=== PATIENT | male | born 1950 | race Caucasian/White ===

== ENCOUNTER 2021-12-07 00:23 | Inpatient (IN) | payer MEDICARE ==
[2021-12-07] MEDS ORDERED: LORazepam 2 MG/ML INJ IV STA ×4 (00:27→00:43)
[2021-12-07] MEDS ORDERED: ETOMIDATE 2 MG/ML 10 ML VIAL IVP STA (00:34)
[2021-12-07] MEDS ORDERED: SUCCINYLCHOLINE CHLORIDE 200 MG/10 ML VIAL IV ONE (00:34)
[2021-12-07 00:41] LABS: Glucose,Whole Blood 178 mg/dL (70-110)
[2021-12-07] MEDS ORDERED: SODIUM CHLORIDE 0.9% 1,000 ML IV ONE ×4 (00:41→09:16)
[2021-12-07] MEDS ORDERED: MORPHINE SULFATE 4 MG/ML SYRINGE IV STA (00:43)
[2021-12-07 01:19] LABS: ALT 19 U/L (4-49); AST 31 U/L (17-59); African American GFR (CKD) 88 (>60 ml/min/1.73 sqM); Albumin 4.6 g/dL (3.5-5.0); Alcohol <10 mg/dL; Alkaline Phosphatase 80 U/L (38-126); Anion Gap 22 mmol/L; Blood Urea Nitrogen 18 mg/dL (9-20); Calcium 9.8 mg/dL (8.4-10.2); Carbon Dioxide 16 mmol/L (22-30); Chloride 102 mmol/L (98-107); Glucose 186 mg/dL (74-99); Non-African American GFR(CKD) 77 (>60 ml/min/1.73 sqM); Partial Thromboplastin Time 21.2 sec (22.0-30.0); Potassium 5.4 mmol/L (3.5-5.1); Prothrombin Time 10.5 sec (9.0-12.0); Sodium 140 mmol/L (137-145); Total Protein 7.4 g/dL (6.3-8.2)
--- NOTE | 2021-12-07 01:21 | XR ---
EXAMINATION TYPE: XR chest 1V portable DATE OF EXAM: 12/07/2021 COMPARISON: NONE HISTORY: Altered mental status TECHNIQUE: Single view FINDINGS: There is nasogastric tube looped in the stomach. The lungs are clear of consolidation. No h eart failure. No hilar mass. There is endotracheal tube is high and 12 cm from the leo. Bony thora x is intact. IMPRESSION: NG tube is in the stomach. The endotracheal tube is high in the trachea.
[2021-12-07 01:26] LABS: Appearance,Urine Clear (Clear); Bacteria,Urine Rare /hpf; Bilirubin,Urine Negative (Negative); Blood,Urine Trace (Negative); Color,Urine Yellow; Glucose,Urine (UA) Negative (Negative); Hyaline Casts,Urine 36 /lpf (0-2); Ketones,Urine 1+ (Negative); Leukocyte Esterase,Urine Negative (Negative); Mucus,Urine Rare /hpf; Nitrite,Urine Negative (Negative); PH, Urine 5.5 (5.0-8.0); Protein,Urine 1+ (Negative); RBC,Urine 2 /hpf (0-5); Specific Gravity,Urine 1.024 (1.001-1.035); Transitional Epi Cells,Urine <1 /hpf (0-1); Urobilinogen,Urine <2.0 mg/dL (<2.0); WBC,Urine 5 /hpf (0-5)
[2021-12-07 01:27] LABS: Basophils # (A) 0.1 k/uL (0-0.2); Basophils % (A) 1 %; Eosinophils # (A) 0.2 k/uL (0-0.7); Eosinophils % (A) 2 %; HCT 51.7 % (39.0-53.0); HGB 16.9 gm/dL (13.0-17.5); Hypochromasia Slight; Lymphocytes % (A) 24 %; MCH 34.2 pg (25.0-35.0); MCHC 32.6 g/dL (31.0-37.0); MCV 104.7 fL (80.0-100.0); Macrocytosis Slight; Mean Platelet Volume 7.8; Monocytes # (A) 0.5 k/uL (0-1.0); Monocytes % (A) 4 %; Neutrophils # (A) 8.3 k/uL (1.3-7.7); Neutrophils % (A) 67 %; Platelet Count 642 k/uL (150-450); RBC 4.94 m/uL (4.30-5.90); RDW 14.2 % (11.5-15.5); WBC 12.4 k/uL (3.8-10.6)
[2021-12-07 01:31] LABS: Amphetamine Screen,Urine Not Detected (NotDetected); Barbiturate Screen,Urine Not Detected (NotDetected); Benzodiazepines Screen,Urine Not Detected (NotDetected); Cocaine Screen,Urine Not Detected (NotDetected); Methadone Screen, Urine Not Detected (NotDetected); Opiate Screen,Urine Not Detected (NotDetected); Oxycodone Screen, Urine Not Detected (NotDetected); Phencyclidine Screen,Urine Not Detected (NotDetected); Tricyclic Antidepressant,Urine Not Detected (NotDetected); Urn Cannabinoid Scrn Detected (NotDetected)
[2021-12-07 01:37] LABS: ABG Base Excess -2.9 mmol/L; ABG HCO3 25 mmol/L (21-25); ABG Hematocrit 47 % (34.0-46.0); ABG PCO2 61 mmHg (35-45); ABG PH 7.22 (7.35-7.45); ABG PO2 >400 mmHg (83-108); ABG TCO2 27 mmol/L (19-24); Allen Test Performed? Yes
--- NOTE | 2021-12-07 01:40 | CT ---
EXAMINATION TYPE: CT brain wo con DATE OF EXAM: 12/07/2021 COMPARISON: None HISTORY: Fall, AMS CT DLP: 1276 mGycm Automated exposure control for dose reduction was used. Images obtained of the brain with no contrast. There is some mild hypodensity in the periventricular white matter. There is mild cerebral cortical a trophy. There is no mass effect or midline shift. No sign of intracranial hemorrhage. There is mild e thmoid sinus mucosal thickening. Calvarium is intact. Skull base is intact. IMPRESSION: Mild atrophy. No acute intracranial abnormality. Mild chronic small vessel ischemia.
--- NOTE | 2021-12-07 02:00 | CT ---
EXAMINATION TYPE: CT angio thor/abd pel aorta DATE OF EXAM: 12/07/2021 COMPARISON: 01/02/2016 HISTORY: Fall, AMS CT DLP: [id number] mGycm Automated exposure control for dose reduction was used. CONTRAST: Performed with IV Contrast, patient injected with 100ml mL of Isovue 370. Images obtained from the thoracic inlet to the floor the pelvis with IV contrast. There are images fr om the thoracic inlet to the mid pelvis without contrast. There are Three-D postprocessed images. The lungs are clear of consolidation. There is mild interstitial infiltrate and atelectasis at the thor ng bases. Heart size is normal. No mediastinal adenopathy. There are no hilar masses. Thoracic aorta is intact. No aneurysm. Liver spleen appear intact. There is dilated stomach. There is nasogastric tube in the stomach. No di lated ducts. Liver shows no focal defect. There is a 1.7 cm cyst in the body of the pancreas. Gallbla dder appears normal. There is no adrenal mass. Kidneys show satisfactory contrast opacification. There is no hydronephrosi s. Ureters are not dilated. No retroperitoneal adenopathy. 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 No retroperitoneal adenopathy. There is Hudson catheter in the urinary kasey dder. No inguinal hernia. Urinary bladder is empty. There are numerous sigmoid diverticula. No divert iculitis. No pelvic mass. There is no mesenteric edema. No ascites or free air. No sign of a bowel obstruction. The thoracic aorta shows no aneurysm. The ascending aorta measures 3.3 cm. There is arterial flow in the celiac artery and superior mesenteric artery. There is arterial flow in the renal and iliac and f emoral arteries. No evidence of dissection. No evidence of hemodynamic stenosis. 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 Aneurysm is increased compared to old exam of 2016. Previous exam shows diameter of 3.5 cm. No evidence of a leak. No dissection. There is sigmoid diver ticulosis without diverticulitis. No evidence of hemodynamic arterial there are some interstitial inf iltrates at the lung bases which are new compared to old exam. Stenosis.
--- NOTE | 2021-12-07 02:28 | XR ---
EXAMINATION TYPE: XR chest 1V confirm line [facility] [place] DATE OF EXAM: 12/07/2021 COMPARISON: Today HISTORY: Tube placement TECHNIQUE: Single view FINDINGS: The endotracheal tube is 5.5 cm from the leo. Heart is normal. Lungs are clear of consol idation. Nasogastric tube is in the stomach. No pleural effusion. IMPRESSION: Endotracheal tube in fairly good position. No heart failure. No pulmonary consolidation
[2021-12-07] MEDS ORDERED: NALOXONE 0.4 MG/ML 1 ML VIAL IV PRN (03:07)
[2021-12-07] MEDS ORDERED: ARTIFICIAL TEARS OINTMENT 3.5 GM TUBE BOTH EYES PRN (03:07)
[2021-12-07] MEDS ORDERED: ACETAMINOPHEN SUPPOSITORY 650 MG SUPP RECTAL PRN (03:07)
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
[2021-12-07] MEDS ORDERED: LACTULOSE 20 GM/30 ML CUP NG-TUBE STA (03:33)
[2021-12-07 04:19] LABS: Glucose,Whole Blood 117 mg/dL (70-110)
[2021-12-07] MEDS: MORPHINE SULFATE 4 MG/ML SYRINGE IV PRN ×4 (04:25→22:35)
[2021-12-07] MEDS: SODIUM CHLORIDE 0.9% 1,000 ML IV SCH (05:08)
[2021-12-07 05:58] LABS: ABG Base Excess 1.9 mmol/L; ABG HCO3 28 mmol/L (21-25); ABG Hematocrit 44 % (34.0-46.0); ABG Oxygen Saturation 97.6 % (94-97); ABG PCO2 51 mmHg (35-45); ABG PH 7.34 (7.35-7.45); ABG PO2 94 mmHg (83-108); ABG TCO2 29 mmol/L (19-24); Allen Test Performed? Yes
[2021-12-07 06:40] LABS: African American GFR (CKD) >90 (>60 ml/min/1.73 sqM); Anion Gap 7 mmol/L; Blood Urea Nitrogen 16 mg/dL (9-20); Calcium 7.2 mg/dL (8.4-10.2); Carbon Dioxide 24 mmol/L (22-30); Chloride 107 mmol/L (98-107); Glucose 92 mg/dL (74-99); Non-African American GFR(CKD) >90 (>60 ml/min/1.73 sqM); Potassium 3.6 mmol/L (3.5-5.1); Sodium 138 mmol/L (137-145)
[2021-12-07] MEDS ORDERED: Potassium Replacement Protocol 1 EACH MISC MISCELLANE PRN (06:47)
[2021-12-07 07:00] LABS: Basophils # (A) 0.1 k/uL (0-0.2); Basophils % (A) 0 %; Eosinophils % (A) 0 %; HCT 40.3 % (39.0-53.0); Lymphocytes % (A) 8 %; MCH 34.5 pg (25.0-35.0); MCHC 34.1 g/dL (31.0-37.0); MCV 101.4 fL (80.0-100.0); Macrocytosis Slight; Mean Platelet Volume 7.6; Monocytes # (A) 0.8 k/uL (0-1.0); Monocytes % (A) 6 %; Neutrophils # (A) 11.7 k/uL (1.3-7.7); Neutrophils % (A) 85 %; Platelet Count 441 k/uL (150-450); RBC 3.97 m/uL (4.30-5.90); RDW 14.3 % (11.5-15.5); WBC 13.8 k/uL (3.8-10.6)
[2021-12-07] MEDS ORDERED: POTASSIUM BICARBONATE/CIT AC 20 MEQ TABLET.EFF NG-TUBE SCH (07:00)
[2021-12-07 07:02] LABS: HGB 13.7 gm/dL (13.0-17.5)
[2021-12-07] MEDS: IPRATROPIUM-ALBUTEROL 3 ML NEB INHALATION SCH ×4 (07:50→19:24)
[2021-12-07] MEDS: FAMOTIDINE 20 MG/2 ML VIAL IV SCH ×2 (09:23→22:36)
[2021-12-07] MEDS: CHLORHEXIDINE GLUCONATE 15 ML CUP MUCOUS MEM SCH ×2 (09:23→22:35)
--- NOTE | 2021-12-07 10:40 | P.CNPUL ---
History of Present Illness Consult date: 12/07/21 Requesting physician: Dani Paul Reason for consult: other Chief complaint: Syncope. History of present illness: Pulmonary/critical care consult dated 12/07/2021. 71-year-old male brought to the emergency room, on December 07. The patient apparently was at home, in the bathroom having a bowel movement. He apparently collapsed, and was unconscious for a period of time. EMS brought the patient in to be evaluated. It does not appear that he had any bystander CPR. Anyway, after being in the emergency room, the patient apparently became very agitated, and was refusing all treatments. He apparently was not able to give much of a history or any history. He received Ativan 10 mg, to settle him down, and eventually, so that he can be properly evaluated, was intubated by the ER physician. I did speak to the ER physician at about 3:00 in the morning. Currently, the patient's in the intensive care unit, on the ventilator, volume assist control, rate 22, tidal volume 400, FiO2 50%, and a PEEP of 5. Arterial blood gases show pO2 of 94, pCO2 51, and the pH is 7.34. His drug screen was positive for THC. His initial ammonia level was 167, but a repeat was in the normal range, suggesting that the initial one was maybe erroneous. His past medical history was positive for asthma, COPD, lymphoma, and ongoing tobacco and alcohol intake. He's currently on saline at 75 mL an hour, propofol at 45 mcg/kg/m, and is receiving a saline fluid bolus. Currently labs include a white count of 13.8, hemoglobin 13.7, hematocrit 40.3, and a platelet count of 441,000. Initial blood gases showed a pO2 of greater than 400, pCO2 of 61, and a pH is 7.22. Sodium, potassium, chloride, CO2, anion gap, BUN, and creatinine were all normal. The repeat ammonia level was less than 9. Calcium is 7.2. Chest was essentially normal. Brain CT showed nothing acute. CAT scan of the abdomen and pelvis and chest, revealed an aneurysm. There is also some bibasilar atelectasis/infiltrate. Review of Systems REVIEW OF SYSTEMS: CONSTITUTIONAL: Syncope. NEUROLOGIC: Acute agitation and mental status changes. HEENT: [ Negative.] CARDIAC: [Negative.] PULMONARY: [Negative.] GI: [Negative.] : [Negative.] RHEUMATOLOGIC: [ Negative.] IMMUNOLOGIC: [ Negative.] ENDOCRINE: [Negative. ] DERMATOLOGIC: [Negative.] Past Medical History Past Medical History: Asthma, Cancer, COPD Additional Past Medical History / Comment(s): Lymphoma , arthritis History of Any Multi-Drug Resistant Organisms: None Reported Past Surgical History: Tonsillectomy Additional Past Surgical History / Comment(s): mediport(not functioning), Past Anesthesia/Blood Transfusion Reactions: No Reported Reaction Additional Past Anesthesia/Blood Transfusion Reaction / Comment(s): only surg as child Past Psychological History: Anxiety Smoking Status: Current every day smoker Past Alcohol Use History: Occasional Additional Past Alcohol Use History / Comment(s): Current smoker Past Drug Use History: None Reported Additional Drug Use History / Comment(s): Per "pt sneaks cigarettes" and drinks maybe 1-2 beers a day. - Past Family History Father Family Medical History: Cancer Mother Family Medical History: Cancer Sister(s) Family Medical History: Cancer Medications and Allergies Home Medications Medication Instructions Recorded Confirmed Type Albuterol Inhaler [Ventolin 1 - 2 puff INHALATION Q6HR PRN 04/03/15 05/10/15 History Inhaler] Beclomethasone Dipropionate [Qvar 1 puff INHALATION BID 04/03/15 05/10/15 History 40 mcg/puff] Montelukast [Singulair] 10 mg PO HS 04/03/15 05/10/15 History Budesonide(Dose Unknown) 1 applicate INHALATION BID 05/07/15 05/10/15 History Allergies Allergy/AdvReac Type Severity Reaction Status Date / Time ibuprofen [From Motrin] Allergy Rash/Hives Verified 05/07/15 12:27 Physical Exam Osteopathic Statement: *. No significant issues noted on an osteopathic structural exam other than those noted in the History and Physical/Consult. Vitals: Vital Signs Temp Pulse Pulse Resp BP BP Pulse Ox 12/07/21 08:45 70 19 100/64 99 12/07/21 08:30 73 18 104/66 100 12/07/21 08:15 69 18 87/62 100 12/07/21 08:00 68 22 87/56 99 12/07/21 07:57 68 12/07/21 07:50 66 12/07/21 07:46 12/07/21 07:45 67 20 87/56 97 12/07/21 07:41 97 12/07/21 07:30 97.8 F 69 19 90/56 96 12/07/21 07:15 70 20 90/56 97 12/07/21 07:00 68 20 88/55 96 12/07/21 06:45 70 20 90/56 96 12/07/21 06:30 70 20 88/57 97 12/07/21 06:20 69 22 88/57 96 12/07/21 06:10 71 20 96/58 97 12/07/21 06:00 71 22 88/56 97 12/07/21 05:50 73 22 88/56 96 12/07/21 05:40 74 20 87/58 95 12/07/21 05:30 77 24 87/60 95 12/07/21 05:20 80 22 87/60 95 12/07/21 05:10 83 23 90/61 95 12/07/21 05:00 86 24 98/66 95 12/07/21 04:50 91 24 98/66 95 12/07/21 04:40 95 25 H 125/79 96 12/07/21 04:30 105 H 28 H 136/70 97 12/07/21 04:20 97.7 F 109 H 30 H 136/70 99 12/07/21 04:16 12/07/21 04:10 22 12/07/21 04:00 25 H 12/07/21 03:44 97.7 F 83 22 112/69 97 12/07/21 03:41 97.7 F 103 H 30 H 142/89 12/07/21 02:38 94 16 115/70 95 12/07/21 02:06 12/07/21 01:30 95 125/92 99 12/07/21 01:25 12/07/21 01:23 12/07/21 00:35 128 H 24 135/94 92 L FiO2 12/07/21 08:45 50 12/07/21 08:30 12/07/21 08:15 12/07/21 08:00 50 12/07/21 07:57 12/07/21 07:50 12/07/21 07:46 50 12/07/21 07:45 12/07/21 07:41 12/07/21 07:30 50 12/07/21 07:15 12/07/21 07:00 50 12/07/21 06:45 12/07/21 06:30 12/07/21 06:20 12/07/21 06:10 12/07/21 06:00 50 12/07/21 05:50 12/07/21 05:40 12/07/21 05:30 12/07/21 05:20 12/07/21 05:10 12/07/21 05:00 50 12/07/21 04:50 12/07/21 04:40 12/07/21 04:30 12/07/21 04:20 50 12/07/21 04:16 50 12/07/21 04:10 12/07/21 04:00 50 12/07/21 03:44 12/07/21 03:41 50 12/07/21 02:38 12/07/21 02:06 50 12/07/21 01:30 12/07/21 01:25 100 12/07/21 01:23 100 12/07/21 00:35 Intake and Output 12/06/21 12/07/21 12/07/21 22:59 06:59 14:59 Intake Total 762.461 7818 Output Total 285 130 Balance 20.321 2095 Intake: IV 2150 0.9 NACL 150 0.9 NACL bolus 2000 Intake, IV Titration 305.321 75 Amount Sodium Chloride 0.9% 1, 225 75 000 ml @ 75 mls/hr IV . [id number] ONE Rx#:[id number] propofoL 1,000 mg In 80.321 Empty Bag 1 bag @ 5 MCG/ KG/MIN 2.041 mls/hr IV . Q24H [facility] Rx#:[id number] Output: Urine 285 130 Other: Voiding Method Indwelling Catheter Indwelling Catheter Weight 68.039 kg No acute distress, sedated, with an orally placed endotracheal tube and NG tube. HEENT examination is grossly unremarkable. Neck supple. Full range of motion. No adenopathy thyromegaly or neck vein distention. Cardiovascular examination reveals regular rhythm rate. S1-S2 normal. No S3 or S4. No discernible murmur noted. Heart rate 70 bpm. Lungs reveal mostly clear breath sounds. Minimal scattered rhonchi. No wheezes or crackles. Breath sounds equal bilaterally. Saturations are 99%. Abdomen soft bowel sounds are heard. No masses or tenderness. Extremities are intact. No cyanosis clubbing or edema. Skin is without rash or lesion. Neurologic examination cannot be properly assessed at this time. Results - Laboratory Findings CBC and BMP: 12/07/21 06:06 12/07/21 06:06 ABG ABG pH 7.34 (7.35-7.45) L 12/07/21 05:57 ABG pCO2 51 mmHg (35-45) H 12/07/21 05:57 ABG pO2 94 mmHg (83-108) 12/07/21 05:57 ABG O2 Saturation 97.6 % (94-97) H 12/07/21 05:57 PT/INR, D-dimer PT 10.5 sec (9.0-12.0) 12/07/21 00:46 INR 1.0 (<1.2) 12/07/21 00:46 Abnormal lab findings: Abnormal Labs 12/07/21 12/07/21 12/07/21 00:36 00:39 00:46 WBC 12.4 H RBC MCV 104.7 H Plt Count 642 H Neutrophils # 8.3 H APTT 21.2 L ABG pH ABG pCO2 ABG pO2 ABG HCO3 ABG Total CO2 ABG O2 Saturation ABG Hematocrit Potassium Carbon Dioxide Glucose POC Glucose (mg/dL) 178 H Calcium Ammonia Urine Protein Urine Ketones Urine Blood Urine Bacteria Hyaline Casts Urine Mucus U Marijuana (THC) Screen 12/07/21 12/07/21 12/07/21 00:46 00:46 00:46 WBC RBC MCV Plt Count Neutrophils # APTT ABG pH ABG pCO2 ABG pO2 ABG HCO3 ABG Total CO2 ABG O2 Saturation ABG Hematocrit Potassium 5.4 H Carbon Dioxide 16 L Glucose 186 H POC Glucose (mg/dL) Calcium Ammonia 167 H Urine Protein 1+ H Urine Ketones 1+ H Urine Blood Trace H Urine Bacteria Rare H Hyaline Casts 36 H Urine Mucus Rare H U Marijuana (THC) Screen Detected H 12/07/21 12/07/21 12/07/21 01:30 04:17 05:57 WBC RBC MCV Plt Count Neutrophils # APTT ABG pH 7.22 L 7.34 L ABG pCO2 61 H 51 H ABG pO2 >400 H ABG HCO3 28 H ABG Total CO2 27 H 29 H ABG O2 Saturation 100.0 H 97.6 H ABG Hematocrit 47 H Potassium Carbon Dioxide Glucose POC Glucose (mg/dL) 117 H Calcium Ammonia Urine Protein Urine Ketones Urine Blood Urine Bacteria Hyaline Casts Urine Mucus U Marijuana (THC) Screen 12/07/21 12/07/21 06:06 06:06 WBC 13.8 H RBC 3.97 L MCV 101.4 H Plt Count Neutrophils # 11.7 H APTT ABG pH ABG pCO2 ABG pO2 ABG HCO3 ABG Total CO2 ABG O2 Saturation ABG Hematocrit Potassium Carbon Dioxide Glucose POC Glucose (mg/dL) Calcium 7.2 L Ammonia Urine Protein Urine Ketones Urine Blood Urine Bacteria Hyaline Casts Urine Mucus U Marijuana (THC) Screen - Diagnostic Findings Chest x-ray: image reviewed CT scan - chest: image reviewed Assessment and Plan Assessment: Acute syncope, of unclear etiology, followed by severe agitation and confusion, requiring intubation and mechanical ventilation on December 07. Mild respiratory acidosis. History of COPD/asthma. History of ongoing tobacco use with nicotine addiction. History of alcohol use, quantity unknown. History of lymphoma. Questionable hyperammonemia. Plan: Plan dated 11/29/2021. The patient was placed on updrafts, every 4 [id number]. The patient will be getting additional fluid bolus, because of hypotension. The patient's blood gases are fine. The patient has a very mild respiratory acidosis. Repeat ammonia level is less than 9. The patient remains on propofol for sedation. Labs, x-rays, and medications are all reviewed. Prognosis is guarded. Time with Patient: Greater than 30
--- NOTE | 2021-12-07 11:13 | P.HPIM ---
History of Present Illness Patient is a 71-year-old male [facility] emergency department with altered mental status patient was found on the floor at home and the family brought him here patient is quite a bit agitated and was given at 10 mg dose of Ativan and the morphine after which her his mental status has worsened because of which patient was intubated. Patient although found to have hypercapnic respiratory failure with pCO2 of around 60 and pH of 7.22 patient appears to be a heavy smoker smoker was wheezing on exam, patient is being treated for COPD exacerbation. Patient had elevated ammonia level up to 125 patient does drink alcohol on a regular basis although liver enzymes are within normal. Within a few hours this ammonia level has come down to less than 9. Patient was given a dose of lactulose. Patient the ABGs improved now with pCO2 of around 51 and pH of around 7.34. Patient has elevated white cell count. Patient is on assist- control ventilation with tidal volume of 400 FiO2 of 50% PEEP of 5 set up respiratory rate of 22. Patient is breathing over the ventilator. Patient does have history of lymphoma unsure whether this is in remission will have to get the hip that history from the family. Patient is on propofol drip at this time occasionally still getting agitated. CT of the brain and did not show any signi ficant abnormality of the thoracic CT did show 5 cm abdominal aortic aneurysm the size of which increased her from last test which was about 2 years ago from 3.5 cm. There was no evidence of leak or dissection. REVIEW OF SYSTEMS: Patient is intubated and sedated PHYSICAL EXAMINATION: GENERAL: Intubated sedated on ventilatory support as mentioned above HEENT: Pupils are round and equally reacting to light. EOMI. No scleral icterus. No conjunctival pallor. Normocephalic, atraumatic. No pharyngeal erythema. No thyromegaly. CARDIOVASCULAR: S1 and S2 present. No murmurs, rubs, or gallops. PULMONARY: Expiratory wheezing on exam ABDOMEN: Soft, nontender, nondistended, normoactive bowel sounds. No palpable organomegaly. MUSCULOSKELETAL: No joint swelling or deformity. EXTREMITIES: No cyanosis, clubbing, or pedal edema. NEUROLOGICAL: Sedated SKIN: No rashes. Assessment and plan -Altered mental status etiology is not clear may be related to marijuana use and may be secondary to hypercapnic respiratory failure as well. It appears to have metabolic encephalopathy. Patient had elevated ammonia level but my suspicion for hepatic encephalopathy is low as the repeat test was less than 9 within few hours and only received 1 dose of lactulose -Respiratory acidosis and acute respiratory failure, hypercapnic respiratory failure acute secondary to COPD exacerbation patient will be started on systemic steroids -History of lymphoma unknown whether patient is actually receiving treatment or and relapse -Leukocytosis which is reactive -Acute COPD exacerbation -Nicotine use -Possibly of syncope patient is undergoing workup for syncope as well as seizures carotid Doppler is being obtained and a neurology was consulted from ER, EGDs being obtained by neurology. DVT prophylaxis: Lovenox Past Medical History Past Medical History: Asthma, Cancer, COPD Additional Past Medical History / Comment(s): Lymphoma , arthritis History of Any Multi-Drug Resistant Organisms: None Reported Past Surgical History: Tonsillectomy Additional Past Surgical History / Comment(s): mediport(not functioning), Past Anesthesia/Blood Transfusion Reactions: No Reported Reaction Additional Past Anesthesia/Blood Transfusion Reaction / Comment(s): only surg as child Past Psychological History: Anxiety Smoking Status: Current every day smoker Past Alcohol Use History: Occasional Additional Past Alcohol Use History / Comment(s): Current smoker Past Drug Use History: None Reported Additional Drug Use History / Comment(s): Per "pt sneaks cigarettes" and d rinks maybe 1-2 beers a day. - Past Family History Father Family Medical History: Cancer Mother Family Medical History: Cancer Sister(s) Family Medical History: Cancer Medications and Allergies Home Medications Medication Instructions Recorded Confirmed Type Albuterol Inhaler [Ventolin 1 - 2 puff INHALATION Q6HR PRN 04/03/15 05/10/15 History Inhaler] Beclomethasone Dipropionate [Qvar 1 puff INHALATION BID 04/03/15 05/10/15 History 40 mcg/puff] Montelukast [Singulair] 10 mg PO HS 04/03/15 05/10/15 History Budesonide(Dose Unknown) 1 applicate INHALATION BID 05/07/15 05/10/15 History Allergies Allergy/AdvReac Type Severity Reaction Status Date / Time ibuprofen [From Motrin] Allergy Rash/Hives Verified 05/07/15 12:27 Physical Exam Vitals: Vital Signs Temp Pulse Pulse Resp BP BP Pulse Ox 12/07/21 09:15 67 22 84/57 98 12/07/21 09:00 68 20 100/64 98 12/07/21 08:45 70 19 100/64 99 12/07/21 08:30 73 18 104/66 100 12/07/21 08:15 69 18 87/62 100 12/07/21 08:00 68 22 87/56 99 12/07/21 07:57 68 12/07/21 07:50 66 12/07/21 07:46 12/07/21 07:45 67 20 87/56 97 12/07/21 07:41 97 12/07/21 07:30 97.8 F 69 19 90/56 96 12/07/21 07:15 70 20 90/56 97 12/07/21 07:00 68 20 88/55 96 12/07/21 06:45 70 20 90/56 96 12/07/21 06:30 70 20 88/57 97 12/07/21 06:20 69 22 88/57 96 12/07/21 06:10 71 20 96/58 97 12/07/21 06:00 71 22 88/56 97 12/07/21 05:50 73 22 88/56 96 12/07/21 05:40 74 20 87/58 95 12/07/21 05:30 77 24 87/60 95 12/07/21 05:20 80 22 87/60 95 12/07/21 05:10 83 23 90/61 95 12/07/21 05:00 86 24 98/66 95 12/07/21 04:50 91 24 98/66 95 12/07/21 04:40 95 25 H 125/79 96 12/07/21 04:30 105 H 28 H 136/70 97 12/07/21 04:20 97.7 F 109 H 30 H 136/70 99 12/07/21 04:16 12/07/21 04:10 22 12/07/21 04:00 25 H 12/07/21 03:44 97.7 F 83 22 112/69 97 12/07/21 03:41 97.7 F 103 H 30 H 142/89 12/07/21 02:38 94 16 115/70 95 12/07/21 02:06 12/07/21 01:30 95 125/92 99 12/07/21 01:25 12/07/21 01:23 12/07/21 00:35 128 H 24 135/94 92 L FiO2 12/07/21 09:15 12/07/21 09:00 50 12/07/21 08:45 50 12/07/21 08:30 12/07/21 08:15 12/07/21 08:00 50 12/07/21 07:57 12/07/21 07:50 12/07/21 07:46 50 12/07/21 07:45 12/07/21 07:41 12/07/21 07:30 50 12/07/21 07:15 12/07/21 07:00 50 12/07/21 06:45 12/07/21 06:30 12/07/21 06:20 12/07/21 06:10 12/07/21 06:00 50 12/07/21 05:50 12/07/21 05:40 12/07/21 05:30 12/07/21 05:20 12/07/21 05:10 12/07/21 05:00 50 12/07/21 04:50 12/07/21 04:40 12/07/21 04:30 12/07/21 04:20 50 12/07/21 04:16 50 12/07/21 04:10 12/07/21 04:00 50 12/07/21 03:44 12/07/21 03:41 50 12/07/21 02:38 12/07/21 02:06 50 12/07/21 01:30 12/07/21 01:25 100 12/07/21 01:23 100 12/07/21 00:35 Intake and Output 12/06/21 12/07/21 12/07/21 22:59 06:59 14:59 Intake Total 665.115 1085 Output Total 285 230 Balance 20.321 2070 Intake: IV 2225 0.9 NACL 225 0.9 NACL bolus 2000 Intake, IV Titration 305.321 75 Amount Sodium Chloride 0.9% 1, 225 75 000 ml @ 75 mls/hr IV . [id number] ONE Rx#:[id number] propofoL 1,000 mg In 80.321 Empty Bag 1 bag @ 5 MCG/ KG/MIN 2.041 mls/hr IV . Q24H [facility] Rx#:[id number] Output: Urine 285 230 Other: Voiding Method Indwelling Catheter Indwelling Catheter Weight 68.039 kg Results CBC & Chem 7: 12/07/21 06:06 12/07/21 06:06 Labs: Abnormal Lab Results - Last 24 Hours (Table) 12/07/21 12/07/21 12/07/21 Range/Units 00:36 00:39 00:46 WBC 12.4 H (3.8-10.6) k/uL RBC (4.30-5.90) m/uL MCV 104.7 H (80.0-100.0) fL Plt Count 642 H (150-450) k/uL Neutrophils # 8.3 H (1.3-7.7) k/uL APTT 21.2 L (22.0-30.0) sec ABG pH (7.35-7.45) ABG pCO2 (35-45) mmHg ABG pO2 (83-108) mmHg ABG HCO3 (21-25) mmol/L ABG Total CO2 (19-24) mmol/L ABG O2 Saturation (94-97) % ABG Hematocrit (34.0-46.0) % Potassium (3.5-5.1) mmol/L Carbon Dioxide (22-30) mmol/L Glucose (74-99) mg/dL POC Glucose (mg/dL) 178 H (70-110) mg/dL Calcium (8.4-10.2) mg/dL Ammonia (<30) umol/L Urine Protein (Negative) Urine Ketones (Negative) Urine Blood (Negative) Urine Bacteria (None) /hpf Hyaline Casts (0-2) /lpf Urine Mucus (None) /hpf U Marijuana (THC) Screen (NotDetected) 12/07/21 12/07/21 12/07/21 Range/Units 00:46 00:46 00:46 WBC (3.8-10.6) k/uL RBC (4.30-5.90) m/uL MCV (80.0-100.0) fL Plt Count (150-450) k/uL Neutrophils # (1.3-7.7) k/uL APTT (22.0-30.0) sec ABG pH (7.35-7.45) ABG pCO2 (35-45) mmHg ABG pO2 (83-108) mmHg ABG HCO3 (21-25) mmol/L ABG Total CO2 (19-24) mmol/L ABG O2 Saturation (94-97) % ABG Hematocrit (34.0-46.0) % Potassium 5.4 H (3.5-5.1) mmol/L Carbon Dioxide 16 L (22-30) mmol/L Glucose 186 H (74-99) mg/dL POC Glucose (mg/dL) (70-110) mg/dL Calcium (8.4-10.2) mg/dL Ammonia 167 H (<30) umol/L Urine Protein 1+ H (Negative) Urine Ketones 1+ H (Negative) Urine Blood Trace H (Negative) Urine Bacteria Rare H (None) /hpf Hyaline Casts 36 H (0-2) /lpf Urine Mucus Rare H (None) /hpf U Marijuana (THC) Screen Detected H (NotDetected) 12/07/21 12/07/21 12/07/21 Range/Units 01:30 04:17 05:57 WBC (3.8-10.6) k/uL RBC (4.30-5.90) m/uL MCV (80.0-100.0) fL Plt Count (150-450) k/uL Neutrophils # (1.3-7.7) k/uL APTT (22.0-30.0) sec ABG pH 7.22 L 7.34 L (7.35-7.45) ABG pCO2 61 H 51 H (35-45) mmHg ABG pO2 >400 H (83-108) mmHg ABG HCO3 28 H (21-25) mmol/L ABG Total CO2 27 H 29 H (19-24) mmol/L ABG O2 Saturation 100.0 H 97.6 H (94-97) % ABG Hematocrit 47 H (34.0-46.0) % Potassium (3.5-5.1) mmol/L Carbon Dioxide (22-30) mmol/L Glucose (74-99) mg/dL POC Glucose (mg/dL) 117 H (70-110) mg/dL Calcium (8.4-10.2) mg/dL Ammonia (<30) umol/L Urine Protein (Negative) Urine Ketones (Negative) Urine Blood (Negative) Urine Bacteria (None) /hpf Hyaline Casts (0-2) /lpf Urine Mucus (None) /hpf U Marijuana (THC) Screen (NotDetected) 12/07/21 12/07/21 Range/Units 06:06 06:06 WBC 13.8 H (3.8-10.6) k/uL RBC 3.97 L (4.30-5.90) m/uL MCV 101.4 H (80.0-100.0) fL Plt Count (150-450) k/uL Neutrophils # 11.7 H (1.3-7.7) k/uL APTT (22.0-30.0) sec ABG pH (7.35-7.45) ABG pCO2 (35-45) mmHg ABG pO2 (83-108) mmHg ABG HCO3 (21-25) mmol/L ABG Total CO2 (19-24) mmol/L ABG O2 Saturation (94-97) % ABG Hematocrit (34.0-46.0) % Potassium (3.5-5.1) mmol/L Carbon Dioxide (22-30) mmol/L Glucose (74-99) mg/dL POC Glucose (mg/dL) (70-110) mg/dL Calcium 7.2 L (8.4-10.2) mg/dL Ammonia (<30) umol/L Urine Protein (Negative) Urine Ketones (Negative) Urine Blood (Negative) Urine Bacteria (None) /hpf Hyaline Casts (0-2) /lpf Urine Mucus (None) /hpf U Marijuana (THC) Screen (NotDetected) Thrombosis Risk Factor Assmnt - Choose All That Apply Any of the Below Risk Factors Present?: Yes Each Factor Represents 1 point: Abnormal pulmonary function (COPD), Medical pt on bed rest Other Risk Factors: Yes Each Risk Factor Represents 2 Points: Age 61-74 years, Patient confined to bed Thrombosis Risk Factor Assessment Total Risk Factor Score: 6 Thrombosis Risk Factor Assessment Level: High Risk
[2021-12-07] MEDS: methylPREDNISolone SOD SUCCI 40 MG/ML 1 ML VIAL IV SCH ×2 (11:41→22:35)
[2021-12-07] MEDS: NOREPINEPHRINE 4 MG in SODIUM CHLORIDE 0.9% 250 ML IV SCH (11:53)
--- NOTE | 2021-12-07 13:31 | US ---
EXAMINATION TYPE: US carotid duplex BILAT DATE OF EXAM: 12/07/2021 COMPARISON: NONE CLINICAL HISTORY: syncope. Syncope. TECHNIQUE: Carotid duplex ultrasound examination. Indirect Doppler criteria was utilized. FINDINGS: EXAM MEASUREMENTS: RIGHT: Peak Systolic Velocity (PSV) cm/sec ----- Right CCA: 95.2 ----- Right ICA: 115.7 ----- Right ECA: 143.0 ICA/CCA ratio: 1.2 RIGHT: End Diastole cm/sec ----- Right CCA: 20.4 ----- Right ICA: 25.2 ----- Right ECA: 11.0 LEFT: Peak Systolic Velocity (PSV) cm/sec ----- Left CCA: 115.1 ----- Left ICA: 136.2 ----- Left ECA: 143.1 ICA/CCA ratio: 1.2 LEFT: End Diastole cm/sec ----- Left CCA: 24.1 ----- Left ICA: 24.7 ----- Left ECA: 9.0 VERTEBRALS (direction of flow): Right Vertebral: Antegrade Left Vertebral: Antegrade Rhythm: Normal INSPECTOR RADAR AND ELECTRONICS NOTES: Exam is limited due to movement, patient is on a ventilator. Exam done portable. Intimal thickening seen bilaterally. Plaque seen within bilateral bulbs and prox right ICA. *Elevated velocities within bilateral ECA and left ICA. Incidental finding: Anechoic area seen within right thyroid lobe: 0.9 x 0.8 x 0.7 cm. Hypoechoic area with hyperechoic center seen within the left neck: 1.1 x 1.0 x 0.5 cm consistent with normal lymph node. IMPRESSION: Limited exam with Less than 50% stenosis of the bilateral carotid bifurcations. Criteria for Assigning % of Stenosis / Diameter reduction (Estimation based on the indirect measurements of the internal carotid artery velocities (ICA PSV). 1. Normal (no stenosis)=ICA PSV < 125 cm/s: ratio < 2.0: ICA EDV<40 cm/s. 2. Less than 50% stenosis=ICA PSV < 125 cm/s: ratio < 2.0: ICA EDV<40 cm/s. 3. 50 to 69% stenosis=ICA PSV of 125 to 230 cm/s: ration 2.0 ? 4.0: ICA EDV 40-100 cm/s. 4. Greater than 70% stenosis to near occlusion= ICA PSV > 230 cm/s: ratio > 4.0: ICA EDV > 100 cm/s. 5. Near occlusion= ICA PSV velocities may be low or undetectable: variable ratio and ICA EDV. 6. Total occlusion=unable to detect flow.
--- NOTE | 2021-12-07 14:26 | P.CNNES ---
History of Present Illness Consult date: 12/07/21 Requesting physician: Danny Beck Reason for Consult: Altered mental status History of Present Illness: Patient is a 71-year-old male came to the hospital by ambulance early this morning at 12:23 AM. According to EMS flow sheet when they arrived, patient was in the bathroom floor with family present. Family mentioned that patient got up to use the bathroom and shortly after they heard him fall. Family states they found patient unresponsive on the bathroom floor, patient regained consciousness but was not acting appropriate and skin was purple. Family states patient was trying to talk but sounded slurred and did not make sense. Last known well was when he went to bed around 9 PM. No use of blood thinners family mentioned that patient was fine prior to this episode and had no recent history of illnesses. On their examination patient was altered, alert but incoherent and uncooperative. Skin was diaphoretic with cyanosis. Pupils 4 mm. Patient has multiple skin tears with active bleeding was lower arms bilaterally. Patient does not follow commands. They were unable to perform stroke assessment. Patient was noted to have combative behavior and EKG shows sinus rhythm. Patient was hypoxic, and they attempted to admit oxygen via nonrebreather mask at 15 Ditter per minute but patient removed oxygen tubing. Vital signs on arrival blood pressure could not be taken because of patient confusion. Pulse rate was 96. Respiration 30, saturation 86%. Blood glucose 1 56 mg/dL. Vital signs arrival blood pressure 135/94 pulse rate 24 temperature 97.7F. Blood test shows review BC 12.4 hemoglobin 16.9, elevated MCV 104.7 and platelet 642. PTT PTT normal, ABG with pH 7.22, pCO2 61, as pO2 400 and saturation 100%. Patient's sodium is normal potassium 5.4, normal renal and hepatic panel. Am monia is elevated 167. Troponin negative. UA is negative and urine drug screen positive for marijuana. Blood alcohol level negative. CT head showed mild atrophy. No acute intracranial abnormality. Mild chronic small vessel ischemia. Chest x-ray reported as normal. CT of the chest showed a 5 cm aneurysm of the mid abdominal aorta. Aneurysm is increased compared to old exam of 2016. Previous exam shows diameter of 3.5 cm. No evidence of a leak. No dissection. In the ER patient was very agitated, restless, wild. He had to be restrained in order to place IV. Patient received multiple doses of Ativan, 2 mg at 12:34 AM, 2 mg at 12:28 AM, 2 mg at 12:27 AM and 4 mg at 12:40 AM. Mahad puentes became very groggy, therefore was intubated. Apparently patient required succinylcholine and etomidate for intubation. Patient arrived to the ICU about 2 hours earlier. Per nurse report, patient has been sedated, on mechanical ventilation. No seizure-like activity has been noticed. When the sedation is decreased, he becomes very restless, agitated. There is some report of possible tobacco and alcohol use. He does have asthma, COPD also has history of lymphoma and has a MediPort. I spoke to patient's on the phone. She concurred regarding the history as mentioned above. She mentioned that patient was a heavy drinker for almost 10 years, quit 20 years ago. Now he barely drinks alcohol. A shunt admitted that yesterday they went to [employer] in [place] and he had a drink of jumbled [place] and had a tequila drink with dinner. He smokes marijuana occasionally. She does not know how much he smokes tobacco. Review of Systems ROS unobtainable: due to endotracheal tube, due to mental status Past Medical History Past Medical History: Asthma, Cancer, COPD Additional Past Medical History / Comment(s): Lymphoma , arthritis History of Any Multi-Drug Resistant Organisms: None Reported Past Surgical History: Tonsillectomy Additional Past Surgical History / Comment(s): mediport(not functioning), Past Anesthesia/Blood Transfusion Reactions: No Reported Reaction Additional Past Anesthesia/Blood Transfusion Reaction / Comment(s): only surg as child Past Psychological History: Anxiety Smoking Status: Current every day smoker Past Alcohol Use History: Occasional Additional Past Alcohol Use History / Comment(s): Current smoker Past Drug Use History: None Reported Additional Drug Use History / Comment(s): Per "pt sneaks cigarettes" and drinks maybe 1-2 beers a day. - Past Family History Father Family Medical History: Cancer Mother Family Medical History: Cancer Sister(s) Family Medical History: Cancer Medications and Allergies Home Medications Medication Instructions Recorded Confirmed Type Albuterol Inhaler [Ventolin 1 - 2 puff INHALATION Q6HR PRN 04/03/15 05/10/15 History Inhaler] Beclomethasone Dipropionate [Qvar 1 puff INHALATION BID 04/03/15 05/10/15 History 40 mcg/puff] Montelukast [Singulair] 10 mg PO HS 04/03/15 05/10/15 History Budesonide(Dose Unknown) 1 applicate INHALATION BID 05/07/15 05/10/15 History Allergies Allergy/AdvReac Type Severity Reaction Status Date / Time ibuprofen [From Motrin] Allergy Rash/Hives Verified 05/07/15 12:27 Physical Examination - Vital Signs Vital Signs: Vital Signs Temp Pulse Pulse Resp BP BP Pulse Ox 12/07/21 07:57 68 12/07/21 07:50 66 12/07/21 07:46 12/07/21 07:41 97 12/07/21 07:15 70 20 90/56 97 12/07/21 07:00 68 20 88/55 96 12/07/21 06:45 70 20 90/56 96 12/07/21 06:30 70 20 88/57 97 12/07/21 06:20 69 22 88/57 96 12/07/21 06:10 71 20 96/58 97 12/07/21 06:00 71 22 88/56 97 12/07/21 05:50 73 22 88/56 96 12/07/21 05:40 74 20 87/58 95 12/07/21 05:30 77 24 87/60 95 12/07/21 05:20 80 22 87/60 95 12/07/21 05:10 83 23 90/61 95 12/07/21 05:00 86 24 98/66 95 12/07/21 04:50 91 24 98/66 95 12/07/21 04:40 95 25 H 125/79 96 12/07/21 04:30 105 H 28 H 136/70 97 12/07/21 04:20 97.7 F 109 H 30 H 136/70 99 12/07/21 04:16 12/07/21 04:10 22 12/07/21 04:00 25 H 12/07/21 03:44 97.7 F 83 22 112/69 97 12/07/21 03:41 97.7 F 103 H 30 H 142/89 12/07/21 02:38 94 16 115/70 95 12/07/21 02:06 12/07/21 01:30 95 125/92 99 12/07/21 01:25 12/07/21 01:23 12/07/21 00:35 128 H 24 135/94 92 L FiO2 12/07/21 07:57 12/07/21 07:50 12/07/21 07:46 50 12/07/21 07:41 12/07/21 07:15 12/07/21 07:00 50 12/07/21 06:45 12/07/21 06:30 12/07/21 06:20 12/07/21 06:10 12/07/21 06:00 50 12/07/21 05:50 12/07/21 05:40 12/07/21 05:30 12/07/21 05:20 12/07/21 05:10 12/07/21 05:00 50 12/07/21 04:50 12/07/21 04:40 12/07/21 04:30 12/07/21 04:20 50 12/07/21 04:16 50 12/07/21 04:10 12/07/21 04:00 50 12/07/21 03:44 12/07/21 03:41 50 12/07/21 02:38 12/07/21 02:06 50 12/07/21 01:30 12/07/21 01:25 100 12/07/21 01:23 100 12/07/21 00:35 Intake and Output 12/06/21 12/07/21 12/07/21 22:59 06:59 14:59 Intake Total 305.321 75 Output Total 285 65 Balance 20.321 10 Intake: Intake, IV Titration 305.321 75 Amount Sodium Chloride 0.9% 1, 225 75 000 ml @ 75 mls/hr IV . [id number] Rx#:[id number] propofoL 1,000 mg In 80.321 Empty Bag 1 bag @ 5 MCG/ KG/MIN 2.041 mls/hr IV . Q24H [facility] Rx#:[id number] Output: Urine 285 65 Other: Voiding Method Indwelling Catheter Weight 68.039 kg Patient is an elderly male, who is sedated, intubated. Patient currently on propofol 45 mcg/kg/m. When the sedation is decreased, patient becomes "wild". No seizure-like activity observed at this time. On cranial nerve examination, pupils are equal, round and reacting to light, oculocephalics are absent. Corneals slightly present. Patient does have a cough and gag. Patient is breathing over the ventilator. On muscle strength testing, patient's tone is equal bilaterally. Patient is sedated. Deep tendon reflexes are symmetric and trace in the upper limbs, 1+ at the knees, plantars are flat bilaterally. Sensory and cerebellar functions cannot be assessed. Gait patient intubated. On general examination, there is no carotid bruit or murmur, S1-S2 audible. Chest has some rhonchi. Abdomen is soft nontender. No organomegaly, bowel sounds present. Peripheral pulses are present. No edema. Patient has some capillary telangiectasia over his chest. Results - Laboratory Findings CBC and BMP: 12/07/21 06:06 12/07/21 06:06 Abnormal Lab Findings: Abnormal Labs 12/07/21 12/07/21 12/07/21 00:36 00:39 00:46 WBC 12.4 H RBC MCV 104.7 H Plt Count 642 H Neutrophils # 8.3 H APTT 21.2 L ABG pH ABG pCO2 ABG pO2 ABG HCO3 ABG Total CO2 ABG O2 Saturation ABG Hematocrit Potassium Carbon Dioxide Glucose POC Glucose (mg/dL) 178 H Calcium Ammonia Urine Protein Urine Ketones Urine Blood Urine Bacteria Hyaline Casts Urine Mucus U Marijuana (THC) Screen 12/07/21 12/07/21 12/07/21 00:46 00:46 00:46 WBC RBC MCV Plt Count Neutrophils # APTT ABG pH ABG pCO2 ABG pO2 ABG HCO3 ABG Total CO2 ABG O2 Saturation ABG Hematocrit Potassium 5.4 H Carbon Dioxide 16 L Glucose 186 H POC Glucose (mg/dL) Calcium Ammonia 167 H Urine Protein 1+ H Urine Ketones 1+ H Urine Blood Trace H Urine Bacteria Rare H Hyaline Casts 36 H Urine Mucus Rare H U Marijuana (THC) Screen Detected H 12/07/21 12/07/21 12/07/21 01:30 04:17 05:57 WBC RBC MCV Plt Count Neutrophils # APTT ABG pH 7.22 L 7.34 L ABG pCO2 61 H 51 H ABG pO2 >400 H ABG HCO3 28 H ABG Total CO2 27 H 29 H ABG O2 Saturation 100.0 H 97.6 H ABG Hematocrit 47 H Potassium Carbon Dioxide Glucose POC Glucose (mg/dL) 117 H Calcium Ammonia Urine Protein Urine Ketones Urine Blood Urine Bacteria Hyaline Casts Urine Mucus U Marijuana (THC) Screen 12/07/21 12/07/21 06:06 06:06 WBC 13.8 H RBC 3.97 L MCV 101.4 H Plt Count Neutrophils # 11.7 H APTT ABG pH ABG pCO2 ABG pO2 ABG HCO3 ABG Total CO2 ABG O2 Saturation ABG Hematocrit Potassium Carbon Dioxide Glucose POC Glucose (mg/dL) Calcium 7.2 L Ammonia Urine Protein Urine Ketones Urine Blood Urine Bacteria Hyaline Casts Urine Mucus U Marijuana (THC) Screen Assessment and Plan Assessment: * Syncopal spell followed by severe agitation and confusion. Rule out ?postictal state. * Altered mental status, possible hepatic encephalopathy. Patient's ammonia was highly elevated 167. However repeat ammonia level is < 9 (after one dose of lactulose). * Patient has normal temperature, but has mild leukocytosis. Encephalitis in the differential, (less likely). Likewise CVA less likely. Limited examination nonfocal. * Status post intubation, on mechanical ventilation. Possible partly due to medications. * Macrocytosis, with remote history of alcoholism * History of lymphoma in remission. * History of prostate cancer * COPD * Thoracic aortic aneurysm Plan: * Stat EEG to evaluate for epileptiform activity, rule out partial status, rule out herpes encephalitis. * Carotid Doppler was performed today which revealed limited exam, with less than 50% stenosis of bilateral ICA. * Patient started on lactulose. Repeat ammonia level is normal. * Thiamine 100 mg daily * Consider repeating CT head in the morning, if patient's mentation does not improve. * DVT prophylaxis: Patient on Lovenox 40 mg subcu daily. * Dr. Nikhil Gomez Will resume neurology service in the morning. * Discussed with patient's family in detail. * Thank you for the consult. EEG revealed background disorganization with mixed frequency activity, suggestive of mild encephalopathy or medication effect. No epileptiform activity was seen. Time with Patient: Greater than 30
--- NOTE | 2021-12-07 21:07 | XR ---
EXAMINATION TYPE: XR chest 1V portable DATE OF EXAM: 12/07/2021 COMPARISON: NONE HISTORY: 12/07/2021 TECHNIQUE: Single view FINDINGS: Endotracheal tube is 6.5 cm from the leo. There is nasogastric tube looped in the stomac h. Lungs are clear of consolidation. No heart failure. There is some minimal pleural reaction right l ateral lung base. There are chest leads. IMPRESSION: There is some new pleural reaction and infiltrate lateral right lung base compared to exa m earlier today. Normal heart.
[2021-12-07] MEDS: THIAMINE 100 MG TAB PO SCH (22:50)
--- NOTE | 2021-12-07 23:48 | EEG ---
ELECTROENCEPHALOGRAM REPORT PREAMBLE: This is a 71-year-old male with a syncopal spell, followed by severe altered mental status, encephalopathy, and agitation. This study is performed to rule out any epileptiform activity. EEG FINDINGS: This is a 21-channel digital EEG recorded with video competent, utilizing 10/20 International System with referential and bipolar montages. Background consists of moderately well-developed and regulated, mixed frequency of low-voltage fast frequency beta, mixed with some theta and some alpha activity seen in bihemispheric region. Background does not seem to be clearly reactive to eye opening and closing. Photic driving response was not seen. Different stages of sleep were not seen. No focal or generalized epileptiform activity was seen. IMPRESSION: This is an abnormal EEG due to the background disorganization, with mixed frequency activity in bihemispheric region. This is suggestive of mild generalized cerebral dysfunction as can be seen with encephalopathy or medication effect. No epileptiform activity was seen. MMODL / IJN: [id number] /
[2021-12-08] MEDS: NOREPINEPHRINE 4 MG in SODIUM CHLORIDE 0.9% 250 ML IV SCH (00:04)
[2021-12-08] MEDS: MORPHINE SULFATE 4 MG/ML SYRINGE IV PRN ×3 (00:25→15:32)
[2021-12-08 01:41] LABS: Glucose,Whole Blood 112 mg/dL (70-110)
[2021-12-08] MEDS: SODIUM CHLORIDE 0.9% 1,000 ML IV SCH (04:22)
[2021-12-08 05:23] LABS: ABG Base Excess -3.5 mmol/L; ABG HCO3 23 mmol/L (21-25); ABG Hematocrit 43 % (34.0-46.0); ABG Oxygen Saturation 95.8 % (94-97); ABG PCO2 45 mmHg (35-45); ABG PH 7.32 (7.35-7.45); ABG PO2 76 mmHg (83-108); ABG TCO2 24 mmol/L (19-24); Allen Test Performed? Yes
[2021-12-08 05:45] LABS: T4, Free (Free Thyroxine) 1.26 ng/dL (0.78-2.19)
[2021-12-08 05:53] LABS: HCT 43.6 % (39.0-53.0); HGB 13.6 gm/dL (13.0-17.5); MCH 31.8 pg (25.0-35.0); MCHC 31.1 g/dL (31.0-37.0); Macrocytosis Slight; Platelet Count 371 k/uL (150-450); RBC 4.28 m/uL (4.30-5.90); RDW 13.9 % (11.5-15.5); WBC 18.1 k/uL (3.8-10.6)
[2021-12-08 06:00] LABS: African American GFR (CKD) >90 (>60 ml/min/1.73 sqM); Anion Gap 10 mmol/L; Blood Urea Nitrogen 9 mg/dL (9-20); Calcium 8.2 mg/dL (8.4-10.2); Carbon Dioxide 16 mmol/L (22-30); Chloride 110 mmol/L (98-107); Glucose 114 mg/dL (74-99); Non-African American GFR(CKD) >90 (>60 ml/min/1.73 sqM); Potassium 4.8 mmol/L (3.5-5.1); Sodium 136 mmol/L (137-145)
--- NOTE | 2021-12-08 07:25 | XR ---
EXAMINATION TYPE: XR chest 1V portable DATE OF EXAM: 12/08/2021 5:47 AM COMPARISON: Chest radiographs from 12/07/2021 TECHNIQUE: XR chest 1V portable Portable AP radiograph of the chest. CLINICAL INDICATION:Male, 71 years old with history of Tube placement; FINDINGS: Lungs/Pleura: There is flattening of the diaphragm with increased lucency of the lungs. No evidence o f pneumothorax, pleural effusion or focal consolidation. Pulmonary vascularity: Unremarkable. Heart/mediastinum: Cardiomediastinal silhouette is unremarkable. Musculoskeletal: No acute osseous pathology. Other findings: None Lines/Tubes: Endotracheal tube with distal tip 6.9 cm above the leo Nasogastric tube with its distal tip and side-port projecting under the diaphragm. IMPRESSION: 1. Similar position of endotracheal tube 6.9 cm above the leo. 2. No acute cardiopulmonary disease/process. 3. COPD changes.
[2021-12-08] MEDS: IPRATROPIUM-ALBUTEROL 3 ML NEB INHALATION SCH ×4 (07:40→19:10)
[2021-12-08] MEDS: CHLORHEXIDINE GLUCONATE 15 ML CUP MUCOUS MEM SCH ×2 (08:05→20:31)
[2021-12-08] MEDS: FAMOTIDINE 20 MG/2 ML VIAL IV SCH ×2 (08:05→20:31)
[2021-12-08] MEDS: methylPREDNISolone SOD SUCCI 40 MG/ML 1 ML VIAL IV SCH ×2 (08:05→20:31)
[2021-12-08] MEDS: ENOXAPARIN 40 MG/0.4 ML SYRINGE SQ SCH (08:05)
[2021-12-08] MEDS: THIAMINE 100 MG TAB PO SCH (08:05)
[2021-12-08] MEDS: DEXMEDETOMIDINE/0.9% NACL(PMX) 400 MCG in EMPTY BAG 1 BAG IV SCH (11:00)
[2021-12-08 11:31] LABS: Glucose,Whole Blood 108 mg/dL (70-110)
--- NOTE | 2021-12-08 12:41 | P.PN ---
Subjective Progress Note Date: 12/08/21 On 12/08/2021, I'm seeing the patient for a follow-up. The patient remains intubated on a mechanical ventilator. This patient is known to have COPD and the patient is currently intubated on mechanical ventilator as the patient was found to be unresponsive. He collapsed at home and he was unconscious for a unknown period of time. EMS was brought to the scene and the patient was evaluated. The patient was brought into the emergency room he was quite agitated, he was intubated and placed on a mechanical ventilator. The workup despite the negative including a CAT scan of the brain that showed no acute abnormalities. CAT scan of the abdomen and pelvis using the CTA protocol showed an enlarging abdominal aortic aneurysm currently measuring about 5 cm in size. Nevertheless, there was no evidence of any dissection. The patient is currently on protocol running at 75 mcg/kg per minute. The patient remains on a mechanical ventilator on assist control mode at the rate of 22 with a tidal volume of 400 and FiO2 of 50% with a PEEP of 5. Blood gases showed a pH of 7.32 with a pCO2 of 45 and pO2 of 76. Chest x-ray shows no acute abnormalities. There is adequate expansion of both lungs and ET tube is in good location. Meanwhile, the patient remains in a normal sinus rhythm at the rate of 75. Hour and the patient is on low-dose norepinephrine running at 0.03 mcg/kg per minute. Blood work from today shows a component of non-anion Metabolic acidosis with a sodium level of 136 and a current of 110 and his serum bicarbonate 16. BNP isn't 9 with a creatinine of 0.59. The white cell count is at 18.4 with a hemoglobin of 15.6. The thyroid function test shows a normal free T4, no hypo glycemia, no fever, no other significant issues over the past 24 hours. The patient will be given a sedation holiday today. Note that an EEG was also done and the EEG showed abnormal EEG background with mixed frequency activity and there was evidence of mild generalized cerebral dysfunction consistent with encephalopathy and this could be potentially medication effect. No evidence of any acute seizure activity noted. The carotid Dopplers are also negative. Objective - Vital Signs Vital signs: Vital Signs Temp 97.6 F 12/08/21 12:00 Pulse 114 H 12/08/21 12:00 Resp 29 H 12/08/21 12:00 BP 109/61 12/08/21 12:00 Pulse Ox 90 L 12/08/21 12:00 FiO2 100 12/08/21 12:00 Intake & Output 12/07/21 12/08/21 12/08/21 18:59 06:59 18:59 Intake Total 3056.515 1296.942 591.901 Output Total 760 730 320 Balance 2296.515 566.942 271.901 Weight 89.8 kg Intake: IV 2825 900 450 0.9 NACL 825 900 450 0.9 NACL bolus 2000 Intake, IV Titration 231.515 396.942 141.901 Amount Dexmedetomidine/0.9% NaCl 1.871 (Pmx) 400 mcg In Empty Bag 1 bag @ 0.2 MCG/KG/HR 4.49 mls/hr IV .[id number] [facility] Rx#:[id number] Norepinephrine 4 mg In 75.566 190.053 26.831 Sodium Chloride 0.9% 250 ml @ 0.05 MCG/KG/MIN 12. 961 mls/hr IV .[id number] [facility] Rx#:[id number] Sodium Chloride 0.9% 1, 75 000 ml @ 75 mls/hr IV . [id number] [facility] Rx#:[id number] propofoL 1,000 mg In 80.949 206.889 113.199 Empty Bag 1 bag @ 5 MCG/ KG/MIN 2.041 mls/hr IV . Q24H [facility] Rx#:[id number] Output: Urine 760 730 320 Other: Voiding Method Indwelling Catheter Indwelling Catheter Indwelling Catheter - Exam No acute distress, sedated, with an orally placed endotracheal tube and NG tube. The patient remains on propofol and the patient is calm and comfortable sedated, status post a mechanical ventilator without any agitation Head exam was generally normal. There was no scleral icterus or corneal arcus. Mucous membranes were moist. Neck was supple and without jugular venous distension, thyromegaly, or carotid bruits. Carotids were easily palpable bilaterally. There was no adenopathy. Cardiovascular examination reveals regular rhythm rate. S1-S2 normal. No S3 or S4. No discernible murmur noted. Lungs reveal mostly clear breath sounds. Minimal scattered rhonchi. No wheezes or crackles. Breath sounds equal bilaterally. Abdomen soft bowel sounds are heard. No masses or tenderness. Extremities are intact. No cyanosis clubbing or edema. Skin is without rash or lesion. Neurologic examination , the patient grimaces to deep painful stimulation the patient withdraws to painful stimulation. Positive cough and gag. Positive the reaction. Motor and sensory function cannot be accurately assessed while the patient is on propofol. - Labs CBC & Chem 7: 12/08/21 05:00 12/08/21 05:00 Labs: Abnormal Lab Results - Last 24 Hours (Table) 12/08/21 12/08/21 12/08/21 Range/Units 01:36 03:52 05:00 WBC 18.1 H (3.8-10.6) k/uL RBC 4.28 L (4.30-5.90) m/uL MCV 102.0 H (80.0-100.0) fL ABG pH (7.35-7.45) ABG pO2 (83-108) mmHg Sodium (137-145) mmol/L Chloride (98-107) mmol/L Carbon Dioxide (22-30) mmol/L Creatinine (0.66-1.25) mg/dL Glucose (74-99) mg/dL POC Glucose (mg/dL) 112 H (70-110) mg/dL Calcium (8.4-10.2) mg/dL TSH 0.181 L (0.465-4.680) mIU/L 12/08/21 12/08/21 Range/Units 05:00 05:20 WBC (3.8-10.6) k/uL RBC (4.30-5.90) m/uL MCV (80.0-100.0) fL ABG pH 7.32 L (7.35-7.45) ABG pO2 76 L (83-108) mmHg Sodium 136 L (137-145) mmol/L Chloride 110 H (98-107) mmol/L Carbon Dioxide 16 L (22-30) mmol/L Creatinine 0.59 L (0.66-1.25) mg/dL Glucose 114 H (74-99) mg/dL POC Glucose (mg/dL) (70-110) mg/dL Calcium 8.2 L (8.4-10.2) mg/dL TSH (0.465-4.680) mIU/L Microbiology - Last 24 Hours (Table) 12/07/21 04:00 Gram Stain - Preliminary Sputum Sputum Culture - Preliminary 12/07/21 02:23 Blood Culture - Preliminary Blood No Growth after 24 hours Assessment and Plan Plan: Acute syncope, of unclear etiology, followed by severe agitation and confusion, requiring intubation and mechanical ventilation on December 07. The exact cause is not clear. EEG showing encephalopathy which could be essentially drug induced. No seizure activity has been witnessed. The patient had a negative CAT scan of the brain at time of admission. No neck stiffness. Carotids are within normal limits. Acute hypoxic/hypercapnic respiratory failure, currently intubated on mechanical ventilator History of COPD/asthma. History of ongoing tobacco use with nicotine addiction. History of alcohol use, quantity unknown. The serum alcohol level at the time of admission was negative History of lymphoma, the patient has been in remission Neurologic abdominal aortic aneurysm currently measuring 5 cm in size based on the CT angiogram Previous history of prostate cancer. Questionable hyperammonemia. History of marijuana smoking and aggressive the urine drug screen was essentially negative. Plan We'll give the patient sedation holiday to evaluate his underlying mentation and inability to response to verbal stimuli If unable to wean sedation and the mental status remains inappropriate, the patient may need further workup including another CAT scan of the brain and possibly lumbar puncture. Continue ventilator support Keep the patient bronchodilators Continued IV Solu-Medrol Multiple antibiotic coverage given to this patient for now Initiate enteral feeding for nutritional support Neurology consultation Obtain an echocardiogram May need another CAT scan of the brain and lumbar puncture if no improvement in mental status Wean off the patient's from propofol and use Precedex if needed We'll continue to follow Critically care evaluation that was done more than 30 minutes Time with Patient: Greater than 30
--- NOTE | 2021-12-08 16:58 | XR ---
EXAMINATION TYPE: XR chest 1V portable DATE OF EXAM: 12/08/2021 COMPARISON: Today HISTORY: Line placement TECHNIQUE: Single view FINDINGS: There is left subclavian catheter with tip in the superior vena cava. There is endotracheal tube 5.5 cm from the leo. There is nasogastric tube in the stomach. There is some pulmonary hyper inflation. No heart failure seen. There are chest leads. There is some mild atelectasis right lung ba se. IMPRESSION: Tubing in good position. Mild subsegmental atelectasis. Heart and lungs not changed compared to exam this morning. IMPRESSION:
[2021-12-08 17:52] LABS: Glucose,Whole Blood 104 mg/dL (70-110)
--- NOTE | 2021-12-08 17:58 | P.PCN ---
Date of Procedure: 12/08/21 Preoperative Diagnosis: Altered mental status Postoperative Diagnosis: Altered mental status Procedure(s) Performed: Lumbar puncture Triple-lumen catheter Arterial line Anesthesia: local Surgeon: Charity Shrestha Estimated Blood Loss (ml): 0 Pathology: other Condition: critical Disposition: ICU Operative Findings: . Lumbar puncture Informed consent was obtained. The patient was then placed in the right lateral position with knees drawn to the chest. All persons involved were shielded with hairnets, facemasks, sterile gowns and gloves. The skinof the lower back was thoroughly sponged with chlorhexidine and allowed to dry. With sterile-gloved hands the posteriorsuperior iliac crests were identified at their intersection in the midline and the area was draped with a sterile disposable towel. The skin and subcutaneous tissues were anesthetized with 3 mL of 1% lidocaine. The 3.5- in, 22-ga spinal needle was placed below the L4 spinous process angled toward the umbilicus. The stylet was removed and clear fluid was then seen to flow from the needle. Fluid was then collected in specimen tubes for analysis. The needle was then removed and the area covered with a sterile bandaid. The procedure was completed without any complications. Central line Indication: Hemodynamic monitoring/Intravenous access. A time-out was completed verifying correct patient, procedure, site, positioning, and implant(s) or special equipment if applicable. The patient was placed in a dependent position appropriate for central line placement based on the vein to be cannulated. The patients left shoulder was prepped and draped in sterile fashion. 1% Lidocaine was used to anesthetize the surrounding skin area. A triple lumen 9F Cordis catheter was introduced into the left subclavian vein using Seldinger technique. The catheter was threaded smoothly over the guide wire and appropriate blood return was obtained. Each lumen of the catheter was evacuated of air and flushed with sterile saline. The catheter was then sutured in place to the skin and a sterile dressing applied. Perfusion to the extremity distal to the point of catheter insertion was checked and found to be adequate. The patient tolerated the procedure well and there were no complications. Arterial line Indication: Hemodynamic monitoring. A time-out was completed verifying correct patient, procedure, site, positioning, and implant(s) or special equipment if applicable. Allens test was performed to ensure adequate perfusion. The patients left wrist was prepped and draped in sterile fashion. 1% Lidocaine was used to anesthetize the area. An 18G Arrow arterial line was introduced into the left radial artery. The catheter was threaded over the guide wire and the needle was removed with appropriate pulsatile blood return. Blood loss was minimal. The catheter was then sutured in place to the skin and a sterile dressing applied. Perfusion to the extremity distal to the point of catheter insertion was checked and found to be adequate. The patient tolerated the procedure well and there were no complications.
--- NOTE | 2021-12-08 18:02 | CT ---
EXAMINATION TYPE: CT brain wo con DATE OF EXAM: 12/08/2021 COMPARISON: Yesterday HISTORY: Follow up CT DLP: 1220.4 mGycm Automated exposure control for dose reduction was used. There is cerebral cortical atrophy. There is no mass effect or midline shift. No sign of intracranial hemorrhage. The calvarium is intact. There is minimal hypodensity in the periventricular white matte r. The skull base is intact. IMPRESSION: Mild atrophy and chronic small vessel ischemia. No change.
[2021-12-08 18:29] LABS: Appearance,CSF Clear; CSF Tube Number 3; CSF Tube Volume 2; Nucleated Cells, CSF 1 u/L (0-5); Red Blood Cell,CSF 0 u/L (0-10)
[2021-12-08 18:41] LABS: Glucose,CSF 82 mg/dL (40-70); Total Protein,CSF 86 mg/dL (12-60)
[2021-12-08 23:59] LABS: Glucose,Whole Blood 126 mg/dL (70-110)
--- NOTE | 2021-12-09 00:34 | P.PN ---
Subjective Progress Note Date: 12/08/21 Patient is a 71-year-old male tachycardia [facility] emergency department with altered mental status patient was found on the floor at home and the family brought him here patient is quite a bit agitated and was given at 10 mg dose of Ativan and the morphine after which her his mental status has worsened because of which patient was intubated. Patient although found to have hypercapnic respiratory failure with pCO2 of around 60 and pH of 7.22 patient appears to be a heavy smoker smoker was wheezing on exam, patient is being treated for COPD exacerbation. Patient had elevated ammonia level up to 125 patient does drink alcohol on a regular basis although liver enzymes are within normal. Within a f ew hours this ammonia level has come down to less than 9. Patient was given a dose of lactulose. Patient the ABGs improved now with pCO2 of around 51 and pH of around 7.34. Patient has elevated white cell count. Patient is on assist- control ventilation with tidal volume of 400 FiO2 of 50% PEEP of 5 set up respiratory rate of 22. Patient is breathing over the ventilator. Patient does have history of lymphoma unsure whether this is in remission will have to get the hip that history from the family. Patient is on propofol drip at this time occasionally still getting agitated. CT of the brain and did not show any significant abnormality of the thoracic CT did show 5 cm abdominal aortic an eurysm the size of which increased her from last test which was about 2 years ago from 3.5 cm. There was no evidence of leak or dissection. 12/08/2021 Patient is seen and evaluated in follow-up continues to be in the ICU and continues to be on the mechanical vent with FiO2 of 50% PEEP is 5. Weaning trials of propofol being conducted to assess mentation. Neurology and pulmonary following. Patient is continued on breathing treatments and IV steroids. Chest xray shows no acute process. Patient WBC is elevated possible reactivity and cultures are negative thus far. Patient is afebrile. Possible LP and repeat CT of the brain being discussed. EEG done showing abnormal due to encephalopathy with no seizure activity noted. Patient just weaned off levophed and continued on propofol. 2d echo ordered. Prognosis is guarded. REVIEW OF SYSTEMS: Patient is intubated and sedated Active Medications Acetaminophen (Acetaminophen Suppository 650 Mg Supp) 650 mg RECTAL Q4HR PRN PRN Reason: Fever And/ Or Mild Pain Albuterol/Ipratropium (Ipratropium-Albuterol 3 Ml Neb) 3 ml INHALATION RT-QID [facility] Last Admin: 12/08/21 19:10 Dose: 3 ml Chlorhexidine Gluconate (Chlorhexidine Gluconate 15 Ml Cup) 15 ml MUCOUS MEM BID [facility] Last Admin: 12/08/21 20:31 Dose: 15 ml Enoxaparin Sodium (Enoxaparin 40 Mg/0.4 Ml Syringe) 40 mg SQ DAILY [facility] Last Admin: 12/08/21 08:05 Dose: 40 mg Famotidine (Famotidine 20 Mg/2 Ml Vial) 20 mg IV Q12HR [facility] Last Admin: 12/08/21 20:31 Dose: 20 mg Propofol 1,000 mg/ IV Solution 100 mls @ 2.041 mls/hr IV .Q24H [facility]; Protocol Last Admin: 12/08/21 23:53 Dose: 75 mcg/kg/min, 30.618 mls/hr Sodium Chloride (Saline 0.9%) 1,000 mls @ 20 mls/hr IV .Q24H [facility] Last Admin: 12/08/21 04:22 Dose: 20 mls/hr Norepinephrine Bitartrate 4 mg (/ Sodium Chloride) 254 mls @ 12.961 mls/hr IV .[id number] [facility]; Protocol Last Titration: 12/08/21 23:29 Dose: 0.01 mcg/kg/min, 2.592 mls/hr Dexmedetomidine HCl 400 mcg/ (IV Solution) 100 mls @ 4.49 mls/hr IV .[id number] [facility]; Protocol Last Titration: 12/08/21 14:42 Dose: 0 mcg/kg/hr, 0 mls/hr Methylprednisolone Sodium Succinate (Methylprednisolone Sod Succi 40 Mg/Ml 1 Ml Vial) 40 mg IV Q12HR [facility] Last Admin: 12/08/21 20:31 Dose: 40 mg Miscellaneous Information (Potassium Replacement Protocol 1 Each Misc) 1 each MISCELLANE DAILY PRN; Protocol PRN Reason: Per Protocol Morphine Sulfate (Morphine Sulfate 4 Mg/Ml Syringe) 4 mg IV Q2HR PRN PRN Reason: Pain Scale 8 to 10 Last Admin: 12/08/21 15:32 Dose: 4 mg Multi-Ingred Cream/Lotion/Oil/Oint (Artificial Tears Ointment 3.5 Gm Tube) 1 applic BOTH EYES Q4HR PRN PRN Reason: Dry Eye(s) Naloxone HCl (Naloxone 0.4 Mg/Ml 1 Ml Vial) 0.2 mg IV Q2M PRN PRN Reason: Opioid Reversal Thiamine HCl (Thiamine 100 Mg Tab) 100 mg PO DAILY [facility] Last Admin: 12/08/21 08:05 Dose: 100 mg PHYSICAL EXAMINATION: GENERAL: Intubated sedated on ventilatory support as mentioned above HEENT: Pupils are round and equally reacting to light. EOMI. No scleral icterus. No conjunctival pallor. Normocephalic, atraumatic. No pharyngeal erythema. No thyromegaly. CARDIOVASCULAR: S1 and S2 present. No murmurs, rubs, or gallops. PULMONARY: mild Expiratory wheezing on exam, diminished breath sounds bilaterally with some scattered rhonchi noted ABDOMEN: Soft, nontender, nondistended, normoactive bowel sounds. No palpable organomegaly. MUSCULOSKELETAL: No joint swelling or deformity. EXTREMITIES: No cyanosis, clubbing, or pedal edema. NEUROLOGICAL: Sedated, unable to completely assess SKIN: No rashes. Assessment: -Altered mental status etiology is not clear may be related to marijuana use and may be secondary to hypercapnic respiratory failure as well. Possibly toxic/ metabolic encephalopathy. -hyperammonemia, improved. suspicion for hepatic encephalopathy is low -Respiratory acidosis and acute respiratory failure, hypercapnic respiratory failure acute secondary to COPD exacerbation patient will be started on systemic steroids -History of lymphoma, in remission -Leukocytosis which is reactive -Acute COPD exacerbation -Nicotine use -Possible syncope, patient is undergoing workup for syncope as well as seizures, EEG abnormal suggestive of possible toxic encephalopathy with no seizure activity noted -DVT prophylaxis: Lovenox -Full code Plan: Recommend to continue with current medications and ICU monitoring with pulmonary and neurology following Chest xray shows no acute cardiopulmonary process and continues on mechanical ventilation Recommend IV steroids and continued breathing inhalational treatments. Weaning trials being done to assess mentation with possible LP and repeat CT brain being discussed Currently weaned off of levophed and continues on propofol WBC is elevated. possibly reactive and recommend repeat labs and close monitoring Prognosis is guarded The impression and plan of care has been dictated by Alize Orta, Nurse Practitioner as directed. Dr. Allison MD I have performed a history and examination and MDM of this patient, discussed the same with the dictator, and agree with the dictator's assessment and plan as written ,documented as a scribe. Based on total visit time, I have performed more than 50% of the visit. Objective - Vital Signs Vital signs: Vital Signs Temp 97.6 F 12/08/21 08:00 Pulse 73 12/08/21 09:00 Resp 19 12/08/21 09:00 BP 95/59 12/08/21 09:00 Pulse Ox 98 12/08/21 09:00 FiO2 50 12/08/21 09:00 Intake & Output 12/07/21 12/08/21 12/08/21 18:59 06:59 18:59 Intake Total 3056.515 1296.942 343.794 Output Total 760 730 145 Balance 2296.515 566.942 198.794 Weight 89.8 kg Intake: IV 2825 900 225 0.9 NACL 825 900 225 0.9 NACL bolus 2000 Intake, IV Titration 231.515 396.942 118.794 Amount Norepinephrine 4 mg In 75.566 190.053 18.794 Sodium Chloride 0.9% 250 ml @ 0.05 MCG/KG/MIN 12. 961 mls/hr IV .[id number] [facility] Rx#:[id number] Sodium Chloride 0.9% 1, 75 000 ml @ 75 mls/hr IV . [id number] [facility] Rx#:[id number] propofoL 1,000 mg In 80.949 206.889 100 Empty Bag 1 bag @ 5 MCG/ KG/MIN 2.041 mls/hr IV . Q24H [facility] Rx#:[id number] Output: Urine 760 730 145 Other: Voiding Method Indwelling Catheter Indwelling Catheter Indwelling Catheter - Labs CBC & Chem 7: 12/08/21 05:00 12/08/21 05:00 Labs: Abnormal Lab Results - Last 24 Hours (Table) 12/08/21 12/08/21 12/08/21 Range/Units 01:36 03:52 05:00 WBC 18.1 H (3.8-10.6) k/uL RBC 4.28 L (4.30-5.90) m/uL MCV 102.0 H (80.0-100.0) fL ABG pH (7.35-7.45) ABG pO2 (83-108) mmHg Sodium (137-145) mmol/L Chloride (98-107) mmol/L Carbon Dioxide (22-30) mmol/L Creatinine (0.66-1.25) mg/dL Glucose (74-99) mg/dL POC Glucose (mg/dL) 112 H (70-110) mg/dL Calcium (8.4-10.2) mg/dL TSH 0.181 L (0.465-4.680) mIU/L 12/08/21 12/08/21 Range/Units 05:00 05:20 WBC (3.8-10.6) k/uL RBC (4.30-5.90) m/uL MCV (80.0-100.0) fL ABG pH 7.32 L (7.35-7.45) ABG pO2 76 L (83-108) mmHg Sodium 136 L (137-145) mmol/L Chloride 110 H (98-107) mmol/L Carbon Dioxide 16 L (22-30) mmol/L Creatinine 0.59 L (0.66-1.25) mg/dL Glucose 114 H (74-99) mg/dL POC Glucose (mg/dL) (70-110) mg/dL Calcium 8.2 L (8.4-10.2) mg/dL TSH (0.465-4.680) mIU/L Microbiology - Last 24 Hours (Table) 12/07/21 02:23 Blood Culture - Preliminary Blood No Growth after 24 hours 12/07/21 04:00 Sputum Culture - Preliminary Sputum
[2021-12-09 05:21] LABS: Glucose,Whole Blood 146 mg/dL (70-110)
[2021-12-09 05:41] LABS: Basophils % (A) 0 %; Eosinophils % (A) 0 %; HCT 42.1 % (39.0-53.0); HGB 13.6 gm/dL (13.0-17.5); Lymphocytes # (A) 0.6 k/uL (1.0-4.8); Lymphocytes % (A) 4 %; MCH 32.2 pg (25.0-35.0); MCHC 32.2 g/dL (31.0-37.0); MCV 99.9 fL (80.0-100.0); Mean Platelet Volume 7.9; Monocytes # (A) 0.8 k/uL (0-1.0); Monocytes % (A) 5 %; Neutrophils # (A) 15.9 k/uL (1.3-7.7); Neutrophils % (A) 91 %; Platelet Count 388 k/uL (150-450); RBC 4.22 m/uL (4.30-5.90); RDW 13.9 % (11.5-15.5); WBC 17.5 k/uL (3.8-10.6)
[2021-12-09 06:09] LABS: ALT 11 U/L (4-49); AST 20 U/L (17-59); African American GFR (CKD) >90 (>60 ml/min/1.73 sqM); Albumin 2.8 g/dL (3.5-5.0); Alkaline Phosphatase 61 U/L (38-126); Anion Gap 8 mmol/L; Blood Urea Nitrogen 11 mg/dL (9-20); Carbon Dioxide 24 mmol/L (22-30); Chloride 106 mmol/L (98-107); Glucose 141 mg/dL (74-99); Non-African American GFR(CKD) >90 (>60 ml/min/1.73 sqM); Potassium 4.6 mmol/L (3.5-5.1); Sodium 138 mmol/L (137-145); Total Bilirubin 0.4 mg/dL (0.2-1.3); Total Protein 5.3 g/dL (6.3-8.2)
[2021-12-09 06:18] LABS: ABG Base Excess 1.4 mmol/L; ABG HCO3 27 mmol/L (21-25); ABG Hematocrit 41 % (34.0-46.0); ABG Oxygen Saturation 99.7 % (94-97); ABG PCO2 47 mmHg (35-45); ABG PH 7.37 (7.35-7.45); ABG PO2 179 mmHg (83-108); ABG TCO2 28 mmol/L (19-24)
[2021-12-09 06:34] LABS: Allen Test Performed? No
[2021-12-09] MEDS: SODIUM CHLORIDE 0.9% 1,000 ML IV SCH ×2 (07:04→17:30)
[2021-12-09] MEDS: THIAMINE 100 MG TAB PO SCH (07:54)
[2021-12-09] MEDS: methylPREDNISolone SOD SUCCI 40 MG/ML 1 ML VIAL IV SCH (07:54)
[2021-12-09] MEDS: CHLORHEXIDINE GLUCONATE 15 ML CUP MUCOUS MEM SCH (07:54)
[2021-12-09] MEDS: FAMOTIDINE 20 MG/2 ML VIAL IV SCH ×2 (07:54→20:22)
[2021-12-09] MEDS: ENOXAPARIN 40 MG/0.4 ML SYRINGE SQ SCH (07:54)
--- NOTE | 2021-12-09 07:58 | XR ---
EXAMINATION TYPE: XR chest 1V portable DATE OF EXAM: 12/09/2021 5:43 AM COMPARISON: Chest radiographs from 12/08/2021 TECHNIQUE: XR chest 1V portable Frontal view of the chest. CLINICAL INDICATION:Male, 71 years old with history of Tube placement; FINDINGS: Lungs/Pleura: No pneumothorax or pleural effusion. Bibasilar atelectasis. Flattening of the diaphragm s with increased lucency of the lungs. Pulmonary vascularity: Unremarkable. Heart/mediastinum: Cardiomediastinal silhouette is unremarkable. Musculoskeletal: No acute osseous pathology. Lines/Tubes: Endotracheal tube with distal tip 6.1 cm above the leo Nasogastric tube with its distal tip and side-port projecting under the diaphragm. Left-sided PICC with distal tip at the mid SVC. IMPRESSION: 1. Stable support lines and tubes. 2. Bibasilar atelectasis. 3. COPD changes.
--- NOTE | 2021-12-09 08:04 | P.PN ---
Subjective Progress Note Date: 12/08/21 Patient was seen for a follow-up. Patient intubated. He still gets very agitated with sedation holiday. Currently on maximum dose of propofol. Patient at present is sedated. Objective - Vital Signs Vital signs: Vital Signs Temp 97.6 F 12/08/21 12:00 Pulse 85 12/08/21 15:10 Resp 23 12/08/21 15:00 BP 93/57 12/08/21 15:00 Pulse Ox 97 12/08/21 15:00 FiO2 80 12/08/21 15:00 Intake & Output 12/07/21 12/08/21 12/08/21 18:59 06:59 18:59 Intake Total 3056.515 1296.942 932.589 Output Total 760 730 495 Balance 2296.515 566.942 437.589 Weight 89.8 kg 89.8 kg Intake: IV 2825 900 675 0.9 NACL 825 900 675 0.9 NACL bolus 2000 Intake, IV Titration 231.515 396.942 257.589 Amount Dexmedetomidine/0.9% NaCl 31.355 (Pmx) 400 mcg In Empty Bag 1 bag @ 0.2 MCG/KG/HR 4.49 mls/hr IV .[id number] [facility] Rx#:[id number] Norepinephrine 4 mg In 75.566 190.053 26.831 Sodium Chloride 0.9% 250 ml @ 0.05 MCG/KG/MIN 12. 961 mls/hr IV .[id number] [facility] Rx#:[id number] Sodium Chloride 0.9% 1, 75 000 ml @ 75 mls/hr IV . [id number] [facility] Rx#:[id number] propofoL 1,000 mg In 80.949 206.889 199.403 Empty Bag 1 bag @ 5 MCG/ KG/MIN 2.041 mls/hr IV . Q24H [facility] Rx#:[id number] Output: Urine 760 730 495 Other: Voiding Method Indwelling Catheter Indwelling Catheter Indwelling Catheter - Exam Patient is intubated, sedated on propofol around 70 mcg/mg/m. Pupils are equal, round and reacting. Oculocephalics are absent. Corneals present. Patient is breathing over the ventilator. He does have cough and gag. Patient not r esponding to painful stimuli due to being sedated heavily. Reflexes are diminished and plantars are possibly upgoing bilaterally. - Labs CBC & Chem 7: 12/09/21 05:20 12/09/21 05:20 Labs: Abnormal Lab Results - Last 24 Hours (Table) 12/08/21 12/08/21 12/08/21 Range/Units 01:36 03:52 05:00 WBC 18.1 H (3.8-10.6) k/uL RBC 4.28 L (4.30-5.90) m/uL MCV 102.0 H (80.0-100.0) fL ABG pH (7.35-7.45) ABG pO2 (83-108) mmHg Sodium (137-145) mmol/L Chloride (98-107) mmol/L Carbon Dioxide (22-30) mmol/L Creatinine (0.66-1.25) mg/dL Glucose (74-99) mg/dL POC Glucose (mg/dL) 112 H (70-110) mg/dL Calcium (8.4-10.2) mg/dL TSH 0.181 L (0.465-4.680) mIU/L 12/08/21 12/08/21 Range/Units 05:00 05:20 WBC (3.8-10.6) k/uL RBC (4.30-5.90) m/uL MCV (80.0-100.0) fL ABG pH 7.32 L (7.35-7.45) ABG pO2 76 L (83-108) mmHg Sodium 136 L (137-145) mmol/L Chloride 110 H (98-107) mmol/L Carbon Dioxide 16 L (22-30) mmol/L Creatinine 0.59 L (0.66-1.25) mg/dL Glucose 114 H (74-99) mg/dL POC Glucose (mg/dL) (70-110) mg/dL Calcium 8.2 L (8.4-10.2) mg/dL TSH (0.465-4.680) mIU/L Microbiology - Last 24 Hours (Table) 12/07/21 04:00 Gram Stain - Preliminary Sputum Sputum Culture - Preliminary 12/07/21 02:23 Blood Culture - Preliminary Blood No Growth after 24 hours Assessment and Plan Assessment: * Syncopal spell followed by severe agitation and confusion. Rule out ?postictal state. * Altered mental status, possible hepatic encephalopathy. Patient's ammonia was highly elevated 167. However repeat ammonia level is < 9 (after one dose of lactulose). * Patient has normal temperature, but has mild leukocytosis. Encephalitis in the differential, (less likely). Likewise CVA less likely. Limited examination nonfocal. * Status post intubation, on mechanical ventilation. Possible partly due to medications. * Macrocytosis, with remote history of alcoholism * History of lymphoma in remission. * History of prostate cancer * COPD * Thoracic aortic aneurysm Plan: * Patient clinically not any better. Repeat CT head performed today showed mild atrophy and chronic small vessel ischemic change. I personally review CT head, agree with the findings. * EEG 12/07/2021 revealed background disorganization with mixed frequency activity, suggestive of mild encephalopathy or medication effect. No epileptiform activity was seen. * Carotid Doppler revealed limited exam, with less than 50% stenosis of bilateral ICA. * Patient started on lactulose. Repeat ammonia level is normal. * Thiamine 100 mg daily * Patient's white cells has gone up. Lumbar puncture to rule out encephalitis. * DVT prophylaxis: Patient on Lovenox 40 mg subcu daily. * Repeat EEG in the morning. * B12 537, folate 9.6, TSH is decreased 0.181, free T4 normal 1.26. IM to address abnormal thyroid functions. CSF showed 1 WBC, 0 RBC, glucose 82, protein 86/60. No obvious signs of intracranial infection.
[2021-12-09] MEDS: IPRATROPIUM-ALBUTEROL 3 ML NEB INHALATION SCH ×4 (08:48→19:13)
--- NOTE | 2021-12-09 09:48 | P.PN ---
Subjective Progress Note Date: 12/09/21 On 12/08/2021, I'm seeing the patient for a follow-up. The patient remains intubated on a mechanical ventilator. This patient is known to have COPD and the patient is currently intubated on mechanical ventilator as the patient was found to be unresponsive. He collapsed at home and he was unconscious for a unknown period of time. EMS was brought to the scene and the patient was evaluated. The patient was brought into the emergency room he was quite agitated, he was intubated and placed on a mechanical ventilator. The workup despite the negative including a CAT scan of the brain that showed no acute abnormalities. CAT scan of the abdomen and pelvis using the CTA protocol showed an enlarging abdominal aortic aneurysm currently measuring about 5 cm in size. Nevertheless, there was no evidence of any dissection. The patient is currently on protocol running at 75 mcg/kg per minute. The patient remains on a mechanical ventilator on assist control mode at the rate of 22 with a tidal volume of 400 and FiO2 of 50% with a PEEP of 5. Blood gases showed a pH of 7.32 with a pCO2 of 45 and pO2 of 76. Chest x-ray shows no acute abnormalities. There is adequate expansion of both lungs and ET tube is in good location. Meanwhile, the patient remains in a normal sinus rhythm at the rate of 75. Hour and the patient is on low-dose norepinephrine running at 0.03 mcg/kg per minute. Blood work from today shows a component of non-anion Metabolic acidosis with a sodium level of 136 and a current of 110 and his serum bicarbonate 16. BNP isn't 9 with a creatinine of 0.59. The white cell count is at 18.4 with a hemoglobin of 15.6. The thyroid function test shows a normal free T4, no hypo glycemia, no fever, no other significant issues over the past 24 hours. The patient will be given a sedation holiday today. Note that an EEG was also done and the EEG showed abnormal EEG background with mixed frequency activity and there was evidence of mild generalized cerebral dysfunction consistent with encephalopathy and this could be potentially medication effect. No evidence of any acute seizure activity noted. The carotid Dopplers are also negative. 12/09/2021, I'm seeing the patient for a follow-up. The patient failed a sedation holiday yesterday because of increased agitation, asymmetry mechanical ventilator, hypertensive reaction marked tachypnea and hypotension.based on that , the sedation holiday was discontinued and the patient was given a CAT scan of the brain that showed cerebral atrophy without any acute abnormalities. This was a repeat CAT scan that was done over 24 hours. Following that, the patient was given a lumbar puncture. The cell count and ALP was extremely low and the protein was elevated at 86 and the patient had a normal glucose. Gram stain is still negative. Culture is still pending for now. HSV by PCR was also sent and the results are still pending for now. Case was discussed with neurology. There are plans to repeat EEG today. Meanwhile, I would suggest giving the patient another sedation holiday and reevaluate his mental status. The patient remains on a mechanical ventilator for now. He is an assist-control mode at a rate of 60 with a tidal volume of 600 and FiO2 of 50% with a PEEP of 5. Red asynchronous with a mechanical ventilator. Chest x-ray shows no acute abnormalities and ET tube is in a good location. PH is at 7.37 with a pCO2 of 47 and a pO2 of 179. No significant orotracheal secretions for now. The white cell count 17.4 with hemoglobin 13.6 and a platelet count of 388. The white cell count remains elevated and comparable compared to yesterday. Meanwhile, the electrolytes from today are all stable in the creatinine is also stable at 0.6. The patient remains on IV fluids of normal saline at the rate of 75 and propofol is running at 70 mcg/kg per minute. Objective - Vital Signs Vital signs: Vital Signs Temp 98.1 F 12/09/21 08:00 Pulse 67 12/09/21 09:00 Resp 16 12/09/21 09:00 BP 115/66 12/09/21 07:00 Pulse Ox 93 L 12/09/21 09:00 FiO2 50 12/09/21 09:00 Intake & Output 12/08/21 12/09/21 12/09/21 18:59 06:59 18:59 Intake Total 5714.075 5501.681 180.047 Output Total 745 1965 225 Balance 512.589 -520.319 -44.953 Weight 89.8 kg 87.7 kg Intake: IV 900 975 150 0.9 NACL 900 975 150 Intake, IV Titration 357.589 409.681 20.047 Amount Dexmedetomidine/0.9% NaCl 31.355 (Pmx) 400 mcg In Empty Bag 1 bag @ 0.2 MCG/KG/HR 4.49 mls/hr IV .[id number] [facility] Rx#:[id number] Norepinephrine 4 mg In 26.831 45.364 20.047 Sodium Chloride 0.9% 250 ml @ 0.05 MCG/KG/MIN 12. 961 mls/hr IV .[id number] [facility] Rx#:[id number] propofoL 1,000 mg In 299.403 364.317 Empty Bag 1 bag @ 5 MCG/ KG/MIN 2.041 mls/hr IV . Q24H [facility] Rx#:[id number] Oral 60 Tube Feeding 10 Output: Gastric Drainage 200 Urine 745 1765 225 Other: Voiding Method Indwelling Catheter Indwelling Catheter Indwelling Catheter ABP, PAP, CO, CI - Last Documented Arterial Blood Pressure 118/54 - Exam No acute distress, sedated, with an orally placed endotracheal tube and NG tube. The patient remains on propofol and the patient is calm and comfortable sedated, status post a mechanical ventilator without any agitation Head exam was generally normal. There was no scleral icterus or corneal arcus. Mucous membranes were moist. Neck was supple and without jugular venous distension, thyromegaly, or carotid bruits. Carotids were easily palpable bilaterally. There was no adenopathy. Cardiovascular examination reveals regular rhythm rate. S1-S2 normal. No S3 or S4. No discernible murmur noted. Lungs reveal mostly clear breath sounds. Minimal scattered rhonchi. No wheezes or crackles. Breath sounds equal bilaterally. Abdomen soft bowel sounds are heard. No masses or tenderness. Extremities are intact. No cyanosis clubbing or edema. Skin is without rash or lesion. Neurologic examination , the patient grimaces to deep painful stimulation the patient withdraws to painful stimulation. Positive cough and gag. Positive the reaction. Motor and sensory function cannot be accurately assessed while the patient is on propofol. - Labs CBC & Chem 7: 12/09/21 05:20 12/09/21 05:20 Labs: Abnormal Lab Results - Last 24 Hours (Table) 12/08/21 12/08/21 12/09/21 Range/Units 16:45 23:58 05:19 WBC (3.8-10.6) k/uL RBC (4.30-5.90) m/uL Neutrophils # (1.3-7.7) k/uL Lymphocytes # (1.0-4.8) k/uL ABG pCO2 (35-45) mmHg ABG pO2 (83-108) mmHg ABG HCO3 (21-25) mmol/L ABG Total CO2 (19-24) mmol/L ABG O2 Saturation (94-97) % Creatinine (0.66-1.25) mg/dL Glucose (74-99) mg/dL POC Glucose (mg/dL) 126 H 146 H (70-110) mg/dL Calcium (8.4-10.2) mg/dL Total Protein (6.3-8.2) g/dL Albumin (3.5-5.0) g/dL CSF Glucose 82 H (40-70) mg/dL CSF Total Protein 86 H (12-60) mg/dL 12/09/21 12/09/21 12/09/21 Range/Units 05:20 05:20 06:14 WBC 17.5 H (3.8-10.6) k/uL RBC 4.22 L (4.30-5.90) m/uL Neutrophils # 15.9 H (1.3-7.7) k/uL Lymphocytes # 0.6 L (1.0-4.8) k/uL ABG pCO2 47 H (35-45) mmHg ABG pO2 179 H (83-108) mmHg ABG HCO3 27 H (21-25) mmol/L ABG Total CO2 28 H (19-24) mmol/L ABG O2 Saturation 99.7 H (94-97) % Creatinine 0.61 L (0.66-1.25) mg/dL Glucose 141 H (74-99) mg/dL POC Glucose (mg/dL) (70-110) mg/dL Calcium 8.0 L (8.4-10.2) mg/dL Total Protein 5.3 L (6.3-8.2) g/dL Albumin 2.8 L (3.5-5.0) g/dL CSF Glucose (40-70) mg/dL CSF Total Protein (12-60) mg/dL Microbiology - Last 24 Hours (Table) 12/07/21 04:00 Gram Stain - Final Sputum Sputum Culture - Final 12/08/21 16:45 CSF Gram Stain - Preliminary Cerebral Spinal Fluid CSF Culture - Preliminary 12/07/21 02:23 Blood Culture - Preliminary Blood No Growth after 48 hours Assessment and Plan Plan: Acute syncope, of unclear etiology, followed by severe agitation and confusion, requiring intubation and mechanical ventilation on December 07. The exact cause is not clear. EEG showing encephalopathy which could be essentially drug induced. No seizure activity has been witnessed. The patient had a negative CAT scan of the brain at time of admission. No neck stiffness. Carotids are within normal limits.a repeat CAT scan of the brain was done within 24 hours and the CAT scan showed cerebral atrophy without any acute abnormalities. Lumbar puncture shows some mild elevation in the CSF protein otherwise negative. We'll give the patient another sedation holiday. Repeat EEG is pending. Neurologist on the case. Acute hypoxic/hypercapnic respiratory failure, currently intubated on mechanical ventilator, stable acid-base status is stable on a mechanical ventilator. The History of COPD/asthma. History of ongoing tobacco use with nicotine addiction. History of alcohol use, quantity unknown. The serum alcohol level at the time of admission was negative History of lymphoma, the patient has been in remission Neurologic abdominal aortic aneurysm currently measuring 5 cm in size based on the CT angiogram Previous history of prostate cancer. Questionable hyperammonemia. History of marijuana smoking and aggressive the urine drug screen was essentially negative. Plan give the patient on the sedation holiday EEG today We'll discuss the findings of the lumbar puncture with neurology Awaiting HSV by PCR meanwhile, this patient with IV acyclovir We'll give the patient sedation holiday to evaluate his underlying mentation and inability to response to verbal stimuli Continue ventilator support Keep the patient bronchodilators stop the IV Solu-Medrol Initiate enteral feeding for nutritional supportmy especially is unable to wean today Neurology consultation Obtain an echocardiogramand this was completed yesterday and the results are still pending from today We'll continue to follow Critically care evaluation that was done more than 30 minutes Time with Patient: Greater than 30
[2021-12-09] MEDS: ACYCLOVIR SODIUM 800 MG in SODIUM CHLORIDE 0.9% 250 ML IVPB SCH ×2 (10:29→18:52)
--- NOTE | 2021-12-09 12:13 | CA ---
Transthoracic Echo Report Name: Walter De Dios Age: 71 Gender: M : 1950 Exam Date: 12/08/2021 13:26 Exam Location: [place] [facility] Ht (in): 71 Wt (lb): 197 Ordering Physician: Angelita Valle Attending/Referring Phys: Hunter Trapper Viola Godfrey RDCS Procedure CPT: Indications: respiratory arrest Cardiac Hx: Technical Quality: Fair Contrast 1: Total Dose (mL): Contrast 2: Total Dose (mL): MEASUREMENTS (Male / Female) Normal Values 2D ECHO LV Diastolic Diameter PLAX 3.2 cm 4.2 - 5.9 / 3.9 - 5.3 cm LV Systolic Diameter PLAX 1.6 cm IVS Diastolic Thickness 1.2 cm 0.6 - 1.0 / 0.6 - 0.9 cm LVPW Diastolic Thickness 1.3 cm 0.6 - 1.0 / 0.6 - 0.9 cm LV Relative Wall Thickness 0.8 RV Internal Dim ED PLAX 1.8 cm M-MODE Aortic Root Diameter MM 4.0 cm LA Systolic Diameter MM 2.8 cm LA Ao Ratio MM 0.7 AV Cusp Separation MM 1.8 cm DOPPLER AV Peak Velocity 154.3 cm/s AV Peak Gradient 9.5 mmHg MR Peak Velocity 190.5 cm/s MR Peak Gradient 14.5 mmHg TR Peak Velocity 126.7 cm/s TR Peak Gradient 6.4 mmHg Right Ventricular Systolic Press 11.4 mmHg FINDINGS Left Ventricle Mildly increased septal wall thickness. Left ventricular cavity size normal. Left ventricular ejection fraction is estimated at 60 %. Right Ventricle Right ventricle not well visualized. Right Atrium Right atrium not well visualized. Left Atrium Normal left atrial size. Mitral Valve Mitral valve thickened. Mild mitral regurgitation. Aortic Valve Focal thickening of the aortic valve cusps. Tricuspid Valve Structurally normal tricuspid valve. Mild tricuspid regurgitation. Pulmonic Valve Pulmonic valve not well visualized. Pericardium No pericardial effusion. Aorta Aortic root and proximal ascending aorta not well visualized. CONCLUSIONS Normal left ventricular EF 60% Mild tricuspid regurgitation Mild mitral regurgitation No pericardial effusion Previewed by: Dr. Jason Taylor DO (Electronically Signed) Final Date: 09 December 2021 12:12
[2021-12-09] MEDS: DEXMEDETOMIDINE/0.9% NACL(PMX) 400 MCG in EMPTY BAG 1 BAG IV SCH (14:53)
[2021-12-09] MEDS: NOREPINEPHRINE 4 MG in SODIUM CHLORIDE 0.9% 250 ML IV SCH (14:53)
--- NOTE | 2021-12-09 15:16 | P.PN ---
Subjective Progress Note Date: 12/09/21 Patient is a 71-year-old male tachycardia [facility] emergency department with altered mental status patient was found on the floor at home and the family brought him here patient is quite a bit agitated and was given at 10 mg dose of Ativan and the morphine after which her his mental status has worsened because of which patient was intubated. Patient although found to have hypercapnic respiratory failure with pCO2 of around 60 and pH of 7.22 patient appears to be a heavy smoker smoker was wheezing on exam, patient is being treated for COPD exacerbation. Patient had elevated ammonia level up to 125 patient does drink alcohol on a regular basis although liver enzymes are within normal. Within a f ew hours this ammonia level has come down to less than 9. Patient was given a dose of lactulose. Patient the ABGs improved now with pCO2 of around 51 and pH of around 7.34. Patient has elevated white cell count. Patient is on assist- control ventilation with tidal volume of 400 FiO2 of 50% PEEP of 5 set up respiratory rate of 22. Patient is breathing over the ventilator. Patient does have history of lymphoma unsure whether this is in remission will have to get the hip that history from the family. Patient is on propofol drip at this time occasionally still getting agitated. CT of the brain and did not show any significant abnormality of the thoracic CT did show 5 cm abdominal aortic an eurysm the size of which increased her from last test which was about 2 years ago from 3.5 cm. There was no evidence of leak or dissection. 12/08/2021 Patient is seen and evaluated in follow-up continues to be in the ICU and continues to be on the mechanical vent with FiO2 of 50% PEEP is 5. Weaning trials of propofol being conducted to assess mentation. Neurology and pulmonary following. Patient is continued on breathing treatments and IV steroids. Chest xray shows no acute process. Patient WBC is elevated possible reactivity and cultures are negative thus far. Patient is afebrile. Possible LP and repeat CT of the brain being discussed. EEG done showing abnormal due to encephalopathy with no seizure activity noted. Patient just weaned off levophed and continued on propofol. 2d echo ordered. Prognosis is guarded. 12/09/2021 Patient is seen this morning and continues to be in the ICU on mechanical vent with an FiO2 of 50% and PEEP is 5. Attempted weaning trials were unsuccessful y esterday as patient becomes recently agitated and hypertensive and is continued on propofol. Patient also requiring low-dose Levophed. LP was done yesterday with an elevation in protein and cultures are pending. Patient also had repeat CT of the brain yesterday which showed mild atrophy and chronic small vessel ischemia with no changes. Neurology is following planning on repeat EEG. WBC continues to be elevated although trending down at 17.5 other labs reviewed within normal limits. Chest x-ray this morning shows stable findings of COPD with no significant change from previous. Awaiting HSV results and patient is maintained on IV acyclovir and will continue at this time. Patient is afebrile and being evaluated for possible weaning trials again today with possible extubation. Prognosis remains guarded. Patient is continued on DuoNeb treatments and IV steroids have been discontinued. REVIEW OF SYSTEMS: Patient is intubated and sedated Active Medications Acetaminophen (Acetaminophen Suppository 650 Mg Supp) 650 mg RECTAL Q4HR PRN PRN Reason: Fever And/ Or Mild Pain Albuterol/Ipratropium (Ipratropium-Albuterol 3 Ml Neb) 3 ml INHALATION RT-QID [facility] Last Admin: 12/09/21 08:48 Dose: 3 ml Chlorhexidine Gluconate (Chlorhexidine Gluconate 15 Ml Cup) 15 ml MUCOUS MEM BID [facility] Last Admin: 12/09/21 07:54 Dose: 15 ml Enoxaparin Sodium (Enoxaparin 40 Mg/0.4 Ml Syringe) 40 mg SQ DAILY [facility] Last Admin: 12/09/21 07:54 Dose: 40 mg Famotidine (Famotidine 20 Mg/2 Ml Vial) 20 mg IV Q12HR [facility] Last Admin: 12/09/21 07:54 Dose: 20 mg Propofol 1,000 mg/ IV Solution 100 mls @ 2.041 mls/hr IV .Q24H [facility]; Protocol Last Admin: 12/09/21 03:26 Dose: 75 mcg/kg/min, 30.618 mls/hr Sodium Chloride (Saline 0.9%) 1,000 mls @ 20 mls/hr IV .Q24H [facility] Last Admin: 12/09/21 07:04 Dose: 20 mls/hr Norepinephrine Bitartrate 4 mg (/ Sodium Chloride) 254 mls @ 12.961 mls/hr IV .[id number] [facility]; Protocol Last Titration: 12/09/21 08:12 Dose: 0.02 mcg/kg/min, 5.185 mls/hr Dexmedetomidine HCl 400 mcg/ (IV Solution) 100 mls @ 4.49 mls/hr IV .[id number] [facility]; Protocol Last Titration: 12/08/21 14:42 Dose: 0 mcg/kg/hr, 0 mls/hr Methylprednisolone Sodium Succinate (Methylprednisolone Sod Succi 40 Mg/Ml 1 Ml Vial) 40 mg IV Q12HR [facility] Last Admin: 12/09/21 07:54 Dose: 40 mg Miscellaneous Information (Potassium Replacement Protocol 1 Each Misc) 1 each MISCELLANE DAILY PRN; Protocol PRN Reason: Per Protocol Morphine Sulfate (Morphine Sulfate 4 Mg/Ml Syringe) 4 mg IV Q2HR PRN PRN Reason: Pain Scale 8 to 10 Last Admin: 12/08/21 15:32 Dose: 4 mg Multi-Ingred Cream/Lotion/Oil/Oint (Artificial Tears Ointment 3.5 Gm Tube) 1 applic BOTH EYES Q4HR PRN PRN Reason: Dry Eye(s) Naloxone HCl (Naloxone 0.4 Mg/Ml 1 Ml Vial) 0.2 mg IV Q2M PRN PRN Reason: Opioid Reversal Thiamine HCl (Thiamine 100 Mg Tab) 100 mg PO DAILY [facility] Last Admin: 12/09/21 07:54 Dose: 100 mg PHYSICAL EXAMINATION: GENERAL: Intubated sedated on ventilatory support as mentioned above with weaning trials being conducted. HEENT: Pupils are round and equally reacting to light. EOMI. No scleral icterus. No conjunctival pallor. Normocephalic, atraumatic. No pharyngeal erythema. No thyromegaly. CARDIOVASCULAR: S1 and S2 present. No murmurs, rubs, or gallops. PULMONARY: mild Expiratory wheezing on exam, diminished breath sounds bilaterally with some scattered rhonchi noted ABDOMEN: Soft, nontender, nondistended, normoactive bowel sounds. No palpable organomegaly. MUSCULOSKELETAL: No joint swelling or deformity. EXTREMITIES: No cyanosis, clubbing, or pedal edema. NEUROLOGICAL: Sedated, unable to completely assess SKIN: No rashes. Assessment: -Altered mental status etiology is not clear may be related to marijuana use and may be secondary to hypercapnic respiratory failure as well. Possibly toxic/ metabolic encephalopathy. -hyperammonemia, improved. suspicion for hepatic encephalopathy is low -Respiratory acidosis and acute respiratory failure, hypercapnic respiratory failure acute secondary to COPD exacerbation patient will be started on systemic steroids -History of lymphoma, in remission -Leukocytosis which is reactive -Acute COPD exacerbation -Nicotine use -Possible syncope, patient is undergoing workup for syncope as well as s eizures, EEG abnormal suggestive of possible toxic encephalopathy with no seizure activity noted -DVT prophylaxis: Lovenox -Full code Plan: Recommend to continue with current medications and ICU monitoring with pulmonary and neurology following Chest xray shows no acute cardiopulmonary process and continues on mechanical ventilation, weaning trials being continued with possible extubation later today Recommend continued breathing inhalational treatments and IV steroids have been discontinued Patient underwent LP and repeat CT brain an elevated protein and cultures are pending and repeat CT of the brain showing no acute abnormalities Currently weaned off of levophed and continues on propofol, with weaning trials and possible extubation later WBC is elevated. possibly reactive and recommend repeat labs and close monitoring Prognosis is guarded The impression and plan of care has been dictated by Alize Orta, Nurse Practitioner as directed. Dr. Allison MD I have performed a history and examination and MDM of this patient, discussed the same with the dictator, and agree with the dictator's assessment and plan as written ,documented as a scribe. Based on total visit time, I have performed more than 50% of the visit. Objective - Vital Signs Vital signs: Vital Signs Temp 98.1 F 12/09/21 08:00 Pulse 64 12/09/21 08:55 Resp 16 12/09/21 08:00 BP 115/66 12/09/21 07:00 Pulse Ox 93 L 12/09/21 08:00 FiO2 50 12/09/21 08:00 Intake & Output 12/08/21 12/09/21 12/09/21 18:59 06:59 18:59 Intake Total 2822.483 7961.681 100.035 Output Total 745 1965 150 Balance 512.589 -620.319 -49.965 Weight 89.8 kg 87.7 kg Intake: IV 900 975 75 0.9 NACL 900 975 75 Intake, IV Titration 357.589 309.681 15.035 Amount Dexmedetomidine/0.9% NaCl 31.355 (Pmx) 400 mcg In Empty Bag 1 bag @ 0.2 MCG/KG/HR 4.49 mls/hr IV .[id number] [facility] Rx#:[id number] Norepinephrine 4 mg In 26.831 45.364 15.035 Sodium Chloride 0.9% 250 ml @ 0.05 MCG/KG/MIN 12. 961 mls/hr IV .[id number] [facility] Rx#:[id number] propofoL 1,000 mg In 299.403 264.317 Empty Bag 1 bag @ 5 MCG/ KG/MIN 2.041 mls/hr IV . Q24H [facility] Rx#:[id number] Oral 60 Tube Feeding 10 Output: Gastric Drainage 200 Urine 745 1765 150 Other: Voiding Method Indwelling Catheter Indwelling Catheter Indwelling Catheter ABP, PAP, CO, CI - Last Documented Arterial Blood Pressure 120/55 - Labs CBC & Chem 7: 12/09/21 05:20 12/09/21 05:20 Labs: Abnormal Lab Results - Last 24 Hours (Table) 12/08/21 12/08/21 12/09/21 Range/Units 16:45 23:58 05:19 WBC (3.8-10.6) k/uL RBC (4.30-5.90) m/uL Neutrophils # (1.3-7.7) k/uL Lymphocytes # (1.0-4.8) k/uL ABG pCO2 (35-45) mmHg ABG pO2 (83-108) mmHg ABG HCO3 (21-25) mmol/L ABG Total CO2 (19-24) mmol/L ABG O2 Saturation (94-97) % Creatinine (0.66-1.25) mg/dL Glucose (74-99) mg/dL POC Glucose (mg/dL) 126 H 146 H (70-110) mg/dL Calcium (8.4-10.2) mg/dL Total Protein (6.3-8.2) g/dL Albumin (3.5-5.0) g/dL CSF Glucose 82 H (40-70) mg/dL CSF Total Protein 86 H (12-60) mg/dL 12/09/21 12/09/21 12/09/21 Range/Units 05:20 05:20 06:14 WBC 17.5 H (3.8-10.6) k/uL RBC 4.22 L (4.30-5.90) m/uL Neutrophils # 15.9 H (1.3-7.7) k/uL Lymphocytes # 0.6 L (1.0-4.8) k/uL ABG pCO2 47 H (35-45) mmHg ABG pO2 179 H (83-108) mmHg ABG HCO3 27 H (21-25) mmol/L ABG Total CO2 28 H (19-24) mmol/L ABG O2 Saturation 99.7 H (94-97) % Creatinine 0.61 L (0.66-1.25) mg/dL Glucose 141 H (74-99) mg/dL POC Glucose (mg/dL) (70-110) mg/dL Calcium 8.0 L (8.4-10.2) mg/dL Total Protein 5.3 L (6.3-8.2) g/dL Albumin 2.8 L (3.5-5.0) g/dL CSF Glucose (40-70) mg/dL CSF Total Protein (12-60) mg/dL Microbiology - Last 24 Hours (Table) 12/07/21 04:00 Gram Stain - Final Sputum Sputum Culture - Final 12/08/21 16:45 CSF Gram Stain - Preliminary Cerebral Spinal Fluid CSF Culture - Preliminary 12/07/21 02:23 Blood Culture - Preliminary Blood No Growth after 48 hours
[2021-12-09] MEDS ORDERED: levETIRAcetam IV 1,000 MG in SALINE 1 100ML.BAG IVPB STA (16:30)
--- NOTE | 2021-12-09 20:40 | P.PN ---
Subjective Progress Note Date: 12/09/21 Patient was seen for a follow-up. Patient's family members including his and daughter were also present today. Patient was extubated earlier today. Patient is alert and awake, but still has some memory difficulties. He does not remember details prior to his seizure/syncope. 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 Patient does not remember that event. He does not remember going to [place] on Wednesday night prior to his syncope. Objective - Vital Signs Vital signs: Vital Signs Temp 97.7 F 12/09/21 12:00 Pulse 106 H 12/09/21 15:31 Resp 20 12/09/21 15:00 BP 115/66 12/09/21 07:00 Pulse Ox 93 L 12/09/21 15:00 FiO2 50 12/09/21 12:00 Intake & Output 12/08/21 12/09/21 12/09/21 18:59 06:59 18:59 Intake Total 0336.333 3235.681 776.110 Output Total 745 1965 1750 Balance 512.589 -520.319 -973.890 Weight 89.8 kg 87.7 kg Intake: IV 900 975 600 0.9 NACL 900 975 600 Intake, IV Titration 357.589 409.681 66.110 Amount Dexmedetomidine/0.9% NaCl 31.355 (Pmx) 400 mcg In Empty Bag 1 bag @ 0.2 MCG/KG/HR 4.49 mls/hr IV .[id number] [facility] Rx#:[id number] Norepinephrine 4 mg In 26.831 45.364 20.047 Sodium Chloride 0.9% 250 ml @ 0.05 MCG/KG/MIN 12. 961 mls/hr IV .[id number] [facility] Rx#:[id number] propofoL 1,000 mg In 299.403 364.317 46.063 Empty Bag 1 bag @ 5 MCG/ KG/MIN 2.041 mls/hr IV . Q24H [facility] Rx#:[id number] Oral 60 Tube Feeding 50 Other 60 Output: Gastric Drainage 200 Urine 745 1765 1750 Other: Voiding Method Indwelling Catheter Indwelling Catheter Indwelling Catheter ABP, PAP, CO, CI - Last Documented Arterial Blood Pressure 158/59 - Exam Patient is alert and awake, but encephalopathic, slow mentation. After has prolonged latency time to answer question. He could not tell current month or year. He knows he is in [facility] and name of the current president. He knows his and daughter. Speech and language functions otherwise are normal. Cranial nerves revealed normal visual seals, extraocular muscles, face. Tongue protrudes the midline. Muscle strength no pronator drift and the strength is normal in arms and legs. Sensations are equal. No ataxia. - Labs CBC & Chem 7: 12/09/21 05:20 12/09/21 05:20 Labs: Abnormal Lab Results - Last 24 Hours (Table) 12/08/21 12/08/21 12/09/21 Range/Units 16:45 23:58 05:19 WBC (3.8-10.6) k/uL RBC (4.30-5.90) m/uL Neutrophils # (1.3-7.7) k/uL Lymphocytes # (1.0-4.8) k/uL ABG pCO2 (35-45) mmHg ABG pO2 (83-108) mmHg ABG HCO3 (21-25) mmol/L ABG Total CO2 (19-24) mmol/L ABG O2 Saturation (94-97) % Creatinine (0.66-1.25) mg/dL Glucose (74-99) mg/dL POC Glucose (mg/dL) 126 H 146 H (70-110) mg/dL Calcium (8.4-10.2) mg/dL Total Protein (6.3-8.2) g/dL Albumin (3.5-5.0) g/dL CSF Glucose 82 H (40-70) mg/dL CSF Total Protein 86 H (12-60) mg/dL 12/09/21 12/09/21 12/09/21 Range/Units 05:20 05:20 06:14 WBC 17.5 H (3.8-10.6) k/uL RBC 4.22 L (4.30-5.90) m/uL Neutrophils # 15.9 H (1.3-7.7) k/uL Lymphocytes # 0.6 L (1.0-4.8) k/uL ABG pCO2 47 H (35-45) mmHg ABG pO2 179 H (83-108) mmHg ABG HCO3 27 H (21-25) mmol/L ABG Total CO2 28 H (19-24) mmol/L ABG O2 Saturation 99.7 H (94-97) % Creatinine 0.61 L (0.66-1.25) mg/dL Glucose 141 H (74-99) mg/dL POC Glucose (mg/dL) (70-110) mg/dL Calcium 8.0 L (8.4-10.2) mg/dL Total Protein 5.3 L (6.3-8.2) g/dL Albumin 2.8 L (3.5-5.0) g/dL CSF Glucose (40-70) mg/dL CSF Total Protein (12-60) mg/dL Microbiology - Last 24 Hours (Table) 12/07/21 04:00 Gram Stain - Final Sputum Sputum Culture - Final 12/08/21 16:45 CSF Gram Stain - Preliminary Cerebral Spinal Fluid CSF Culture - Preliminary 12/07/21 02:23 Blood Culture - Preliminary Blood No Growth after 48 hours Assessment and Plan Assessment: * Syncopal spell followed by severe agitation and confusion. Rule out ?postictal state. * Altered mental status, possible hepatic encephalopathy. Patient's ammonia was highly elevated 167. However repeat ammonia level is < 9 (after one dose of lactulose). Encephalitis less likely, with normal white cell count in the CSF. Likewise CVA less likely. * Status post extubation * Macrocytosis, with remote history of alcoholism * History of lymphoma in remission. * History of prostate cancer * COPD * Thoracic aortic aneurysm Plan: * Patient has clinically remarkably improved. He is extubated. His mentation is improving. Still encephalopathic. Patient has significant retrograde amnesia prior to the seizure/syncope. * Repeat CT head performed 12/08/2021 showed mild atrophy and chronic small vessel ischemic change. I personally review CT head, agree with the findings. * Repeat EEG performed today showed background slowing of moderate degree, and possible left temporal sharp waves. The study was technically quite limited as patient was significantly moving during the study. We will repeat EEG in the morning. In the meantime, we will give Keppra 1000 mg 1 dose IV. If repeat EEG is abnormal, then Keppra could be continued. * We will check MRI brain with and without contrast. * Patient started on acyclovir by ICU team. Pending HSV 1 and 2 PCR. * Consider cardiology consultation rule out arrhythmia. * Carotid Doppler revealed limited exam, with less than 50% stenosis of bilat eral ICA. * Patient started on lactulose. Repeat ammonia level is normal. * Thiamine 100 mg daily * DVT prophylaxis: Patient on Lovenox 40 mg subcu daily. * B12 537, folate 9.6, TSH is decreased 0.181, free T4 normal 1.26. IM to address abnormal thyroid functions. * CSF showed 1 WBC, 0 RBC, glucose 82, protein 86/60. HSV-1, HSV 2 pending. We will check viral cultures. * Dr. Nikhil Gomez Will resume neurology service in the morning.
[2021-12-09 23:18] LABS: Glucose,Whole Blood 102 mg/dL (70-110)
[2021-12-10] MEDS: NOREPINEPHRINE 4 MG in SODIUM CHLORIDE 0.9% 250 ML IV SCH (02:02)
[2021-12-10] MEDS: ACYCLOVIR SODIUM 800 MG in SODIUM CHLORIDE 0.9% 250 ML IVPB SCH ×3 (02:02→18:03)
--- NOTE | 2021-12-10 07:12 | XR ---
EXAMINATION TYPE: XR chest 1V portable DATE OF EXAM: 12/10/2021 COMPARISON: 12/09/2021 INDICATION: Tube placement TECHNIQUE: Single frontal view of the chest is obtained. FINDINGS: The heart size is normal. The pulmonary vasculature is upper limits of normal. Previous left lower lobe and right basilar infiltrates have largely resolved. Some mild residual is i n the right perihilar region. Endotracheal tube and nasogastric tube within. Left central venous catheter remains in position with tip in superior vena cava region. IMPRESSION: 1. Resolving bibasilar infiltrates. Mild residual remains in the right infrahilar region. Continued f ollow-up can be performed.
[2021-12-10] MEDS: DEXMEDETOMIDINE/0.9% NACL(PMX) 400 MCG in EMPTY BAG 1 BAG IV SCH (08:03)
[2021-12-10] MEDS: FAMOTIDINE 20 MG/2 ML VIAL IV SCH ×2 (08:10→21:16)
[2021-12-10] MEDS: ENOXAPARIN 40 MG/0.4 ML SYRINGE SQ SCH (08:10)
[2021-12-10] MEDS: THIAMINE 100 MG TAB PO SCH (08:10)
[2021-12-10] MEDS: SODIUM CHLORIDE 0.9% 1,000 ML IV SCH (08:13)
[2021-12-10 08:16] LABS: Basophils # (A) 0.1 k/uL (0-0.2); Basophils % (A) 1 %; Eosinophils % (A) 0 %; HCT 40.4 % (39.0-53.0); HGB 13.1 gm/dL (13.0-17.5); Lymphocytes # (A) 1.5 k/uL (1.0-4.8); Lymphocytes % (A) 12 %; MCH 32.4 pg (25.0-35.0); MCHC 32.4 g/dL (31.0-37.0); MCV 99.9 fL (80.0-100.0); Mean Platelet Volume 7.9; Monocytes % (A) 8 %; Neutrophils # (A) 9.7 k/uL (1.3-7.7); Neutrophils % (A) 78 %; Platelet Count 384 k/uL (150-450); RBC 4.05 m/uL (4.30-5.90); RDW 13.8 % (11.5-15.5); WBC 12.4 k/uL (3.8-10.6)
[2021-12-10] MEDS: IPRATROPIUM-ALBUTEROL 3 ML NEB INHALATION SCH ×4 (08:17→20:50)
[2021-12-10 08:29] LABS: African American GFR (CKD) >90 (>60 ml/min/1.73 sqM); Anion Gap 3 mmol/L; Blood Urea Nitrogen 10 mg/dL (9-20); Calcium 7.8 mg/dL (8.4-10.2); Carbon Dioxide 30 mmol/L (22-30); Chloride 107 mmol/L (98-107); Glucose 94 mg/dL (74-99); Non-African American GFR(CKD) >90 (>60 ml/min/1.73 sqM); Potassium 3.8 mmol/L (3.5-5.1); Sodium 140 mmol/L (137-145)
[2021-12-10] MEDS ORDERED: FUROSEMIDE 10 MG/ML 2 ML VIAL IV ONE (09:40)
--- NOTE | 2021-12-10 11:55 | P.PN ---
Subjective Progress Note Date: 12/10/21 On 12/08/2021, I'm seeing the patient for a follow-up. The patient remains intubated on a mechanical ventilator. This patient is known to have COPD and the patient is currently intubated on mechanical ventilator as the patient was found to be unresponsive. He collapsed at home and he was unconscious for a unknown period of time. EMS was brought to the scene and the patient was evaluated. The patient was brought into the emergency room he was quite agitated, he was intubated and placed on a mechanical ventilator. The workup despite the negative including a CAT scan of the brain that showed no acute abnormalities. CAT scan of the abdomen and pelvis using the CTA protocol showed an enlarging abdominal aortic aneurysm currently measuring about 5 cm in size. Nevertheless, there was no evidence of any dissection. The patient is currently on protocol running at 75 mcg/kg per minute. The patient remains on a mechanical ventilator on assist control mode at the rate of 22 with a tidal volume of 400 and FiO2 of 50% with a PEEP of 5. Blood gases showed a pH of 7.32 with a pCO2 of 45 and pO2 of 76. Chest x-ray shows no acute abnormalities. There is adequate expansion of both lungs and ET tube is in good location. Meanwhile, the patient remains in a normal sinus rhythm at the rate of 75. Hour and the patient is on low-dose norepinephrine running at 0.03 mcg/kg per minute. Blood work from today shows a component of non-anion Metabolic acidosis with a sodium level of 136 and a current of 110 and his serum bicarbonate 16. BNP isn't 9 with a creatinine of 0.59. The white cell count is at 18.4 with a hemoglobin of 15.6. The thyroid function test shows a normal free T4, no hypo glycemia, no fever, no other significant issues over the past 24 hours. The patient will be given a sedation holiday today. Note that an EEG was also done and the EEG showed abnormal EEG background with mixed frequency activity and there was evidence of mild generalized cerebral dysfunction consistent with encephalopathy and this could be potentially medication effect. No evidence of any acute seizure activity noted. The carotid Dopplers are also negative. 12/09/2021, I'm seeing the patient for a follow-up. The patient failed a sedation holiday yesterday because of increased agitation, asymmetry mechanical ventilator, hypertensive reaction marked tachypnea and hypotension.based on that , the sedation holiday was discontinued and the patient was given a CAT scan of the brain that showed cerebral atrophy without any acute abnormalities. This was a repeat CAT scan that was done over 24 hours. Following that, the patient was given a lumbar puncture. The cell count and ALP was extremely low and the protein was elevated at 86 and the patient had a normal glucose. Gram stain is still negative. Culture is still pending for now. HSV by PCR was also sent and the results are still pending for now. Case was discussed with neurology. There are plans to repeat EEG today. Meanwhile, I would suggest giving the patient another sedation holiday and reevaluate his mental status. The patient remains on a mechanical ventilator for now. He is an assist-control mode at a rate of 60 with a tidal volume of 600 and FiO2 of 50% with a PEEP of 5. Red asynchronous with a mechanical ventilator. Chest x-ray shows no acute abnormalities and ET tube is in a good location. PH is at 7.37 with a pCO2 of 47 and a pO2 of 179. No significant orotracheal secretions for now. The white cell count 17.4 with hemoglobin 13.6 and a platelet count of 388. The white cell count remains elevated and comparable compared to yesterday. Meanwhile, the electrolytes from today are all stable in the creatinine is also stable at 0.6. The patient remains on IV fluids of normal saline at the rate of 75 and propofol is running at 70 mcg/kg per minute. 8 2021, the patient is extubated and the patient is currently on oxygen at 6 L. Doing well. No specific complaints. He is a bit lethargic and is a and arousable and is following commands and answering questions appropriately. Denies having any chest pain. No focal neurological deficit and the patient is moving all 4 extremities without any limitation. A repeat EEG to be done today. There is a concern that the patient could've had a seizure episodes although this has not been officially confirmed. The patient was given a dose of Keppra and he may also started on a Maintenance of Subsequent EEG Shows seizure activity or any concerns for seizures. The patient otherwise is hemodynamically stable. The patient had a lumbar puncture and the patient is currently on acyclovir pending CSF HSV by PCR. Otherwise, as well as evaluation will be done and the patient is going to be fed today. He remains on normal saline at 75 mL an hour. He is afebrile for now. No other significant events. The patient was extubated without any major difficulties yesterday. Objective - Vital Signs Vital signs: Vital Signs Temp 98.1 F 12/10/21 08:00 Pulse 96 12/10/21 11:37 Resp 15 12/10/21 11:00 BP 134/73 12/10/21 11:00 Pulse Ox 92 L 12/10/21 11:00 FiO2 50 12/09/21 12:00 Intake & Output 12/09/21 12/10/21 12/10/21 18:59 06:59 18:59 Intake Total 1001.110 975 155 Output Total 2150 1255 210 Balance -1148.890 -280 -55 Weight 85 kg Intake: IV 825 975 155 0.9 NACL 825 975 155 Intake, IV Titration 66.110 Amount Norepinephrine 4 mg In 20.047 Sodium Chloride 0.9% 250 ml @ 0.05 MCG/KG/MIN 12. 961 mls/hr IV .[id number] [facility] Rx#:[id number] propofoL 1,000 mg In 46.063 Empty Bag 1 bag @ 5 MCG/ KG/MIN 2.041 mls/hr IV . Q24H [facility] Rx#:[id number] Tube Feeding 50 Other 60 Output: Urine 2150 1255 210 Other: Voiding Method Indwelling Catheter Indwelling Catheter Indwelling Catheter ABP, PAP, CO, CI - Last Documented Arterial Blood Pressure 160/54 - Exam No acute distress, extubated on 6 L of oxygen by nasal cannula Head exam was generally normal. There was no scleral icterus or corneal arcus. Mucous membranes were moist. Neck was supple and without jugular venous distension, thyromegaly, or carotid bruits. Carotids were easily palpable bilaterally. There was no adenopathy. Cardiovascular examination reveals regular rhythm rate. S1-S2 normal. No S3 or S4. No discernible murmur noted. Lungs reveal mostly clear breath sounds. Minimal scattered rhonchi. No wheezes or crackles. Breath sounds equal bilaterally. Abdomen soft bowel sounds are heard. No masses or tenderness. Extremities are intact. No cyanosis clubbing or edema. Skin is without rash or lesion. Neurologic examination alert and oriented 3 without any focal neurological deficits - Labs CBC & Chem 7: 12/10/21 08:00 12/10/21 08:00 Labs: Abnormal Lab Results - Last 24 Hours (Table) 12/10/21 12/10/21 Range/Units 08:00 08:00 WBC 12.4 H (3.8-10.6) k/uL RBC 4.05 L (4.30-5.90) m/uL Neutrophils # 9.7 H (1.3-7.7) k/uL Creatinine 0.64 L (0.66-1.25) mg/dL Calcium 7.8 L (8.4-10.2) mg/dL Microbiology - Last 24 Hours (Table) 12/07/21 02:23 Blood Culture - Preliminary Blood No Growth after 72 hours 12/08/21 16:45 CSF Gram Stain - Preliminary Cerebral Spinal Fluid CSF Culture - Preliminary 12/07/21 04:00 Gram Stain - Final Sputum Sputum Culture - Final Assessment and Plan Plan: Acute syncope, of unclear etiology, under investigation, could be seizure activity, awaiting follow-up EEG Acute hypoxic/hypercapnic respiratory failure, currently intubated on mechanical ventilator, stable acid-base status is stable on a mechanical ventilator. The patient was extubated yesterday and the patient is currently on 6 L O2 nasal cannula and his chest x-ray showing some inferior incision markings bilaterally History of COPD/asthma. History of ongoing tobacco use with nicotine addiction. History of alcohol use, quantity unknown. The serum alcohol level at the time of admission was negative History of lymphoma, the patient has been in remission Neurologic abdominal aortic aneurysm currently measuring 5 cm in size based on the CT angiogram Previous history of prostate cancer. Questionable hyperammonemia. History of marijuana smoking and aggressive the urine drug screen was essentially negative. Plan Repeat EEG today Proper neurology Monitor mental status Awaiting HSV by PCR meanwhile, this patient with IV acyclovir Patient has been extubated to nasal cannula currently on 6 L IV to 40 mL an hour give the patient undergoes of Lasix Echo was within normal limits We'll continue to follow make further recommendations based on his progress. A swallow evaluation to be done today, FiO2 to be weaned, EEG to be repeated We'll continue to follow
[2021-12-10] MEDS: levETIRAcetam 500 MG TAB PO SCH ×2 (13:18→21:24)
--- NOTE | 2021-12-10 15:33 | P.PN ---
Subjective Progress Note Date: 12/10/21 Patient is a 71-year-old male [facility] emergency department with altered mental status patient was found on the floor at home and the family brought him here patient is quite a bit agitated and was given at 10 mg dose of Ativan and the morphine after which her his mental status has worsened because of which patient was intubated. Patient although found to have hypercapnic respiratory failure with pCO2 of around 60 and pH of 7.22 patient appears to be a heavy smoker smoker was wheezing on exam, patient is being treated for COPD exacerbation. Patient had elevated ammonia level up to 125 patient does drink alcohol on a regular basis although liver enzymes are within normal. Within a f ew hours this ammonia level has come down to less than 9. Patient was given a dose of lactulose. Patient the ABGs improved now with pCO2 of around 51 and pH of around 7.34. Patient has elevated white cell count. Patient is on assist- control ventilation with tidal volume of 400 FiO2 of 50% PEEP of 5 set up respiratory rate of 22. Patient is breathing over the ventilator. Patient does have history of lymphoma unsure whether this is in remission will have to get the hip that history from the family. Patient is on propofol drip at this time occasionally still getting agitated. CT of the brain and did not show any significant abnormality of the thoracic CT did show 5 cm abdominal aortic an eurysm the size of which increased her from last test which was about 2 years ago from 3.5 cm. There was no evidence of leak or dissection. 12/08/2021 Patient is seen and evaluated in follow-up continues to be in the ICU and continues to be on the mechanical vent with FiO2 of 50% PEEP is 5. Weaning trials of propofol being conducted to assess mentation. Neurology and pulmonary following. Patient is continued on breathing treatments and IV steroids. Chest xray shows no acute process. Patient WBC is elevated possible reactivity and cultures are negative thus far. Patient is afebrile. Possible LP and repeat CT of the brain being discussed. EEG done showing abnormal due to encephalopathy with no seizure activity noted. Patient just weaned off levophed and continued on propofol. 2d echo ordered. Prognosis is guarded. 12/09/2021 Patient is seen this morning and continues to be in the ICU on mechanical vent with an FiO2 of 50% and PEEP is 5. Attempted weaning trials were unsuccessful y esterday as patient becomes recently agitated and hypertensive and is continued on propofol. Patient also requiring low-dose Levophed. LP was done yesterday with an elevation in protein and cultures are pending. Patient also had repeat CT of the brain yesterday which showed mild atrophy and chronic small vessel ischemia with no changes. Neurology is following planning on repeat EEG. WBC continues to be elevated although trending down at 17.5 other labs reviewed within normal limits. Chest x-ray this morning shows stable findings of COPD with no significant change from previous. Awaiting HSV results and patient is maintained on IV acyclovir and will continue at this time. Patient is afebrile and being evaluated for possible weaning trials again today with possible extubation. Prognosis remains guarded. Patient is continued on DuoNeb treatments and IV steroids have been discontinued. 12/10/2021 Patient is seen in follow-up this morning with sister and at the bedside with multiple questions. Multiple consultations following as patient continues to be in the ICU. Patient was successfully extubated yesterday and is currently maintained on 3-5 L via nasal cannula and weaning as tolerated. Patient is maintaining oxygen saturation above 90%. Neurology following and repeat EEG was done and report is pending at this time. MRI ordered also pending. Patient with questionable syncope and possible arrhythmia prior to arrival and will consult cardiology. Neurology workup in process. Patient continues with indwelling Hudson catheter and recommend discontinue. Recommend PT/OT evaluation. Patient is continued on acyclovir while awaiting for HSV results along with DuoNeb treatments and subcutaneous Lovenox for DVT prophylaxis. Patient was also started on Keppra while awaiting for EEG report per neurology. Chest x-ray today shows resolving bibasilar infiltrates mild residual remains in the right infrahilar region and was given a dose of IV Lasix. WBC is trending down at 12.4 and BMP has been reviewed and within normal limits. Sputum and blood cultures have been negative and CSF fluid currently pending at this time. Will also obtain a d-dimer along with sed rate and CRP and get a fasting lipid panel. After review of drug screen it was noted to be positive for THC. Multiple questions and concerns were answered to the best of our ability. Review of systems: Constitutional: No reports of fatigue, fever, or chills Cardiovascular: No reports of chest pain or palpitations Respiratory:reports of shortness of breath and weak cough GI: No reports of nausea, vomiting, or diarrhea : No reports of dysuria or retention Neurovascular: reports of weakness or numbness All medications have been reviewed Active Medications Acetaminophen (Acetaminophen Suppository 650 Mg Supp) 650 mg RECTAL Q4HR PRN PRN Reason: Fever And/ Or Mild Pain Albuterol/Ipratropium (Ipratropium-Albuterol 3 Ml Neb) 3 ml INHALATION RT-QID [facility] Last Admin: 12/10/21 11:24 Dose: 3 ml Enoxaparin Sodium (Enoxaparin 40 Mg/0.4 Ml Syringe) 40 mg SQ DAILY [facility] Last Admin: 12/10/21 08:10 Dose: 40 mg Famotidine (Famotidine 20 Mg/2 Ml Vial) 20 mg IV Q12HR [facility] Last Admin: 12/10/21 08:10 Dose: 20 mg Sodium Chloride (Saline 0.9%) 1,000 mls @ 40 mls/hr IV .Q24H [facility] Last Admin: 12/10/21 08:13 Dose: 20 mls/hr Acyclovir Sodium 800 mg/ (Sodium Chloride) 266 mls @ 266 mls/hr IVPB Q8H [facility]; Protocol Last Admin: 12/10/21 10:09 Dose: 266 mls/hr Levetiracetam (Levetiracetam 500 Mg Tab) 500 mg PO Q12HR [facility] Last Admin: 12/10/21 13:18 Dose: 500 mg Miscellaneous Information (Potassium Replacement Protocol 1 Each Misc) 1 each MISCELLANE DAILY PRN; Protocol PRN Reason: Per Protocol Morphine Sulfate (Morphine Sulfate 4 Mg/Ml Syringe) 4 mg IV Q2HR PRN PRN Reason: Pain Scale 8 to 10 Last Admin: 12/08/21 15:32 Dose: 4 mg Multi-Ingred Cream/Lotion/Oil/Oint (Artificial Tears Ointment 3.5 Gm Tube) 1 applic BOTH EYES Q4HR PRN PRN Reason: Dry Eye(s) Naloxone HCl (Naloxone 0.4 Mg/Ml 1 Ml Vial) 0.2 mg IV Q2M PRN PRN Reason: Opioid Reversal Thiamine HCl (Thiamine 100 Mg Tab) 100 mg PO DAILY [facility] Last Admin: 12/10/21 08:10 Dose: 100 mg PHYSICAL EXAMINATION: GENERAL: Awake, lethargic, alert and oriented 2 with slight confusion, delayed, thin built HEENT: Pupils are round and equally reacting to light. EOMI. No scleral icterus. No conjunctival pallor. Normocephalic, atraumatic. No pharyngeal erythema. No thyromegaly. CARDIOVASCULAR: S1 and S2 muffled PULMONARY: mild Expiratory wheezing on exam, diminished breath sounds bilaterally with some scattered rhonchi and crackles noted ABDOMEN: Soft, nontender, nondistended, normoactive bowel sounds. No palpable organomegaly. MUSCULOSKELETAL: No joint swelling or deformity. EXTREMITIES: No cyanosis, clubbing, or pedal edema. NEUROLOGICAL: Cooperative, confused and delayed with questions and responses, diffusely weak SKIN: No rashes. Assessment: -Altered mental status etiology is not clear may be related to marijuana use and may be secondary to hypercapnic respiratory failure as well. Possibly toxic/ metabolic encephalopathy. -hyperammonemia, improved. suspicion for hepatic encephalopathy is low -Respiratory acidosis and acute respiratory failure, hypercapnic respiratory failure acute secondary to COPD exacerbation patient will be started on systemic steroids -History of lymphoma, in remission -Leukocytosis which is reactive -Acute COPD exacerbation -Nicotine use -Possible syncope, patient is undergoing workup for syncope as well as seizu res, EEG abnormal suggestive of possible toxic encephalopathy with no seizure activity noted -DVT prophylaxis: Lovenox -Full code Plan: Recommend to continue with current medications and ICU monitoring with pulmonary and neurology following, weaning FiO2 as tolerated and patient is currently main tained on 3.5 L via nasal cannula Chest xray as mentioned previously and recommend continue with DuoNeb treatments Patient is continued on acyclovir and has been started on IV Keppra with neurology following closely. Repeat EEG was done this morning and pending. MRI ordered and pending at this time Recommend CRP, sed rate, fasting lipid panel in the morning, d-dimer, hepatitis panel. If d-dimer is positive will do CT angiogram and venous Dopplers of lower extremities Patient with syncope and questionable arrhythmia prior to admission will consult cardiology and appreciate input and recommendations. Recommend physical therapy evaluation Recommend repeat labs in the morning Due to multiple complex medical issues, prognosis is guarded Multiple questions and concerns were answered to the best of our abilities with family members present The impression and plan of care has been dictated by Alize Orta, Nurse Practitioner as directed. Dr. Humberto MD I have performed a history and examination and MDM of this patient, discussed the same with the dictator, and agree with the dictator's assessment and plan as written ,documented as a scribe. Based on total visit time, I have performed more than 50% of the visit. Objective - Vital Signs Vital signs: Vital Signs Temp 98.1 F 12/10/21 08:00 Pulse 93 12/10/21 09:00 Resp 13 12/10/21 09:00 BP 115/73 12/10/21 09:00 Pulse Ox 94 L 12/10/21 09:00 FiO2 50 12/09/21 12:00 Intake & Output 12/09/21 12/10/21 12/10/21 18:59 06:59 18:59 Intake Total 1001.110 975 75 Output Total 2150 1255 50 Balance -1148.890 -280 25 Weight 85 kg Intake: IV 825 975 75 0.9 NACL 825 975 75 Intake, IV Titration 66.110 Amount Norepinephrine 4 mg In 20.047 Sodium Chloride 0.9% 250 ml @ 0.05 MCG/KG/MIN 12. 961 mls/hr IV .[id number] [facility] Rx#:[id number] propofoL 1,000 mg In 46.063 Empty Bag 1 bag @ 5 MCG/ KG/MIN 2.041 mls/hr IV . Q24H [facility] Rx#:[id number] Tube Feeding 50 Other 60 Output: Urine 2150 1255 50 Other: Voiding Method Indwelling Catheter Indwelling Catheter Indwelling Catheter ABP, PAP, CO, CI - Last Documented Arterial Blood Pressure 160/54 - Labs CBC & Chem 7: 12/10/21 08:00 12/10/21 08:00 Labs: Abnormal Lab Results - Last 24 Hours (Table) 12/10/21 12/10/21 Range/Units 08:00 08:00 WBC 12.4 H (3.8-10.6) k/uL RBC 4.05 L (4.30-5.90) m/uL Neutrophils # 9.7 H (1.3-7.7) k/uL Creatinine 0.64 L (0.66-1.25) mg/dL Calcium 7.8 L (8.4-10.2) mg/dL Microbiology - Last 24 Hours (Table) 12/07/21 02:23 Blood Culture - Preliminary Blood No Growth after 72 hours 12/08/21 16:45 CSF Gram Stain - Preliminary Cerebral Spinal Fluid CSF Culture - Preliminary 12/07/21 04:00 Gram Stain - Final Sputum Sputum Culture - Final
--- NOTE | 2021-12-10 15:56 | P.PN ---
Subjective Progress Note Date: 12/10/21 I am seeing the patient for the first time during this admission. Patient denies of headache, neck pain. Per the nurse his mentation is improving. Please refer to Dr. Shell's notes for further details. Per the patient he had a fall and doesn't recall what exactly transpired. He denies any aura. Denies tripping on things. Denies history of seizure or stroke/TIA. Per medical record it seems the patient had syncopal episode followed by severe agitation and confusion. Rule out postictal state. He had elevated ammonia on presentation. He had repeat EEG yesterday and felt he had possible left tem poral sharp and was given Keppra 1gm once and Dr. Shell recommended a repeat EEG. Patient has pending MRI Brain. He had CSF study CSF showed clear, colorless, 1 WBC nucleated , 0 RBC, glucose 82 (normal is 40-70), protein 86 (normal is 60). HSV-1, HSV 2 and viral cultures are pending. He continues to be on Acyclovir. Objective - Vital Signs Vital signs: Vital Signs Temp 98.1 F 12/10/21 08:00 Pulse 84 12/10/21 08:29 Resp 10 L 12/10/21 08:00 BP 103/60 12/10/21 07:00 Pulse Ox 93 L 12/10/21 08:00 FiO2 50 12/09/21 12:00 Intake & Output 12/09/21 12/10/21 12/10/21 18:59 06:59 18:59 Intake Total 1001.110 975 75 Output Total 2150 1255 50 Balance -1148.890 -280 25 Weight 85 kg Intake: IV 825 975 75 0.9 NACL 825 975 75 Intake, IV Titration 66.110 Amount Norepinephrine 4 mg In 20.047 Sodium Chloride 0.9% 250 ml @ 0.05 MCG/KG/MIN 12. 961 mls/hr IV .[id number] [facility] Rx#:[id number] propofoL 1,000 mg In 46.063 Empty Bag 1 bag @ 5 MCG/ KG/MIN 2.041 mls/hr IV . Q24H [facility] Rx#:[id number] Tube Feeding 50 Other 60 Output: Urine 2150 1255 50 Other: Voiding Method Indwelling Catheter Indwelling Catheter ABP, PAP, CO, CI - Last Documented Arterial Blood Pressure 156/65 - Exam GENERAL: The patient is lying in bed and is not in acute distress. HENT: Supple neck. No nuchal rigidity. NEUROLOGICAL: Higher mental function: The patient is awake, alert, oriented to self, place. He stated the year is 2019 and could not tell me month but correctly stated the season. He correctly identified objects (pen and watch). Patient is following simple commands. No aphasia and no neglect. Cranial nerves: The pupils are round, equal and reactive to light. Visual seals are full to confrontation throughout. Extraocular movement is intact no nystagmus is noted. Facial sensation is normal to touch throughout. The facial strength is normal throughout. Tongue is midline and moved [id number] without any difficulty. No dysarthria is noted. Shoulder shrug is normal bilaterally. Motor: The strength is 5 over 5 throughout. Normal tone and bulk. Cerebellum: Normal finger to nose heel to chin bilaterally. Sensation: Sensation is normal to touch throughout. SOME OF THE WORK-UP DURING THIS HOSPITAL VISIT: * Afebrile during entire stay. * On initial presentation his wbc 12.4K and slightly neurotrophilic that increased to 18.1K and now trending down * Ammonia level 167 and repeat 9. * UDS: Marijuana detected. Otherwise rest is not detected. Serum Alcohol <10. * EEG 12/07/2021 is reported as revealed background disorganization with mixed frequency activity, suggestive of mild encephalopathy or medication effect. No epileptiform activity was seen. * Carotid Doppler revealed limited exam, with less than 50% stenosis of bilate ral ICA. * Repeat CT head performed 12/08/2021 showed mild atrophy and chronic small vessel ischemic change. I personally review CT head, agree with the findings. * Repeat EEG performed on 12/09/2021 is reported as showed background slowing of moderate degree, and possible left temporal sharp waves. The study was technically quite limited as patient was significantly moving during the study. * B12 537, folate 9.6, TSH is decreased 0.181, free T4 normal 1.26. * CSF study CSF showed clear, colorless, 1 WBC nucleated , 0 RBC, glucose 82 (normal is 40-70), protein 86 (normal is 60). - Labs CBC & Chem 7: 12/10/21 08:00 12/10/21 08:00 Labs: Abnormal Lab Results - Last 24 Hours (Table) 12/10/21 12/10/21 Range/Units 08:00 08:00 WBC 12.4 H (3.8-10.6) k/uL RBC 4.05 L (4.30-5.90) m/uL Neutrophils # 9.7 H (1.3-7.7) k/uL Creatinine 0.64 L (0.66-1.25) mg/dL Calcium 7.8 L (8.4-10.2) mg/dL Microbiology - Last 24 Hours (Table) 12/07/21 02:23 Blood Culture - Preliminary Blood No Growth after 72 hours 12/08/21 16:45 CSF Gram Stain - Preliminary Cerebral Spinal Fluid CSF Culture - Preliminary 12/07/21 04:00 Gram Stain - Final Sputum Sputum Culture - Final Assessment and Plan Assessment: * Syncopal spell followed by severe agitation and confusion. Possible due to postictal state (on repeat routine EEG on 12/09/2021 revealed possible left temporal sharps). * Altered mental status, possible hepatic encephalopathy. Patient's ammonia was highly elevated 167. However repeat ammonia level is < 9 (after one dose of lactulose). Encephalitis less likely, with normal white cell count in the CSF. Likewise CVA less likely---mentation improving * Macrocytosis, with remote history of alcoholism * History of lymphoma in remission. * History of prostate cancer * COPD * Thoracic aortic aneurysm Plan: * Repeat EEG performed on 12/09/2021 is reported as showed background slowing of moderate degree, and possible left temporal sharp waves. The study was technically quite limited as patient was significantly moving during the study. * Dr. Shell gave Keppra 1000 mg 1 dose IV. and recommended a repeat EEG and if abnormal, then Keppra could be continued. * Pending MRI Brain w/ and w/o. * CSF study showed clear, colorless, 1 WBC nucleated , 0 RBC, glucose 82 (normal is 40-70), protein 86 (normal is 60). HSV-1, HSV 2 and viral cultures are pending. He is on Acyclovir 800mg every 8 hours. If HSV and viral are negative then discontinue them. * TSH is decreased 0.181, free T4 normal 1.26. IM to address abnormal thyroid functions. * Will defer the rest of medical management to the primary and ICU team. The plan is discussed with patient and his nurse. Nikhil Gomez M.D. Neuro-Hospitalist Time with Patient: Less than 30
[2021-12-10] MEDS ORDERED: POTASSIUM CHLORIDE ER 20 MEQ TAB.ER PO ONE (17:00)
--- NOTE | 2021-12-10 21:21 | EEG ---
ELECTROENCEPHALOGRAM REPORT CLINICAL HISTORY: This is a 71-year-old gentleman with altered mental status. The video EEG is obtained to evaluate for seizure epileptiform discharges. RELEVANT MEDICATION: IV Keppra once on 12/09/2021. Otherwise, the patient is not on any antiepileptic drugs. EEG TYPE: A routine 21-channel EEG is performed with video using the 10/20 electrode placement system. DESCRIPTION: Wakefulness is obtained. During awake state, the background consists of low-to- moderate voltage of 6.5 to 7.5 hertz that is well modulated, well sustained. Occasionally the background consists of non-rhythmic delta intermixed with theta activity. Otherwise, there was no physiological stage 2 sleep architecture seen. There is no focal slowing. INTERICTAL AND ICTAL: None. ACTIVATION PROCEDURE: Photic stimulation and hyperventilation are not performed. CLINICAL INTERPRETATION: This is an abnormal routine EEG. The background slowing is suggestive of mild-to- moderate encephalopathy. Otherwise, there is no focal slowing, epileptiform discharge, or seizure on the EEG. Clinical correlation is recommended. Compared to the routine EEG on 12/09/2021, this current EEG is improved. [id number] / IJN: [id number] / MTDAmelia
[2021-12-11 00:18] LABS: Hepatitis A Antibody IgM Nonreactive (Nonreactive); Hepatitis B Core IgM Nonreactive (Nonreactive); Hepatitis B Surface Antigen Nonreactive (Nonreactive); Hepatitis C IgG Antibody Nonreactive (Nonreactive)
[2021-12-11] MEDS: ACYCLOVIR SODIUM 800 MG in SODIUM CHLORIDE 0.9% 250 ML IVPB SCH (01:58)
[2021-12-11 06:22] LABS: Basophils # (A) 0.1 k/uL (0-0.2); Basophils % (A) 1 %; Eosinophils # (A) 0.1 k/uL (0-0.7); Eosinophils % (A) 1 %; HCT 41.7 % (39.0-53.0); HGB 13.6 gm/dL (13.0-17.5); Lymphocytes # (A) 1.3 k/uL (1.0-4.8); Lymphocytes % (A) 12 %; MCH 32.2 pg (25.0-35.0); MCHC 32.6 g/dL (31.0-37.0); MCV 98.8 fL (80.0-100.0); Mean Platelet Volume 7.4; Monocytes # (A) 0.8 k/uL (0-1.0); Monocytes % (A) 8 %; Neutrophils # (A) 8.2 k/uL (1.3-7.7); Neutrophils % (A) 77 %; Platelet Count 395 k/uL (150-450); RBC 4.22 m/uL (4.30-5.90); RDW 13.7 % (11.5-15.5); WBC 10.7 k/uL (3.8-10.6)
[2021-12-11 06:34] LABS: African American GFR (CKD) >90 (>60 ml/min/1.73 sqM); Anion Gap 5 mmol/L; Blood Urea Nitrogen 11 mg/dL (9-20); Calcium 7.9 mg/dL (8.4-10.2); Carbon Dioxide 33 mmol/L (22-30); Chloride 101 mmol/L (98-107); Glucose 88 mg/dL (74-99); Non-African American GFR(CKD) >90 (>60 ml/min/1.73 sqM); Potassium 3.7 mmol/L (3.5-5.1); Sodium 139 mmol/L (137-145)
[2021-12-11] MEDS: IPRATROPIUM-ALBUTEROL 3 ML NEB INHALATION SCH ×4 (07:05→20:35)
[2021-12-11] MEDS ORDERED: POTASSIUM CHLORIDE ER 20 MEQ TAB.ER PO SCH (08:00)
--- NOTE | 2021-12-11 08:37 | US ---
EXAMINATION TYPE: US venous doppler duplex LE DATE OF EXAM: 12/11/2021 8:29 AM COMPARISON: NONE CLINICAL HISTORY: elevated d dimer. elevated labs, no swelling SIDE PERFORMED: bILATERAL TECHNIQUE: The lower extremity deep venous system is examined utilizing real time linear array sonog bárbara with graded compression, doppler sonography and color-flow sonography. VESSELS IMAGED: Common Femoral Vein Deep Femoral Vein Greater Saphenous Vein * Femoral Vein Popliteal Vein Small Saphenous Vein * Proximal Calf Veins (* superficial vessels) Right Leg: Negative for DVT Left Leg: Negative for DVT Grayscale, color doppler, spectral doppler imaging performed of the deep veins of the bilateral lower extremities. There is normal flow, compressibility, vascular waveforms. IMPRESSION: No ultrasound evidence for acute DVT in either lower extremity.
[2021-12-11] MEDS: ENOXAPARIN 40 MG/0.4 ML SYRINGE SQ SCH (09:51)
[2021-12-11] MEDS: FAMOTIDINE 20 MG/2 ML VIAL IV SCH (09:51)
[2021-12-11] MEDS: levETIRAcetam 500 MG TAB PO SCH ×2 (09:51→20:44)
[2021-12-11] MEDS: THIAMINE 100 MG TAB PO SCH (09:52)
[2021-12-11 10:42] VITALS: BMI 26.4
--- NOTE | 2021-12-11 10:43 | CT ---
EXAMINATION TYPE: CT angio chest CT DLP: 317.5 mGycm, Automated exposure control for dose reduction was used. DATE OF EXAM: 12/11/2021 10:14 AM COMPARISON: CTA chest abdomen pelvis 12/07/2021, 12/31/2015. CLINICAL INDICATION:Male, 71 years old with history of elevated d dimer. TECHNIQUE/CONTRAST: CTA scan of the thorax is performed with IV Contrast, patient injected with 100 mL of Isovue 370, pul monary embolism protocol. MIP images are created and reviewed. FINDINGS: Pulmonary Artery: Multiple bilateral pulmonary artery defects within the right main pulmonary artery and bilateral segmental and subsegmental pulmonary arteries. The pulmonary artery is of normal size m easuring 2.8 cm in diameter. Reflux of contrast into the IVC and hepatic veins. Flattening of the int erventricular septum with ventricular ratio 1.6. Lungs/Pleura: No pneumothorax. Trace bilateral pleural effusions. Bilateral lower lobe atelectasis. N o focal consolidation. Airway: Large airways are patent. Heart: Heart is within normal limits for size. No pericardial effusion. Coronary arterial calcificati ons. Vasculature: No evidence of aortic aneurysm. Atherosclerotic calcification of the aorta. Mediastinum: No gross evidence of adenopathy. Musculoskeletal: No acute osseous abnormalities Soft Tissues: Unremarkable. Lower neck: No significant findings. Upper Abdomen: Redemonstration of a 1.7 cm cystic lesion within the body the pancreas. Small hiatal h ernia. IMPRESSION: 1. Multiple bilateral pulmonary emboli involving the right main pulmonary artery and bilateral segmen rey and subsegmental pulmonary arteries with findings concerning for right heart strain. 2. Trace bilateral pleural effusions and atelectasis. 3. Stable pancreatic cystic lesion from 2015. Findings called to and discussed with ordering provider Alize Orta at 10:40 AM on 12/11/2021.
[2021-12-11 11:40] LABS: Chol/HDL Ratio 4.98 Ratio; LDL Cholesterol,Calculated 87.3 mg/dL (0.0-131.0)
--- NOTE | 2021-12-11 12:35 | P.PN ---
Subjective Progress Note Date: 12/11/21 On 12/08/2021, I'm seeing the patient for a follow-up. The patient remains intubated on a mechanical ventilator. This patient is known to have COPD and the patient is currently intubated on mechanical ventilator as the patient was found to be unresponsive. He collapsed at home and he was unconscious for a unknown period of time. EMS was brought to the scene and the patient was evaluated. The patient was brought into the emergency room he was quite agitated, he was intubated and placed on a mechanical ventilator. The workup despite the negative including a CAT scan of the brain that showed no acute abnormalities. CAT scan of the abdomen and pelvis using the CTA protocol showed an enlarging abdominal aortic aneurysm currently measuring about 5 cm in size. Nevertheless, there was no evidence of any dissection. The patient is currently on protocol running at 75 mcg/kg per minute. The patient remains on a mechanical ventilator on assist control mode at the rate of 22 with a tidal volume of 400 and FiO2 of 50% with a PEEP of 5. Blood gases showed a pH of 7.32 with a pCO2 of 45 and pO2 of 76. Chest x-ray shows no acute abnormalities. There is adequate expansion of both lungs and ET tube is in good location. Meanwhile, the patient remains in a normal sinus rhythm at the rate of 75. Hour and the patient is on low-dose norepinephrine running at 0.03 mcg/kg per minute. Blood work from today shows a component of non-anion Metabolic acidosis with a sodium level of 136 and a current of 110 and his serum bicarbonate 16. BNP isn't 9 with a creatinine of 0.59. The white cell count is at 18.4 with a hemoglobin of 15.6. The thyroid function test shows a normal free T4, no hypo glycemia, no fever, no other significant issues over the past 24 hours. The patient will be given a sedation holiday today. Note that an EEG was also done and the EEG showed abnormal EEG background with mixed frequency activity and there was evidence of mild generalized cerebral dysfunction consistent with encephalopathy and this could be potentially medication effect. No evidence of any acute seizure activity noted. The carotid Dopplers are also negative. 12/09/2021, I'm seeing the patient for a follow-up. The patient failed a sedation holiday yesterday because of increased agitation, asymmetry mechanical ventilator, hypertensive reaction marked tachypnea and hypotension.based on that , the sedation holiday was discontinued and the patient was given a CAT scan of the brain that showed cerebral atrophy without any acute abnormalities. This was a repeat CAT scan that was done over 24 hours. Following that, the patient was given a lumbar puncture. The cell count and ALP was extremely low and the protein was elevated at 86 and the patient had a normal glucose. Gram stain is still negative. Culture is still pending for now. HSV by PCR was also sent and the results are still pending for now. Case was discussed with neurology. There are plans to repeat EEG today. Meanwhile, I would suggest giving the patient another sedation holiday and reevaluate his mental status. The patient remains on a mechanical ventilator for now. He is an assist-control mode at a rate of 60 with a tidal volume of 600 and FiO2 of 50% with a PEEP of 5. Red asynchronous with a mechanical ventilator. Chest x-ray shows no acute abnormalities and ET tube is in a good location. PH is at 7.37 with a pCO2 of 47 and a pO2 of 179. No significant orotracheal secretions for now. The white cell count 17.4 with hemoglobin 13.6 and a platelet count of 388. The white cell count remains elevated and comparable compared to yesterday. Meanwhile, the electrolytes from today are all stable in the creatinine is also stable at 0.6. The patient remains on IV fluids of normal saline at the rate of 75 and propofol is running at 70 mcg/kg per minute. 8 2021, the patient is extubated and the patient is currently on oxygen at 6 L. Doing well. No specific complaints. He is a bit lethargic and is a and arousable and is following commands and answering questions appropriately. Denies having any chest pain. No focal neurological deficit and the patient is moving all 4 extremities without any limitation. A repeat EEG to be done today. There is a concern that the patient could've had a seizure episodes although this has not been officially confirmed. The patient was given a dose of Keppra and he may also started on a Maintenance of Subsequent EEG Shows seizure activity or any concerns for seizures. The patient otherwise is hemodynamically stable. The patient had a lumbar puncture and the patient is currently on acyclovir pending CSF HSV by PCR. Otherwise, as well as evaluation will be done and the patient is going to be fed today. He remains on normal saline at 75 mL an hour. He is afebrile for now. No other significant events. The patient was extubated without any major difficulties yesterday. 12/11/2021, the patient is clinically stable and the patient is following commands and answering questions. He remains on oxygen at 4 L. Based on elevated d-dimer levels, and workup was done. Doppler of the lower extremities were negative. The CT angiogram that was done this morning was obviously abnormal and the patient had multiple bilateral pulmonary emboli involving the right main only artery and bilateral segmental and subsegmental pulmonary arteries. There is also pleural effusion and a pancreatic pseudocyst is stable since 2015. As such, the Patient edition syncope could've been related to pulmonary embolism. Based on the findings, I started the patient on anticoagulation with Eliquis 10 milligrams by mouth twice a day. Meanwhile, the neuro workup included a lumbar puncture in the HSV by PCR was negative and IV acyclovir was discontinued today. The patient is afebrile. The patient is hemodynamically stable. The patient was able to ambulate yesterday. MRI of the brain is also to be completed today. Blood work shows a white cell count of 10.7 with hemoglobin 15.6 and a platelet count of 398 and the rest of the electrolytes and renal function are all stable. Objective - Vital Signs Vital signs: Vital Signs Temp 97.9 F 12/11/21 08:00 Pulse 92 12/11/21 11:25 Resp 11 L 12/11/21 09:00 BP 115/71 12/11/21 09:00 Pulse Ox 97 12/11/21 11:29 FiO2 50 12/09/21 12:00 Intake & Output 12/10/21 12/11/21 12/11/21 18:59 06:59 18:59 Intake Total 725 280 80 Output Total 2615 785 300 Balance -1890 -505 -220 Weight 83.4 kg 83.4 kg Intake: IV 725 280 80 0.9 NACL 475 280 80 Acyclovir Sodium 800 mg 250 In Sodium Chloride 0.9% 250 ml @ 266 mls/hr IVPB Q8H [facility] Rx#:[id number] Output: Urine 2615 785 300 Other: Voiding Method Indwelling Catheter Indwelling Catheter Indwelling Catheter # Bowel Movements 1 ABP, PAP, CO, CI - Last Documented Arterial Blood Pressure 160/54 - Exam No acute distress, extubated on 4 L of oxygen by nasal cannula Head exam was generally normal. There was no scleral icterus or corneal arcus. Mucous membranes were moist. Neck was supple and without jugular venous distension, thyromegaly, or carotid b ruits. Carotids were easily palpable bilaterally. There was no adenopathy. Cardiovascular examination reveals regular rhythm rate. S1-S2 normal. No S3 or S4. No discernible murmur noted. Lungs reveal mostly clear breath sounds. Minimal scattered rhonchi. No wheezes or crackles. Breath sounds equal bilaterally. Abdomen soft bowel sounds are heard. No masses or tenderness. Extremities are intact. No cyanosis clubbing or edema. Skin is without rash or lesion. Neurologic examination alert and oriented 3 without any focal neurological deficits - Labs CBC & Chem 7: 12/11/21 05:20 12/11/21 05:20 Labs: Abnormal Lab Results - Last 24 Hours (Table) 12/10/21 12/10/21 12/11/21 Range/Units 16:22 16:22 05:20 WBC (3.8-10.6) k/uL RBC (4.30-5.90) m/uL Neutrophils # (1.3-7.7) k/uL D-Dimer 9.32 H (<0.60) mg/L FEU Carbon Dioxide 33 H (22-30) mmol/L Calcium 7.9 L (8.4-10.2) mg/dL C-Reactive Protein 4.9 H (<1.0) mg/dL HDL Cholesterol 29.30 L (40.00-60.00) mg/dL 12/11/21 Range/Units 05:20 WBC 10.7 H (3.8-10.6) k/uL RBC 4.22 L (4.30-5.90) m/uL Neutrophils # 8.2 H (1.3-7.7) k/uL D-Dimer (<0.60) mg/L FEU Carbon Dioxide (22-30) mmol/L Calcium (8.4-10.2) mg/dL C-Reactive Protein (<1.0) mg/dL HDL Cholesterol (40.00-60.00) mg/dL Microbiology - Last 24 Hours (Table) 12/07/21 02:23 Blood Culture - Preliminary Blood No Growth after 96 hours 12/08/21 16:45 CSF Gram Stain - Preliminary Cerebral Spinal Fluid CSF Culture - Preliminary Assessment and Plan Plan: Acute syncope, possibly secondary to an acute pulmonary embolism, bilateral and the patient was found to have negative Dopplers. No strain pattern on the echocardiogram and the patient is going to be started on anticoagulation with Eliquis. Acute hypoxic/hypercapnic respiratory failure, improving and the patient is currently extubated the patient is currently on 4 L O2 nasal cannula History of COPD/asthma. History of ongoing tobacco use with nicotine addiction. History of alcohol use, quantity unknown. The serum alcohol level at the time of admission was negative History of lymphoma, the patient has been in remission Neurologic abdominal aortic aneurysm currently measuring 5 cm in size based on the CT angiogram Previous history of prostate cancer. Questionable hyperammonemia. History of marijuana smoking and aggressive the urine drug screen was essentially negative. Plan Wean FiO2 as tolerated Start anticoagulation with Eliquis MRI of the brain Stop the patient's acyclovir as the patient's HSV by PCand the CSF was negative The patient has been extubated to nasal cannula curre4 L nasal cannula IV to 40 mL an hour Echo was within normal limits We'll continue to follow make further recommendations based on his progress.
[2021-12-11] MEDS: APIXABAN 5 MG TAB PO SCH ×2 (13:25→20:44)
--- NOTE | 2021-12-11 14:24 | P.CRDCN ---
History of Present Illness Consult date: 12/11/21 Consult reason: sycope History of present illness: The patient is a 71-year-old male who presented to the hospital after experiencing a syncopal episode while in the bathroom. The patient after falling on the floor was very confused and disoriented. On arrival to the emergency room he was subsequently intubated for acute hypoxic respiratory f ailure. Over the course of his hospital admission he was extubated. Interview with Dr. Gonzales, the patient states he was not feeling unwell and was completely asymptomatic prior to his syncopal episode. He denies having any dizziness or lightheadedness nor any chest pain or chest pressure. DIAGNOSTICS: EKG shows sinus rhythm WithIncomplete right bundle branch block Thoracic CT shows 5 cm mid abdominal aneurysm without endoleak or dissection Carotid Doppler shows less than 50% stenosis bilaterally CT of the brain shows mild atrophy with chronic small vessel disease Echocardiogram reveals LV function at 60% without valvular abnormalities CT of the chest shows multiple bilateral pulmonary emboli Lower extremity Doppler negative for DVT PAST MEDICAL HISTORY: EtOH abuse, current smoker, Lymphoma REVIEW OF SYSTEMS: No current fever or chills. No cough or expectoration. No diaphoresis. Patient denies headache, blurred vision, double vision. Patient denies any stomach discomfort. No nausea, vomiting. No hematochezia. No hematemesis. Denies any black stools or blood in his stools. Denies dysuria or hematuria. No dizziness or lightheadedness since his hospital admission. No weakness or fatigue. No chest pain or chest pressure. No dyspnea or orthopnea. PHYSICAL EXAMINATION: This is a 71-year-old male in no apparent distress at the time of my examination. HEENT: Head is atraumatic, normocephalic. Pupils are equal, round. Sclerae anicteric. Mucous membranes of the mouth are moist. Neck is supple. There is no jugular venous distention. No carotid bruit is heard. CHEST EXAMINATION: Lungs are clear to auscultation. No chest wall tenderness is noted on palpation or with deep breathing. HEART EXAMINATION: Heart regular rate and rhythm. S1, S2 heard. No murmurs, rubs, or gallops. ABDOMEN: Soft, nontender. Bowel sounds are heard. No organomegaly noted. EXTREMITIES: 2+ peripheral pulses with no evidence of peripheral edema and no calf tenderness noted. NEUROLOGIC EXAMINATION: Patient is awake, alert and oriented x3. FINAL ASSESSMENT AND PLAN: Syncope and collapse, likely secondary to pulmonary emboli Acute hypoxic respiratory failure, currently on nasal cannula Incomplete right bundle branch block, no bradycardia Abdominal aortic aneurysm, 5 cm on CTA of the Chest/abdomen History of EtOH abuse Current smoker PLAN: Agree with novel anticoagulation for multiple bilateral pulmonary emboli No evidence of right heart strain on echocardiogram No further recommendations from the cardiac standpoint I am dictating on behalf of Dr Mukul Gonzales's history/physical and assessment/plan. Past Medical History Past Medical History: Asthma, Cancer, COPD Additional Past Medical History / Comment(s): Lymphoma , arthritis History of Any Multi-Drug Resistant Organisms: None Reported Past Surgical History: Tonsillectomy Additional Past Surgical History / Comment(s): mediport(not functioning), Past Anesthesia/Blood Transfusion Reactions: No Reported Reaction Additional Past Anesthesia/Blood Transfusion Reaction / Comment(s): only surg as child Past Psychological History: Anxiety Past Alcohol Use History: None Reported Past Drug Use History: None Reported - Past Family History Father Family Medical History: Cancer Mother Family Medical History: Cancer Sister(s) Family Medical History: Cancer Medications and Allergies Home Medications Medication Instructions Recorded Confirmed Type Acetaminophen Tab [Tylenol] 650 mg PO Q6H PRN 12/08/21 12/08/21 History Albuterol Sulfate [Proair Hfa] 2 puff INHALATION RT-Q4H PRN 12/08/21 12/08/21 History Cholecalciferol [Vitamin D3 (25 25 mcg PO DAILY 12/08/21 12/08/21 History Mcg = 1000 Iu)] Ipratropium-Albuterol Nebulize 3 ml INHALATION RT-QID 12/08/21 12/08/21 History [Duoneb 0.5 mg-3 mg/3 ml Soln] Allergies Allergy/AdvReac Type Severity Reaction Status Date / Time ibuprofen [From Motrin] Allergy Rash/Hives Verified 12/08/21 13:40 Physical Exam Vitals: Vital Signs Temp Pulse Resp BP Pulse Ox 12/11/21 11:29 97 12/11/21 11:25 92 12/11/21 11:15 94 12/11/21 09:00 91 11 L 115/71 91 L 12/11/21 08:00 97.9 F 98 12 115/71 92 L 12/11/21 07:16 93 12/11/21 07:06 91 95 12/11/21 07:00 80 94 L 12/11/21 06:00 85 26 H 120/72 91 L 12/11/21 05:00 89 21 124/75 91 L 12/11/21 04:00 98.4 F 86 16 113/65 93 L 12/11/21 03:00 93 16 132/76 94 L 12/11/21 02:00 85 18 137/72 96 12/11/21 01:00 91 21 137/79 93 L 12/11/21 00:06 87 39 H 137/79 93 L 12/11/21 00:00 98.5 F 96 18 132/86 89 L 12/10/21 23:00 104 H 14 128/60 93 L 12/10/21 22:00 103 H 26 H 132/86 94 L 12/10/21 21:04 97 12/10/21 21:00 94 17 147/90 96 12/10/21 20:51 98 12/10/21 20:00 98.4 F 86 22 113/60 92 L 12/10/21 19:00 99 18 134/73 93 L 12/10/21 18:00 86 23 127/73 94 L 12/10/21 17:00 96 15 131/74 93 L 12/10/21 16:00 97.8 F 94 15 130/77 91 L 12/10/21 15:32 90 12/10/21 15:21 89 12/10/21 15:00 90 13 132/73 Intake and Output 12/10/21 12/11/21 12/11/21 22:59 06:59 14:59 Intake Total 490 200 80 Output Total 690 585 300 Balance -200 -385 -220 Intake: IV 490 200 80 0.9 NACL 240 200 80 Acyclovir Sodium 800 mg 250 In Sodium Chloride 0.9% 250 ml @ 266 mls/hr IVPB Q8H [facility] Rx#:[id number] Output: Urine 690 585 300 Other: Voiding Method Indwelling Catheter Indwelling Catheter Indwelling Catheter # Bowel Movements 1 Weight 83.4 kg 83.4 kg Results 12/11/21 05:20 12/11/21 05:20 Lipids 12/11/21 Range/Units 05:20 Triglycerides 147.00 (0.00-149.00) mg/dL Cholesterol 146.00 (0.00-200.00) mg/dL HDL Cholesterol 29.30 L (40.00-60.00) mg/dL Cholesterol/HDL Ratio 4.98 Ratio CBC 12/11/21 Range/Units 05:20 WBC 10.7 H (3.8-10.6) k/uL RBC 4.22 L (4.30-5.90) m/uL Hgb 13.6 (13.0-17.5) gm/dL Hct 41.7 (39.0-53.0) % Plt Count 395 (150-450) k/uL Comprehensive Metabolic Panel 12/11/21 Range/Units 05:20 Sodium 139 (137-145) mmol/L Potassium 3.7 (3.5-5.1) mmol/L Chloride 101 (98-107) mmol/L Carbon Dioxide 33 H (22-30) mmol/L BUN 11 (9-20) mg/dL Creatinine 0.66 (0.66-1.25) mg/dL Glucose 88 (74-99) mg/dL Calcium 7.9 L (8.4-10.2) mg/dL Current Medications Generic Name Dose Route Start Last Admin Trade Name Freq PRN Reason Stop Dose Admin Acetaminophen 650 mg 12/07/21 03:07 Acetaminophen Suppository 650 Mg Supp RECTAL Q4HR PRN Fever And/ Or Mild Pain Albuterol/Ipratropium 3 ml 12/07/21 08:00 12/11/21 11:15 Ipratropium-Albuterol 3 Ml Neb INHALATION 3 ml RT-QID [facility] Administration Apixaban 10 mg 12/11/21 11:45 12/11/21 13:25 Apixaban 5 Mg Tab PO 12/17/21 21:01 10 mg BID [facility] Administration Protocol Famotidine 20 mg 12/11/21 21:00 Famotidine 20 Mg Tab PO BID [facility] Sodium Chloride 1,000 mls @ 40 mls/hr 12/07/21 03:15 12/10/21 08:13 Saline 0.9% IV 20 mls/hr .Q24H [facility] Administration Levetiracetam 500 mg 12/10/21 11:30 12/11/21 09:51 Levetiracetam 500 Mg Tab PO 500 mg Q12HR [facility] Administration Miscellaneous Information 1 each 12/07/21 06:47 Potassium Replacement Protocol 1 Each Misc MISCELLANE DAILY PRN Per Protocol Protocol Morphine Sulfate 4 mg 12/07/21 03:07 12/08/21 15:32 Morphine Sulfate 4 Mg/Ml Syringe IV 4 mg Q2HR PRN Administration Pain Scale 8 to 10 Multi-Ingred Cream/Lotion/Oil/Oint 1 applic 12/07/21 03:07 Artificial Tears Ointment 3.5 Gm Tube BOTH EYES Q4HR PRN Dry Eye(s) Naloxone HCl 0.2 mg 12/07/21 03:07 Naloxone 0.4 Mg/Ml 1 Ml Vial IV Q2M PRN Opioid Reversal Thiamine HCl 100 mg 12/07/21 17:30 12/11/21 09:52 Thiamine 100 Mg Tab PO 100 mg DAILY [facility] Administration Intake and Output 12/10/21 12/11/21 12/11/21 22:59 06:59 14:59 Intake Total 490 200 80 Output Total 690 585 300 Balance -200 -385 -220 Intake: IV 490 200 80 0.9 NACL 240 200 80 Acyclovir Sodium 800 mg 250 In Sodium Chloride 0.9% 250 ml @ 266 mls/hr IVPB Q8H [facility] Rx#:[id number] Output: Urine 690 585 300 Other: Voiding Method Indwelling Catheter Indwelling Catheter Indwelling Catheter # Bowel Movements 1 Weight 83.4 kg 83.4 kg Patient Weight 12/12/21 06:59 Weight 83.4 kg 12/11/21 05:20 12/11/21 05:20
--- NOTE | 2021-12-11 16:24 | P.PN ---
Subjective Progress Note Date: 12/11/21 The patient is seen at bedside and feels he is doing well. Per nurse he is making improvement the last two days. Objective - Vital Signs Vital signs: Vital Signs Temp 97.9 F 12/11/21 08:00 Pulse 92 12/11/21 11:25 Resp 11 L 12/11/21 09:00 BP 115/71 12/11/21 09:00 Pulse Ox 97 12/11/21 11:29 FiO2 50 12/09/21 12:00 Intake & Output 12/10/21 12/11/21 12/11/21 18:59 06:59 18:59 Intake Total 725 280 80 Output Total 2615 785 300 Balance -1890 -505 -220 Weight 83.4 kg 83.4 kg Intake: IV 725 280 80 0.9 NACL 475 280 80 Acyclovir Sodium 800 mg 250 In Sodium Chloride 0.9% 250 ml @ 266 mls/hr IVPB Q8H [facility] Rx#:[id number] Output: Urine 2615 785 300 Other: Voiding Method Indwelling Catheter Indwelling Catheter Indwelling Catheter # Bowel Movements 1 ABP, PAP, CO, CI - Last Documented Arterial Blood Pressure 160/54 - Exam GENERAL: The patient is lying in bed and is not in acute distress. HENT: Supple neck. No nuchal rigidity. NEUROLOGICAL: Higher mental function: The patient is awake, alert, oriented to self, place. He stated the year is 2019 and could not tell me month but correctly stated the season. He correctly identified objects (pen and watch). Patient is following simple commands. No aphasia and no neglect. Cranial nerves: The pupils are round, equal and reactive to light. Visual fiel ds are full to confrontation throughout. Extraocular movement is intact no nystagmus is noted. Facial sensation is normal to touch throughout. The facial strength is normal throughout. Tongue is midline and moved [id number] without any difficulty. No dysarthria is noted. Shoulder shrug is normal bilaterally. Motor: The strength is 5 over 5 throughout. Normal tone and bulk. Cerebellum: Normal finger to nose heel to chin bilaterally. Sensation: Sensation is normal to touch throughout. SOME OF THE WORK-UP DURING THIS HOSPITAL VISIT: * Afebrile during entire stay. * On initial presentation his wbc 12.4K and slightly neurotrophilic that increased to 18.1K and now trending down * Ammonia level 167 and repeat 9. * UDS: Marijuana detected. Otherwise rest is not detected. Serum Alcohol <10. * EEG 12/07/2021 is reported as revealed background disorganization with mixed frequency activity, suggestive of mild encephalopathy or medication effect. No epileptiform activity was seen. * Carotid Doppler revealed limited exam, with less than 50% stenosis of bilateral ICA. * Repeat CT head performed 12/08/2021 showed mild atrophy and chronic small vessel ischemic change. I personally review CT head, agree with the findings. * Repeat EEG performed on 12/09/2021 is reported as showed background slowing of moderate degree, and possible left temporal sharp waves. The study was technically quite limited as patient was significantly moving during the study. * Routine EEG on 12/10/2021 is abnormal. The background slowing suggestive of mild to moderate encephalopathy. Otherwise there is no focal slowing, epileptiform discharges or seizure in the EEG. Compared to the EEG on 12/09/2021 is seems better. * B12 537, folate 9.6, TSH is decreased 0.181, free T4 normal 1.26. * CSF study CSF showed clear, colorless, 1 WBC nucleated , 0 RBC, glucose 82 (normal is 40-70), protein 86 (normal is 60). * HSV-1 PCR was not detected as well as 2 was not detected. Hepatitis B service antigen B core antibody and hepatitis C antibody was nonreactive. * ESR is 8. - Labs CBC & Chem 7: 12/11/21 05:20 12/11/21 05:20 Labs: Abnormal Lab Results - Last 24 Hours (Table) 12/10/21 12/10/21 12/11/21 Range/Units 16:22 16:22 05:20 WBC (3.8-10.6) k/uL RBC (4.30-5.90) m/uL Neutrophils # (1.3-7.7) k/uL D-Dimer 9.32 H (<0.60) mg/L FEU Carbon Dioxide 33 H (22-30) mmol/L Calcium 7.9 L (8.4-10.2) mg/dL C-Reactive Protein 4.9 H (<1.0) mg/dL 12/11/21 Range/Units 05:20 WBC 10.7 H (3.8-10.6) k/uL RBC 4.22 L (4.30-5.90) m/uL Neutrophils # 8.2 H (1.3-7.7) k/uL D-Dimer (<0.60) mg/L FEU Carbon Dioxide (22-30) mmol/L Calcium (8.4-10.2) mg/dL C-Reactive Protein (<1.0) mg/dL Microbiology - Last 24 Hours (Table) 12/07/21 02:23 Blood Culture - Preliminary Blood No Growth after 96 hours 12/08/21 16:45 CSF Gram Stain - Preliminary Cerebral Spinal Fluid CSF Culture - Preliminary Assessment and Plan Assessment: * Syncopal spell followed by severe agitation and confusion. Possible due to postictal state (on repeat routine EEG on 12/09/2021 revealed possible left temporal sharps). * Altered mental status, possible hepatic encephalopathy. Patient's ammonia was highly elevated 167. However repeat ammonia level is < 9 (after one dose of lactulose). Encephalitis less likely, with normal white cell count in the CSF. Likewise CVA less likely---mentation improving * Macrocytosis, with remote history of alcoholism * History of lymphoma in remission. * History of prostate cancer * COPD * Thoracic aortic aneurysm Plan: * Repeat EEG performed on 12/09/2021 is reported as showed background slowing of moderate degree, and possible left temporal sharp waves. The study was technically quite limited as patient was significantly moving during the study. * But repeat EEG on 12/10/2021: It is mild to moderate encephalopathy. No focal slowing, epileptiform discharges or seizure on the EEG. * I placed the patient on Keppra 500mg 1 tab bid since there was questionable sharps over left temporal reported on 12/09/2021. We do not have 24 hour EEG which will be more sensitive to rule out any further epileptiform discharges or seizures. * I ordered 2.5 hour EEG ambulatory as outpatient which will be coordinated by lab technologist. He needs to follow-up with neurologist and as outpatient will defer modification of medication (antiepileptic as outpatient). * Pending MRI Brain w/ and w/o. * Agree with discontinuing Acylovir. * TSH is decreased 0.181, free T4 normal 1.26. IM to address abnormal thyroid functions. * Will defer the rest of medical management to the primary and ICU team. The plan is discussed with patient and his nurse. Nikhil Gomez M.D. Neuro-Hospitalist Time with Patient: Less than 30
--- NOTE | 2021-12-11 17:16 | MR ---
EXAMINATION TYPE: MR brain wo/w con DATE OF EXAM: 12/11/2021 COMPARISON: CT brain 12/08/2021 HISTORY: New onset seizure vs syncope TECHNIQUE: Multiplanar, multisequence images of the brain and brainstem is performed without and with IV contras t, utilizing 8.5ml mL intravenous Gadavist . FINDINGS: Diffusion weighted images demonstrate no evidence of a recent infarct or other diffusion ab normality. There is no extra-axial fluid. There is scattered patchy high FLAIR signal throughout the deep white matter. There is no abnormal postcontrast enhancement Ventricular system and cisternal spaces are normal in size and appearance. The brain volume is age a ppropriate. Midline structures demonstrate normal morphology. The craniocervical junction appears within normal limits. Post contrast images demonstrate no abnormal enhancement. The dural venous sinuses appear pa tent. The visualized sinuses are clear and the globes are intact. Signal in the right apex with low T1/high T2 signal measuring 15 x 11 mm without postcontrast enhance ment. Similar area within the left petrous apex is noted on coronal imaging measuring 8 x 3 mm. IMPRESSION: 1. No evidence for acute intracranial process to explain the patient's seizures. No abnormal postcon trast enhancement. 2. No acute/subacute CVA. 3. Suspected bilateral petrous apex effusions. 4. Nonspecific white matter changes likely secondary to small vessel ischemic disease.
--- NOTE | 2021-12-11 19:34 | P.PN ---
Subjective Progress Note Date: 12/11/21 Patient is a 71-year-old male tachycardia [facility] emergency department with altered mental status patient was found on the floor at home and the family brought him here patient is quite a bit agitated and was given at 10 mg dose of Ativan and the morphine after which her his mental status has worsened because of which patient was intubated. Patient although found to have hypercapnic respiratory failure with pCO2 of around 60 and pH of 7.22 patient appears to be a heavy smoker smoker was wheezing on exam, patient is being treated for COPD exacerbation. Patient had elevated ammonia level up to 125 patient does drink alcohol on a regular basis although liver enzymes are within normal. Within a f ew hours this ammonia level has come down to less than 9. Patient was given a dose of lactulose. Patient the ABGs improved now with pCO2 of around 51 and pH of around 7.34. Patient has elevated white cell count. Patient is on assist- control ventilation with tidal volume of 400 FiO2 of 50% PEEP of 5 set up respiratory rate of 22. Patient is breathing over the ventilator. Patient does have history of lymphoma unsure whether this is in remission will have to get the hip that history from the family. Patient is on propofol drip at this time occasionally still getting agitated. CT of the brain and did not show any significant abnormality of the thoracic CT did show 5 cm abdominal aortic an eurysm the size of which increased her from last test which was about 2 years ago from 3.5 cm. There was no evidence of leak or dissection. 12/08/2021 Patient is seen and evaluated in follow-up continues to be in the ICU and continues to be on the mechanical vent with FiO2 of 50% PEEP is 5. Weaning trials of propofol being conducted to assess mentation. Neurology and pulmonary following. Patient is continued on breathing treatments and IV steroids. Chest xray shows no acute process. Patient WBC is elevated possible reactivity and cultures are negative thus far. Patient is afebrile. Possible LP and repeat CT of the brain being discussed. EEG done showing abnormal due to encephalopathy with no seizure activity noted. Patient just weaned off levophed and continued on propofol. 2d echo ordered. Prognosis is guarded. 12/09/2021 Patient is seen this morning and continues to be in the ICU on mechanical vent with an FiO2 of 50% and PEEP is 5. Attempted weaning trials were unsuccessful y esterday as patient becomes recently agitated and hypertensive and is continued on propofol. Patient also requiring low-dose Levophed. LP was done yesterday with an elevation in protein and cultures are pending. Patient also had repeat CT of the brain yesterday which showed mild atrophy and chronic small vessel ischemia with no changes. Neurology is following planning on repeat EEG. WBC continues to be elevated although trending down at 17.5 other labs reviewed within normal limits. Chest x-ray this morning shows stable findings of COPD with no significant change from previous. Awaiting HSV results and patient is maintained on IV acyclovir and will continue at this time. Patient is afebrile and being evaluated for possible weaning trials again today with possible extubation. Prognosis remains guarded. Patient is continued on DuoNeb treatments and IV steroids have been discontinued. 12/10/2021 Patient is seen in follow-up this morning with sister and at the bedside with multiple questions. Multiple consultations following as patient continues to be in the ICU. Patient was successfully extubated yesterday and is currently maintained on 3-5 L via nasal cannula and weaning as tolerated. Patient is maintaining oxygen saturation above 90%. Neurology following and repeat EEG was done and report is pending at this time. MRI ordered also pending. Patient with questionable syncope and possible arrhythmia prior to arrival and will consult cardiology. Neurology workup in process. Patient continues with indwelling Hudson catheter and recommend discontinue. Recommend PT/OT evaluation. Patient is continued on acyclovir while awaiting for HSV results along with DuoNeb treatments and subcutaneous Lovenox for DVT prophylaxis. Patient was also started on Keppra while awaiting for EEG report per neurology. Chest x-ray today shows resolving bibasilar infiltrates mild residual remains in the right infrahilar region and was given a dose of IV Lasix. WBC is trending down at 12.4 and BMP has been reviewed and within normal limits. Sputum and blood cultures have been negative and CSF fluid currently pending at this time. Will also obtain a d-dimer along with sed rate and CRP and get a fasting lipid panel. After review of drug screen it was noted to be positive for THC. Multiple questions and concerns were answered to the best of our ability. 12/11/2021 Patient is seen today and is awaiting transfer from the ICU to med-surg. Multiple medical consultations following including pulmonary and neurology. Cardiology consulted. Patient did have an elevated d dimer and cta was ordered along with bilateral lower extremity venous dopplers. Patient is continued on lovenox. Patient covid was negative. Patient is currently on room air and has been up and working with physical therapy. MRI of the brain ordered and pending for today. HSV was negative and acyclovir was discontinued. Patient is afebrile and WBC is trending down. Other labs reviewed and within normal limits. Patient denies chest pain or shortness of breath. Patient is tolerating diet with no reports of nausea or vomiting noted. Review of systems: Constitutional: No reports of fatigue, fever, or chills Cardiovascular: No reports of chest pain or palpitations Respiratory:no reports of shortness of breath or cough GI: No reports of nausea, vomiting, or diarrhea : No reports of dysuria or retention Neurovascular: no reports of weakness All medications have been reviewed Active Medications Acetaminophen (Acetaminophen Suppository 650 Mg Supp) 650 mg RECTAL Q4HR PRN PRN Reason: Fever And/ Or Mild Pain Albuterol/Ipratropium (Ipratropium-Albuterol 3 Ml Neb) 3 ml INHALATION RT-QID [facility] Last Admin: 12/11/21 15:53 Dose: Not Given Apixaban (Apixaban 5 Mg Tab) 10 mg PO BID [facility]; Protocol Stop: 12/17/21 21:01 Last Admin: 12/11/21 13:25 Dose: 10 mg Famotidine (Famotidine 20 Mg Tab) 20 mg PO BID [facility] Sodium Chloride (Saline 0.9%) 1,000 mls @ 40 mls/hr IV .Q24H [facility] Last Admin: 12/10/21 08:13 Dose: 20 mls/hr Levetiracetam (Levetiracetam 500 Mg Tab) 500 mg PO Q12HR [facility] Last Admin: 12/11/21 09:51 Dose: 500 mg Miscellaneous Information (Potassium Replacement Protocol 1 Each Misc) 1 each MISCELLANE DAILY PRN; Protocol PRN Reason: Per Protocol Morphine Sulfate (Morphine Sulfate 4 Mg/Ml Syringe) 4 mg IV Q2HR PRN PRN Reason: Pain Scale 8 to 10 Last Admin: 12/08/21 15:32 Dose: 4 mg Multi-Ingred Cream/Lotion/Oil/Oint (Artificial Tears Ointment 3.5 Gm Tube) 1 applic BOTH EYES Q4HR PRN PRN Reason: Dry Eye(s) Naloxone HCl (Naloxone 0.4 Mg/Ml 1 Ml Vial) 0.2 mg IV Q2M PRN PRN Reason: Opioid Reversal Thiamine HCl (Thiamine 100 Mg Tab) 100 mg PO DAILY GIA Last Admin: 12/11/21 09:52 Dose: 100 mg PHYSICAL EXAMINATION: GENERAL: Awake, alert and oriented 2-3, thin built HEENT: Pupils are round and equally reacting to light. EOMI. No scleral icterus. No conjunctival pallor. Normocephalic, atraumatic. No pharyngeal erythema. No thyromegaly. CARDIOVASCULAR: S1 and S2 muffled PULMONARY: diminished breath sounds bilaterally with some scattered rhonchi noted ABDOMEN: Soft, nontender, non-distended, normoactive bowel sounds. No palpable organomegaly. MUSCULOSKELETAL: No joint swelling or deformity. EXTREMITIES: No cyanosis, clubbing, or pedal edema. NEUROLOGICAL: Cooperative,more awake and alert today, diffusely weak SKIN: No rashes. Assessment: -Altered mental status possibly be related to marijuana use and may be secondary to hypercapnic respiratory failure as well. Possibly toxic/ metabolic ence phalopathy. Improved -hyperammonemia, improved. suspicion for hepatic encephalopathy is low -Respiratory acidosis and acute respiratory failure, hypercapnic respiratory failure acute secondary to COPD exacerbation -elevated D-dimer with bilateral pulmonary emboli with concern for right heart strain as noted on CT -History of lymphoma, in remission -Leukocytosis which is reactive, improving -Acute COPD exacerbation -Nicotine use -Possible syncope, patient is undergoing workup for syncope as well as seizures, EEG abnormal suggestive of possible toxic encephalopathy with no seizure activity noted -DVT prophylaxis: Eliquis -Full code Plan: Recommend to continue with current medications and awaiting med surg bed for transfer out of ICU with pulmonary, cardiology, and neurology following, weaning FiO2 as tolerated and patient is currently maintained on on room air D-dimer is elevated at 9 and CTA done showing multiple bilateral pulmonary emboli with concern for right heart strain. Cardiology reviewed the echo with no evidence of right heart strain noted and being started on Eliquis 10mg BID. venous dopplers of the lower extremities were negative for dvt. Patient was on acyclovir and HSV negative and being discontinued. Patient continues on IV Keppra with neurology following closely. MRI brain ordered and to be done this afternoon. Patient with syncope and cardiology evaluated feels most likely related to the pulmonary embolism Recommend physical therapy daily Recommend repeat labs in the morning Due to multiple complex medical issues, prognosis is guarded The impression and plan of care has been dictated by Alize Orta, Nurse Practitioner as directed. Dr. Humberto MD I have performed a history and examination and MDM of this patient, discussed th e same with the dictator, and agree with the dictator's assessment and plan as written ,documented as a scribe. Based on total visit time, I have performed more than 50% of the visit. Objective - Vital Signs Vital signs: Vital Signs Temp 97.9 F 12/11/21 08:00 Pulse 91 12/11/21 09:00 Resp 11 L 12/11/21 09:00 BP 115/71 12/11/21 09:00 Pulse Ox 91 L 12/11/21 09:00 FiO2 50 12/09/21 12:00 Intake & Output 12/10/21 12/11/21 12/11/21 18:59 06:59 18:59 Intake Total 725 280 80 Output Total 2615 785 150 Balance -1890 -505 -70 Weight 83.4 kg Intake: IV 725 280 80 0.9 NACL 475 280 80 Acyclovir Sodium 800 mg 250 In Sodium Chloride 0.9% 250 ml @ 266 mls/hr IVPB Q8H [facility] Rx#:[id number] Output: Urine 2615 785 150 Other: Voiding Method Indwelling Catheter Indwelling Catheter Indwelling Catheter ABP, PAP, CO, CI - Last Documented Arterial Blood Pressure 160/54 - Labs CBC & Chem 7: 12/11/21 05:20 12/11/21 05:20 Labs: Abnormal Lab Results - Last 24 Hours (Table) 12/10/21 12/10/21 12/11/21 Range/Units 16:22 16:22 05:20 WBC (3.8-10.6) k/uL RBC (4.30-5.90) m/uL Neutrophils # (1.3-7.7) k/uL D-Dimer 9.32 H (<0.60) mg/L FEU Carbon Dioxide 33 H (22-30) mmol/L Calcium 7.9 L (8.4-10.2) mg/dL C-Reactive Protein 4.9 H (<1.0) mg/dL 12/11/21 Range/Units 05:20 WBC 10.7 H (3.8-10.6) k/uL RBC 4.22 L (4.30-5.90) m/uL Neutrophils # 8.2 H (1.3-7.7) k/uL D-Dimer (<0.60) mg/L FEU Carbon Dioxide (22-30) mmol/L Calcium (8.4-10.2) mg/dL C-Reactive Protein (<1.0) mg/dL Microbiology - Last 24 Hours (Table) 12/07/21 02:23 Blood Culture - Preliminary Blood No Growth after 96 hours 12/08/21 16:45 CSF Gram Stain - Preliminary Cerebral Spinal Fluid CSF Culture - Preliminary
[2021-12-11] MEDS: FAMOTIDINE 20 MG TAB PO SCH (20:44)
[2021-12-12] MEDS: SODIUM CHLORIDE 0.9% 1,000 ML IV SCH (05:26)
[2021-12-12] MEDS: APIXABAN 5 MG TAB PO SCH ×2 (07:31→20:12)
[2021-12-12] MEDS: THIAMINE 100 MG TAB PO SCH (07:31)
[2021-12-12] MEDS: levETIRAcetam 500 MG TAB PO SCH (07:32)
[2021-12-12] MEDS: FAMOTIDINE 20 MG TAB PO SCH ×2 (07:32→20:12)
[2021-12-12] MEDS: IPRATROPIUM-ALBUTEROL 3 ML NEB INHALATION SCH ×4 (08:09→19:48)
--- NOTE | 2021-12-12 11:30 | XR ---
EXAMINATION TYPE: XR KUB DATE OF EXAM: 12/12/2021 11:12 AM CLINICAL HISTORY: Left lower abdominal pain TECHNIQUE: Two supine KUB images of the abdomen are obtained. COMPARISON: CTA aorta December 07, 2021. FINDINGS: Scattered gas is seen in non-distended small bowel loops. Gas and fecal material is seen in non-distended colon. Vascular calcification overlies the pelvis. Osseous structures are intact. IMPRESSION: Overall nonobstructive bowel gas pattern redemonstrated.
--- NOTE | 2021-12-12 13:02 | P.PN ---
Subjective Progress Note Date: 12/12/21 On 12/08/2021, I'm seeing the patient for a follow-up. The patient remains intubated on a mechanical ventilator. This patient is known to have COPD and the patient is currently intubated on mechanical ventilator as the patient was found to be unresponsive. He collapsed at home and he was unconscious for a unknown period of time. EMS was brought to the scene and the patient was evaluated. The patient was brought into the emergency room he was quite agitated, he was intubated and placed on a mechanical ventilator. The workup despite the negative including a CAT scan of the brain that showed no acute abnormalities. CAT scan of the abdomen and pelvis using the CTA protocol showed an enlarging abdominal aortic aneurysm currently measuring about 5 cm in size. Nevertheless, there was no evidence of any dissection. The patient is currently on protocol running at 75 mcg/kg per minute. The patient remains on a mechanical ventilator on assist control mode at the rate of 22 with a tidal volume of 400 and FiO2 of 50% with a PEEP of 5. Blood gases showed a pH of 7.32 with a pCO2 of 45 and pO2 of 76. Chest x-ray shows no acute abnormalities. There is adequate expansion of both lungs and ET tube is in good location. Meanwhile, the patient remains in a normal sinus rhythm at the rate of 75. Hour and the patient is on low-dose norepinephrine running at 0.03 mcg/kg per minute. Blood work from today shows a component of non-anion Metabolic acidosis with a sodium level of 136 and a current of 110 and his serum bicarbonate 16. BNP isn't 9 with a creatinine of 0.59. The white cell count is at 18.4 with a hemoglobin of 15.6. The thyroid function test shows a normal free T4, no hypo glycemia, no fever, no other significant issues over the past 24 hours. The patient will be given a sedation holiday today. Note that an EEG was also done and the EEG showed abnormal EEG background with mixed frequency activity and there was evidence of mild generalized cerebral dysfunction consistent with encephalopathy and this could be potentially medication effect. No evidence of any acute seizure activity noted. The carotid Dopplers are also negative. 12/09/2021, I'm seeing the patient for a follow-up. The patient failed a sedation holiday yesterday because of increased agitation, asymmetry mechanical ventilator, hypertensive reaction marked tachypnea and hypotension.based on that , the sedation holiday was discontinued and the patient was given a CAT scan of the brain that showed cerebral atrophy without any acute abnormalities. This was a repeat CAT scan that was done over 24 hours. Following that, the patient was given a lumbar puncture. The cell count and ALP was extremely low and the protein was elevated at 86 and the patient had a normal glucose. Gram stain is still negative. Culture is still pending for now. HSV by PCR was also sent and the results are still pending for now. Case was discussed with neurology. There are plans to repeat EEG today. Meanwhile, I would suggest giving the patient another sedation holiday and reevaluate his mental status. The patient remains on a mechanical ventilator for now. He is an assist-control mode at a rate of 60 with a tidal volume of 600 and FiO2 of 50% with a PEEP of 5. Red asynchronous with a mechanical ventilator. Chest x-ray shows no acute abnormalities and ET tube is in a good location. PH is at 7.37 with a pCO2 of 47 and a pO2 of 179. No significant orotracheal secretions for now. The white cell count 17.4 with hemoglobin 13.6 and a platelet count of 388. The white cell count remains elevated and comparable compared to yesterday. Meanwhile, the electrolytes from today are all stable in the creatinine is also stable at 0.6. The patient remains on IV fluids of normal saline at the rate of 75 and propofol is running at 70 mcg/kg per minute. 8 2021, the patient is extubated and the patient is currently on oxygen at 6 L. Doing well. No specific complaints. He is a bit lethargic and is a and arousable and is following commands and answering questions appropriately. Denies having any chest pain. No focal neurological deficit and the patient is moving all 4 extremities without any limitation. A repeat EEG to be done today. There is a concern that the patient could've had a seizure episodes although this has not been officially confirmed. The patient was given a dose of Keppra and he may also started on a Maintenance of Subsequent EEG Shows seizure activity or any concerns for seizures. The patient otherwise is hemodynamically stable. The patient had a lumbar puncture and the patient is currently on acyclovir pending CSF HSV by PCR. Otherwise, as well as evaluation will be done and the patient is going to be fed today. He remains on normal saline at 75 mL an hour. He is afebrile for now. No other significant events. The patient was extubated without any major difficulties yesterday. 12/11/2021, the patient is clinically stable and the patient is following commands and answering questions. He remains on oxygen at 4 L. Based on elevated d-dimer levels, and workup was done. Doppler of the lower extremities were negative. The CT angiogram that was done this morning was obviously abnormal and the patient had multiple bilateral pulmonary emboli involving the right main only artery and bilateral segmental and subsegmental pulmonary arteries. There is also pleural effusion and a pancreatic pseudocyst is stable since 2016. As such, the Patient edition syncope could've been related to pulmonary embolism. Based on the findings, I started the patient on anticoagulation with Eliquis 10 milligrams by mouth twice a day. Meanwhile, the neuro workup included a lumbar puncture in the HSV by PCR was negative and IV acyclovir was discontinued today. The patient is afebrile. The patient is hemodynamically stable. The patient was able to ambulate yesterday. MRI of the brain is also to be completed today. Blood work shows a white cell count of 10.7 with hemoglobin 15.6 and a platelet count of 398 and the rest of the electrolytes and renal function are all stable. 12/12/2021, the patient is doing well. No specific complaints. Is on Eliquis 10 mg by mouth twice a day. No hemodynamic instability. No issues with chest pain or shortness of breath or hemoptysis. No seizure activity has been noted. The patient a chest with outside intensive care unit yesterday. There were labs work is still pending. Meanwhile, I repeated COVID 19 testing was done and came back negative. Objective - Vital Signs Vital signs: Vital Signs Temp 98.3 F 12/12/21 04:07 Pulse 88 12/12/21 08:25 Resp 15 12/12/21 04:07 BP 108/64 12/12/21 04:07 Pulse Ox 97 12/12/21 04:07 FiO2 50 12/09/21 12:00 Intake & Output 12/11/21 12/12/21 12/12/21 18:59 06:59 18:59 Intake Total 80 Output Total 300 Balance -220 Weight 83.4 kg 85.2 kg Intake: IV 80 0.9 NACL 80 Output: Urine 300 Other: Voiding Method Indwelling Catheter Toilet Urinal # Voids 1 1 1 # Bowel Movements 1 ABP, PAP, CO, CI - Last Documented Arterial Blood Pressure 160/54 - Exam No acute distress, extubated on 4 L of oxygen by nasal cannula Head exam was generally normal. There was no scleral icterus or corneal arcus. Mucous membranes were moist. Neck was supple and without jugular venous distension, thyromegaly, or carotid bruits. Carotids were easily palpable bilaterally. There was no adenopathy. Cardiovascular examination reveals regular rhythm rate. S1-S2 normal. No S3 or S4. No discernible murmur noted. Lungs reveal mostly clear breath sounds. Minimal scattered rhonchi. No wheezes or crackles. Breath sounds equal bilaterally. Abdomen soft bowel sounds are heard. No masses or tenderness. Extremities are intact. No cyanosis clubbing or edema. Skin is without rash or lesion. Neurologic examination alert and oriented 3 without any focal neurological def icits - Labs CBC & Chem 7: 12/11/21 05:20 12/11/21 05:20 Labs: Microbiology - Last 24 Hours (Table) 12/07/21 02:23 Blood Culture - Preliminary Blood No Growth after 120 hours 12/08/21 16:45 CSF Gram Stain - Preliminary Cerebral Spinal Fluid CSF Culture - Preliminary Assessment and Plan Plan: Acute syncope, possibly secondary to an acute pulmonary embolism, bilateral and the patient was found to have negative Dopplers. No strain pattern on the echocardiogram and the patient is going to be started on anticoagulation with Eliquis. The patient is currently on 10 mg of Eliquis twice a day Acute hypoxic/hypercapnic respiratory failure, improving and the patient is currently extubated the patient is currently on 4 L O2 nasal cannula, O2 will be gradually weaned off History of COPD/asthma. History of ongoing tobacco use with nicotine addiction. History of alcohol use, quantity unknown. The serum alcohol level at the time of admission was negative History of lymphoma, the patient has been in remission Neurologic abdominal aortic aneurysm currently measuring 5 cm in size based on the CT angiogram Previous history of prostate cancer. Questionable hyperammonemia. History of marijuana smoking and aggressive the urine drug screen was essentially negative. Plan Patient is currently out of the intensive care unit Continue the anticoagulation with Eliquis Wean FiO2 as tolerated IV to 40 mL an hour Echo was within normal limits MRI of the brain was noted that showed no acute abnormalities We'll continue to follow make further recommendations based on his progress. Discharge planning is in progress
--- NOTE | 2021-12-12 13:58 | P.PN ---
Subjective Progress Note Date: 12/12/21 The patient is seen at bedside and he feels drastically better. His who accompanies him agrees. Objective - Vital Signs Vital signs: Vital Signs Temp 98.3 F 12/12/21 04:07 Pulse 88 12/12/21 08:25 Resp 15 12/12/21 04:07 BP 108/64 12/12/21 04:07 Pulse Ox 97 12/12/21 04:07 FiO2 50 12/09/21 12:00 Intake & Output 12/11/21 12/12/21 12/12/21 18:59 06:59 18:59 Intake Total 80 Output Total 300 Balance -220 Weight 83.4 kg 85.2 kg Intake: IV 80 0.9 NACL 80 Output: Urine 300 Other: Voiding Method Indwelling Catheter Toilet Urinal # Voids 1 1 1 # Bowel Movements 1 ABP, PAP, CO, CI - Last Documented Arterial Blood Pressure 160/54 - Exam GENERAL: The patient is sitting at side of bed and is not in acute distress. NEUROLOGICAL: Higher mental function: The patient is awake, alert, oriented to self, place. C orrectly stated the year but stated the month is November. Patient is following simple commands. No aphasia and no neglect. Cranial nerves: The pupils are round, equal and reactive to light. Visual f ields are full to confrontation throughout. Extraocular movement is intact no nystagmus is noted. Facial sensation is normal to touch throughout. The facial strength is normal throughout. Tongue is midline and moved [id number] without any difficulty. No dysarthria is noted. Motor: The strength is 5 over 5 throughout. Normal tone and bulk. Cerebellum: Normal finger to nose heel to chin bilaterally. Sensation: Sensation is normal to touch throughout. SOME OF THE WORK-UP DURING THIS HOSPITAL VISIT: * Afebrile during entire stay. * On initial presentation his wbc 12.4K and slightly neurotrophilic that increased to 18.1K and now trending down * Ammonia level 167 and repeat 9. * UDS: Marijuana detected. Otherwise rest is not detected. Serum Alcohol <10. * EEG 12/07/2021 is reported as revealed background disorganization with mixed frequency activity, suggestive of mild encephalopathy or medication effect. No epileptiform activity was seen. * Carotid Doppler revealed limited exam, with less than 50% stenosis of bilateral ICA. * Repeat CT head performed 12/08/2021 showed mild atrophy and chronic small vessel ischemic change. I personally review CT head, agree with the findings. * Repeat EEG performed on 12/09/2021 is reported as showed background slowing of moderate degree, and possible left temporal sharp waves. The study was technically quite limited as patient was significantly moving during the study. * Routine EEG on 12/10/2021 is abnormal. The background slowing suggestive of mild to moderate encephalopathy. Otherwise there is no focal slowing, epil eptiform discharges or seizure in the EEG. Compared to the EEG on 12/09/2021 is seems better. * B12 537, folate 9.6, TSH is decreased 0.181, free T4 normal 1.26. * CSF study CSF showed clear, colorless, 1 WBC nucleated , 0 RBC, glucose 82 (normal is 40-70), protein 86 (normal is 60). * HSV-1 PCR was not detected as well as 2 was not detected. Hepatitis B service antigen B core antibody and hepatitis C antibody was nonreactive. * ESR is 8. * MR the brain with and without is reported as no evidence for acute intracranial process to explain the patient's seizure. No abnormal postcontrast enhancement. No acute/subacute CVA. Suspected bilateral petrous apex effusion. Nonspecific white matter changes likely secondary to small vessel ischemic disease * CTA of the chest is reported as multiple bilateral pulmonary emboli involving the right main pulmonary artery and bilateral segmental and subsegmental pulmonary arteries with findings concerning for right heart strain. - Labs CBC & Chem 7: 12/11/21 05:20 12/11/21 05:20 Labs: Microbiology - Last 24 Hours (Table) 12/07/21 02:23 Blood Culture - Preliminary Blood No Growth after 120 hours 12/08/21 16:45 CSF Gram Stain - Preliminary Cerebral Spinal Fluid CSF Culture - Preliminary Assessment and Plan Assessment: * Syncopal spell followed by severe agitation and confusion. cannot excluded postictal state (on repeat routine EEG on 12/09/2021 revealed possible left temporal sharps). * Altered mental status, possible hepatic encephalopathy. Patient's ammonia was highly elevated 167. However repeat ammonia level is < 9 (after one dose of lactulose). Encephalitis less likely, with normal white cell count in the CSF. Likewise CVA less likely---mentation improved * Acute pulmonary emboli * Macrocytosis, with remote history of alcoholism * History of lymphoma in remission. * History of prostate cancer * COPD * Thoracic aortic aneurysm Plan: * Repeat EEG performed on 12/09/2021 is reported as showed background slowing of moderate degree, and possible left temporal sharp waves. The study was technically quite limited as patient was significantly moving during the study. * But repeat EEG on 12/10/2021: It is mild to moderate encephalopathy. No focal slowing, epileptiform discharges or seizure on the EEG. * The patient and his would like the Keppra discontinued since the patient has not had any seizure on the any of the EEGs. He was initially stated on it since he had questioneable left temporal sharp waves. But will discontinue since no seizures. * I ordered 2.5 hour EEG ambulatory as outpatient which will be coordinated by aeronautical engineering technologist. He needs to follow-up with neurologist and as outpatient will defer modification of medication (antiepileptic as outpatient). * He is on Eliquis 10mg bid for Pulmonary emboli. * TSH is decreased 0.181, free T4 normal 1.26. IM to address abnormal thyroid functions. * Will defer the rest of medical management to primary team. * Upon discharge, the patient needs to follow-up with neurologist as outpatient within 1-2 weeks. The plan is discussed with patient and his nurse. There is no additional work-up needed from neurological perspective and clear for discharge. Will sign off. Please reconsult if needed. Nikhil Gomez M.D. Neuro-Hospitalist Time with Patient: Less than 30
--- NOTE | 2021-12-12 19:27 | P.PN ---
Subjective Progress Note Date: 12/12/21 Patient is a 71-year-old male tachycardia [facility] emergency department with altered mental status patient was found on the floor at home and the family brought him here patient is quite a bit agitated and was given at 10 mg dose of Ativan and the morphine after which her his mental status has worsened because of which patient was intubated. Patient although found to have hypercapnic respiratory failure with pCO2 of around 60 and pH of 7.22 patient appears to be a heavy smoker smoker was wheezing on exam, patient is being treated for COPD exacerbation. Patient had elevated ammonia level up to 125 patient does drink alcohol on a regular basis although liver enzymes are within normal. Within a f ew hours this ammonia level has come down to less than 9. Patient was given a dose of lactulose. Patient the ABGs improved now with pCO2 of around 51 and pH of around 7.34. Patient has elevated white cell count. Patient is on assist- control ventilation with tidal volume of 400 FiO2 of 50% PEEP of 5 set up respiratory rate of 22. Patient is breathing over the ventilator. Patient does have history of lymphoma unsure whether this is in remission will have to get the hip that history from the family. Patient is on propofol drip at this time occasionally still getting agitated. CT of the brain and did not show any significant abnormality of the thoracic CT did show 5 cm abdominal aortic an eurysm the size of which increased her from last test which was about 2 years ago from 3.5 cm. There was no evidence of leak or dissection. 12/08/2021 Patient is seen and evaluated in follow-up continues to be in the ICU and continues to be on the mechanical vent with FiO2 of 50% PEEP is 5. Weaning trials of propofol being conducted to assess mentation. Neurology and pulmonary following. Patient is continued on breathing treatments and IV steroids. Chest xray shows no acute process. Patient WBC is elevated possible reactivity and cultures are negative thus far. Patient is afebrile. Possible LP and repeat CT of the brain being discussed. EEG done showing abnormal due to encephalopathy with no seizure activity noted. Patient just weaned off levophed and continued on propofol. 2d echo ordered. Prognosis is guarded. 12/09/2021 Patient is seen this morning and continues to be in the ICU on mechanical vent with an FiO2 of 50% and PEEP is 5. Attempted weaning trials were unsuccessful y esterday as patient becomes recently agitated and hypertensive and is continued on propofol. Patient also requiring low-dose Levophed. LP was done yesterday with an elevation in protein and cultures are pending. Patient also had repeat CT of the brain yesterday which showed mild atrophy and chronic small vessel ischemia with no changes. Neurology is following planning on repeat EEG. WBC continues to be elevated although trending down at 17.5 other labs reviewed within normal limits. Chest x-ray this morning shows stable findings of COPD with no significant change from previous. Awaiting HSV results and patient is maintained on IV acyclovir and will continue at this time. Patient is afebrile and being evaluated for possible weaning trials again today with possible extubation. Prognosis remains guarded. Patient is continued on DuoNeb treatments and IV steroids have been discontinued. 12/10/2021 Patient is seen in follow-up this morning with sister and at the bedside with multiple questions. Multiple consultations following as patient continues to be in the ICU. Patient was successfully extubated yesterday and is currently maintained on 3-5 L via nasal cannula and weaning as tolerated. Patient is maintaining oxygen saturation above 90%. Neurology following and repeat EEG was done and report is pending at this time. MRI ordered also pending. Patient with questionable syncope and possible arrhythmia prior to arrival and will consult cardiology. Neurology workup in process. Patient continues with indwelling Hudson catheter and recommend discontinue. Recommend PT/OT evaluation. Patient is continued on acyclovir while awaiting for HSV results along with DuoNeb treatments and subcutaneous Lovenox for DVT prophylaxis. Patient was also started on Keppra while awaiting for EEG report per neurology. Chest x-ray today shows resolving bibasilar infiltrates mild residual remains in the right infrahilar region and was given a dose of IV Lasix. WBC is trending down at 12.4 and BMP has been reviewed and within normal limits. Sputum and blood cultures have been negative and CSF fluid currently pending at this time. Will also obtain a d-dimer along with sed rate and CRP and get a fasting lipid panel. After review of drug screen it was noted to be positive for THC. Multiple questions and concerns were answered to the best of our ability. 12/11/2021 Patient is seen today and is awaiting transfer from the ICU to med-surg. Multiple medical consultations following including pulmonary and neurology. Cardiology consulted. Patient did have an elevated d dimer and cta was ordered along with bilateral lower extremity venous dopplers. Patient is continued on lovenox. Patient covid was negative. Patient is currently on room air and has been up and working with physical therapy. MRI of the brain ordered and pending for today. HSV was negative and acyclovir was discontinued. Patient is afebrile and WBC is trending down. Other labs reviewed and within normal limits. Patient denies chest pain or shortness of breath. Patient is tolerating diet with no reports of nausea or vomiting noted. 12/12/2021 Patient is seen and evaluated in follow up today and is continued on 4L via VT and also being followed by neurology and pulmonary along with cardiology. Patient is on 10mg Eliquis bid for now and will titrate down to 5mg bid after one week. Recommend weaning FI02 as tolerated. Patient does not normally wear 02 outpatient. Patient with weakness and working with PT daily. Reports is improving. Tolerating oral intake and denies nausea or vomiting. Patient reports some lower abdominal pain and will obtain KUB xray. Patient is afebrile and denies worsening shortness of breath or chest pains. Neurology following and no seizure like activity noted. Discontinued keppra and recommend close outpatient follow up on discharge. Review of systems: Constitutional: No reports of fatigue, fever, or chills Cardiovascular: No reports of chest pain or palpitations Respiratory:no reports of shortness of breath or cough GI: No reports of nausea, vomiting, or diarrhea, reports some lower abdominal pain : No reports of dysuria or retention Neurovascular: reports of weakness, but is improving All medications have been reviewed Active Medications Acetaminophen (Acetaminophen Suppository 650 Mg Supp) 650 mg RECTAL Q4HR PRN PRN Reason: Fever And/ Or Mild Pain Albuterol/Ipratropium (Ipratropium-Albuterol 3 Ml Neb) 3 ml INHALATION RT-QID [facility] Last Admin: 12/12/21 15:36 Dose: 3 ml Apixaban (Apixaban 5 Mg Tab) 10 mg PO BID [facility]; Protocol Stop: 12/17/21 21:01 Last Admin: 12/12/21 07:31 Dose: 10 mg Famotidine (Famotidine 20 Mg Tab) 20 mg PO BID [facility] Last Admin: 12/12/21 07:32 Dose: 20 mg Sodium Chloride (Saline 0.9%) 1,000 mls @ 40 mls/hr IV .Q24H [facility] Last Admin: 12/12/21 05:26 Dose: Not Given Miscellaneous Information (Potassium Replacement Protocol 1 Each Misc) 1 each MISCELLANE DAILY PRN; Protocol PRN Reason: Per Protocol Morphine Sulfate (Morphine Sulfate 4 Mg/Ml Syringe) 4 mg IV Q2HR PRN PRN Reason: Pain Scale 8 to 10 Last Admin: 12/08/21 15:32 Dose: 4 mg Multi-Ingred Cream/Lotion/Oil/Oint (Artificial Tears Ointment 3.5 Gm Tube) 1 applic BOTH EYES Q4HR PRN PRN Reason: Dry Eye(s) Naloxone HCl (Naloxone 0.4 Mg/Ml 1 Ml Vial) 0.2 mg IV Q2M PRN PRN Reason: Opioid Reversal Thiamine HCl (Thiamine 100 Mg Tab) 100 mg PO DAILY [facility] Last Admin: 12/12/21 07:31 Dose: 100 mg PHYSICAL EXAMINATION: GENERAL: Awake, alert and oriented 3, thin built HEENT: Pupils are round and equally reacting to light. EOMI. No scleral icterus. No conjunctival pallor. Normocephalic, atraumatic. No pharyngeal erythema. No thyromegaly. CARDIOVASCULAR: S1 and S2 muffled PULMONARY: diminished breath sounds bilaterally with some scattered rhonchi noted ABDOMEN: Soft, tender on the left lower quadrant, non-distended, normoactive bowel sounds. No palpable organomegaly. MUSCULOSKELETAL: No joint swelling or deformity. EXTREMITIES: No cyanosis, clubbing, or pedal edema. NEUROLOGICAL: Cooperative,more awake and alert today, diffusely weak SKIN: No rashes. Assessment: -Altered mental status possibly secondary to acute pulmonary embolism, improved -hyperammonemia, improved. suspicion for hepatic encephalopathy is low -Respiratory acidosis and acute respiratory failure, hypercapnic respiratory failure acute secondary to COPD exacerbation -elevated D-dimer with bilateral pulmonary emboli with concern for right heart strain as noted on CT, no heart strain noted on echo -History of lymphoma, in remission -Leukocytosis which is reactive, improving -Acute COPD exacerbation -Nicotine use -Possible syncope, unwitnessed at home possibly secondary to PE -DVT prophylaxis: Eliquis -Full code Plan: Recommend to continue with current medications and pulmonary, cardiology, and neurology following, weaning FiO2 as tolerated and patient is currently maintained on on 4L via NC. Does not wear 02 at home. KUB done with no acute process noted as patient was having some lower abdominal pain on the left. Patient is continued on Eliquis 10mg BID for one week and then titrate to 5mg bid due to bilateral PE . venous dopplers of the lower extremities were negative for dvt. MRI of the brain was negative and neuro following and family requesting to stop the keppra. Neuro discontinued keppra and recommends outpatient neuro follow up with 2.5 hour EEG being arranged outpatient. Recommend physical therapy daily Recommend weaning FI02 as tolerated, possible home 02 assessment. Due to multiple complex medical issues, prognosis is guarded Possible discharge in 24-48 hours. The impression and plan of care has been dictated by Alize Orta, Nurse Practitioner as directed. Dr. Allison MD I have performed a history and examination and MDM of this patient, discussed the same with the dictator, and agree with the dictator's assessment and plan as written ,documented as a scribe. Based on total visit time, I have performed more than 50% of the visit. Objective - Vital Signs Vital signs: Vital Signs Temp 98.3 F 12/12/21 04:07 Pulse 88 12/12/21 08:25 Resp 15 12/12/21 04:07 BP 108/64 12/12/21 04:07 Pulse Ox 97 12/12/21 04:07 FiO2 50 12/09/21 12:00 Intake & Output 12/11/21 12/12/21 12/12/21 18:59 06:59 18:59 Intake Total 80 Output Total 300 Balance -220 Weight 83.4 kg 85.2 kg Intake: IV 80 0.9 NACL 80 Output: Urine 300 Other: Voiding Method Indwelling Catheter Toilet Urinal # Voids 1 1 # Bowel Movements 1 ABP, PAP, CO, CI - Last Documented Arterial Blood Pressure 160/54 - Labs CBC & Chem 7: 12/11/21 05:20 12/11/21 05:20 Labs: Abnormal Lab Results - Last 24 Hours (Table) 12/11/21 Range/Units 05:20 HDL Cholesterol 29.30 L (40.00-60.00) mg/dL Microbiology - Last 24 Hours (Table) 12/07/21 02:23 Blood Culture - Preliminary Blood No Growth after 120 hours 12/08/21 16:45 CSF Gram Stain - Preliminary Cerebral Spinal Fluid CSF Culture - Preliminary
[2021-12-13] MEDS: SODIUM CHLORIDE 0.9% 1,000 ML IV SCH (04:19)
[2021-12-13] MEDS: IPRATROPIUM-ALBUTEROL 3 ML NEB INHALATION SCH ×2 (07:52→11:25)
[2021-12-13] MEDS: APIXABAN 5 MG TAB PO SCH (08:30)
[2021-12-13] MEDS: THIAMINE 100 MG TAB PO SCH (08:30)
[2021-12-13] MEDS: FAMOTIDINE 20 MG TAB PO SCH (08:30)
[2021-12-13 11:43] LABS: HCT 37.3 % (39.6-50.0); HGB 12.2 g/dL (13.0-17.0); MCH 32.7 pg (27.0-32.0); MCHC 32.7 g/dL (32.0-37.0); Mean Platelet Volume 9.6 fL (9.5-12.2); NRBC Per 100 WBC 0 /100 WBCS (0.0-0.0); Platelet Count 436 X 10*3/uL (140-440); RBC 3.73 X 10*6/uL (4.40-5.60); RDW 13.5 % (11.5-14.5)
[2021-12-13 11:49] LABS: African American GFR (CKD) 111.6 (60.0-200.0); Anion Gap 8.4 mmol/L (10.00-18.00); Blood Urea Nitrogen 15.4 mg/dL (9.0-27.0); Calcium 8.5 mg/dL (8.7-10.3); Carbon Dioxide 31.6 mmol/L (20.0-27.5); Non-African American GFR(CKD) 96.3 (60.0-200.0); Potassium 4.1 mmol/L (3.5-5.5)
[2021-12-13 11:57] VITALS: BP 110/67; PULSE 81; RESP 20; TEMP 98
[2021-12-13 12:17] LABS: Basophils # (A) 0.06 X 10*3/uL (0.00-0.10); Basophils % (A) 0.4 %; Eosinophils # (A) 0.31 X 10*3/uL (0.04-0.35); Eosinophils % (A) 2.2 %; Immature Grans, Automated 0.6 %; Lymphocytes # (A) 1.73 X 10*3/uL (0.90-5.00); Lymphocytes % (A) 12.4 %; Monocytes # (A) 1.84 X 10*3/uL (0.20-1.00); Monocytes % (A) 13.1 %; Neutrophils # (A) 9.97 X 10*3/uL (1.80-7.70); Neutrophils % (A) 71.3 %; RBC Morphology NORMAL
--- NOTE | 2021-12-13 14:29 | P.PN ---
Subjective Progress Note Date: 12/13/21 On 12/08/2021, I'm seeing the patient for a follow-up. The patient remains intubated on a mechanical ventilator. This patient is known to have COPD and the patient is currently intubated on mechanical ventilator as the patient was found to be unresponsive. He collapsed at home and he was unconscious for a unknown period of time. EMS was brought to the scene and the patient was evaluated. The patient was brought into the emergency room he was quite agitated, he was intubated and placed on a mechanical ventilator. The workup despite the negative including a CAT scan of the brain that showed no acute abnormalities. CAT scan of the abdomen and pelvis using the CTA protocol showed an enlarging abdominal aortic aneurysm currently measuring about 5 cm in size. Nevertheless, there was no evidence of any dissection. The patient is currently on protocol running at 75 mcg/kg per minute. The patient remains on a mechanical ventilator on assist control mode at the rate of 22 with a tidal volume of 400 and FiO2 of 50% with a PEEP of 5. Blood gases showed a pH of 7.32 with a pCO2 of 45 and pO2 of 76. Chest x-ray shows no acute abnormalities. There is adequate expansion of both lungs and ET tube is in good location. Meanwhile, the patient remains in a normal sinus rhythm at the rate of 75. Hour and the patient is on low-dose norepinephrine running at 0.03 mcg/kg per minute. Blood work from today shows a component of non-anion Metabolic acidosis with a sodium level of 136 and a current of 110 and his serum bicarbonate 16. BNP isn't 9 with a creatinine of 0.59. The white cell count is at 18.4 with a hemoglobin of 15.6. The thyroid function test shows a normal free T4, no hypo glycemia, no fever, no other significant issues over the past 24 hours. The patient will be given a sedation holiday today. Note that an EEG was also done and the EEG showed abnormal EEG background with mixed frequency activity and there was evidence of mild generalized cerebral dysfunction consistent with encephalopathy and this could be potentially medication effect. No evidence of any acute seizure activity noted. The carotid Dopplers are also negative. 12/09/2021, I'm seeing the patient for a follow-up. The patient failed a sedation holiday yesterday because of increased agitation, asymmetry mechanical ventilator, hypertensive reaction marked tachypnea and hypotension.based on that , the sedation holiday was discontinued and the patient was given a CAT scan of the brain that showed cerebral atrophy without any acute abnormalities. This was a repeat CAT scan that was done over 24 hours. Following that, the patient was given a lumbar puncture. The cell count and ALP was extremely low and the protein was elevated at 86 and the patient had a normal glucose. Gram stain is still negative. Culture is still pending for now. HSV by PCR was also sent and the results are still pending for now. Case was discussed with neurology. There are plans to repeat EEG today. Meanwhile, I would suggest giving the patient another sedation holiday and reevaluate his mental status. The patient remains on a mechanical ventilator for now. He is an assist-control mode at a rate of 60 with a tidal volume of 600 and FiO2 of 50% with a PEEP of 5. Red asynchronous with a mechanical ventilator. Chest x-ray shows no acute abnormalities and ET tube is in a good location. PH is at 7.37 with a pCO2 of 47 and a pO2 of 179. No significant orotracheal secretions for now. The white cell count 17.4 with hemoglobin 13.6 and a platelet count of 388. The white cell count remains elevated and comparable compared to yesterday. Meanwhile, the electrolytes from today are all stable in the creatinine is also stable at 0.6. The patient remains on IV fluids of normal saline at the rate of 75 and propofol is running at 70 mcg/kg per minute. 8 2021, the patient is extubated and the patient is currently on oxygen at 6 L. Doing well. No specific complaints. He is a bit lethargic and is a and arousable and is following commands and answering questions appropriately. Denies having any chest pain. No focal neurological deficit and the patient is moving all 4 extremities without any limitation. A repeat EEG to be done today. There is a concern that the patient could've had a seizure episodes although this has not been officially confirmed. The patient was given a dose of Keppra and he may also started on a Maintenance of Subsequent EEG Shows seizure activity or any concerns for seizures. The patient otherwise is hemodynamically stable. The patient had a lumbar puncture and the patient is currently on acyclovir pending CSF HSV by PCR. Otherwise, as well as evaluation will be done and the patient is going to be fed today. He remains on normal saline at 75 mL an hour. He is afebrile for now. No other significant events. The patient was extubated without any major difficulties yesterday. 12/11/2021, the patient is clinically stable and the patient is following commands and answering questions. He remains on oxygen at 4 L. Based on elevated d-dimer levels, and workup was done. Doppler of the lower extremities were negative. The CT angiogram that was done this morning was obviously abnormal and the patient had multiple bilateral pulmonary emboli involving the right main only artery and bilateral segmental and subsegmental pulmonary arteries. There is also pleural effusion and a pancreatic pseudocyst is stable since 2016. As such, the Patient edition syncope could've been related to pulmonary embolism. Based on the findings, I started the patient on anticoagulation with Eliquis 10 milligrams by mouth twice a day. Meanwhile, the neuro workup included a lumbar puncture in the HSV by PCR was negative and IV acyclovir was discontinued today. The patient is afebrile. The patient is hemodynamically stable. The patient was able to ambulate yesterday. MRI of the brain is also to be completed today. Blood work shows a white cell count of 10.7 with hemoglobin 15.6 and a platelet count of 398 and the rest of the electrolytes and renal function are all stable. 12/12/2021, the patient is doing well. No specific complaints. Is on Eliquis 10 mg by mouth twice a day. No hemodynamic instability. No issues with chest pain or shortness of breath or hemoptysis. No seizure activity has been noted. The patient a chest with outside intensive care unit yesterday. There were labs work is still pending. Meanwhile, I repeated COVID 19 testing was done and came back negative. [id number], the patient is doing well, no new complaints and discharge planning progress and the patient is on anticoagulation with Eliquis. The patient is sat urating with mobility and the patient may need oxygen at 2 L outpatient basis. Home O2 will be arranged for him. He is showing significant abnormalities. Count is at 14 with a hemoglobin of 12.2 and his sodium level is at 140 with a 15 and a creatinine of 0.7. Objective - Vital Signs Vital signs: Vital Signs Temp 98 F 12/13/21 11:56 Pulse 81 12/13/21 11:56 Resp 20 09/03/22 11:56 BP 110/67 12/13/21 11:56 Pulse Ox 98 12/13/21 11:56 FiO2 21 12/12/21 19:49 Intake & Output 12/12/21 12/13/21 12/13/21 18:59 06:59 18:59 Weight 82 kg Other: Voiding Method Toilet # Voids 2 2 2 ABP, PAP, CO, CI - Last Documented Arterial Blood Pressure 160/54 - Exam No acute distress, extubated on 4 L of oxygen by nasal cannula Head exam was generally normal. There was no scleral icterus or corneal arcus. Mucous membranes were moist. Neck was supple and without jugular venous distension, thyromegaly, or carotid bruits. Carotids were easily palpable bilaterally. There was no adenopathy. Cardiovascular examination reveals regular rhythm rate. S1-S2 normal. No S3 or S4. No discernible murmur noted. Lungs reveal mostly clear breath sounds. Minimal scattered rhonchi. No wheezes or crackles. Breath sounds equal bilaterally. Abdomen soft bowel sounds are heard. No masses or tenderness. Extremities are intact. No cyanosis clubbing or edema. Skin is without rash or lesion. Neurologic examination alert and oriented 3 without any focal neurological deficits - Labs CBC & Chem 7: 12/13/21 06:59 12/13/21 06:59 Labs: Abnormal Lab Results - Last 24 Hours (Table) 12/13/21 12/13/21 Range/Units 06:59 06:59 WBC 14.00 H (4.50-10.00) X 10*3/uL RBC 3.73 L (4.40-5.60) X 10*6/uL Hgb 12.2 L (13.0-17.0) g/dL Hct 37.3 L (39.6-50.0) % MCV 100.0 H (80.0-97.0) fL MCH 32.7 H (27.0-32.0) pg Immature Gran # 0.09 H (0.00-0.04) X 10*3/uL Neutrophils # 9.97 H (1.80-7.70) X 10*3/uL Monocytes # 1.84 H (0.20-1.00) X 10*3/uL Carbon Dioxide 31.6 H (20.0-27.5) mmol/L Anion Gap 8.40 L (10.00-18.00) mmol/L BUN/Creatinine Ratio 22.00 H (12.00-20.00) Ratio Calcium 8.5 L (8.7-10.3) mg/dL Microbiology - Last 24 Hours (Table) 12/07/21 02:23 Blood Culture - Final Blood No Growth after 144 hours 12/08/21 16:45 CSF Gram Stain - Final Cerebral Spinal Fluid CSF Culture - Final Assessment and Plan Plan: Acute syncope, possibly secondary to an acute pulmonary embolism, bilateral and the patient was found to have negative Dopplers. No strain pattern on the echocardiogram and the patient is going to be started on anticoagulation with Eliquis. The patient is currently on 10 mg of Eliquis twice a day Acute hypoxic/hypercapnic respiratory failure, improving and the patient is curr ently extubated the patient is currently on 4 L O2 nasal cannula, O2 will be gradually weaned off History of COPD/asthma. History of ongoing tobacco use with nicotine addiction. History of alcohol use, quantity unknown. The serum alcohol level at the time of admission was negative History of lymphoma, the patient has been in remission Neurologic abdominal aortic aneurysm currently measuring 5 cm in size based on the CT angiogram Previous history of prostate cancer. Questionable hyperammonemia. History of marijuana smoking and aggressive the urine drug screen was essentially negative. Plan Arrange home O2 Discharge planning is in progress will need evaluation with Eliquis Possible discharge today
--- NOTE | 2021-12-14 21:41 | P.DS ---
Providers Date of admission: 12/07/21 03:07 Attending physician: Dani Paul Consults: 12/07/21 03:07 Consult Physician Stat Consulting Provider: Ranjit Gomez Consult Reason/Comments: Respiratory acidosis. Intubated patient. Do you want consulting provider notified?: Already Contacted Consult Physician Urgent Consulting Provider: Theodore Shell Consult Reason/Comments: Altered mental status. Do you want consulting provider notified?: Yes 12/11/21 15:01 Consult Physician Urgent Consulting Provider: [place] Yanez Consult Reason/Comments: hypoxia, post intubation, B/L PE, known to pt Do you want consulting provider notified?: Yes Primary care physician: Zaheer Berry [facility] Course: Diagnosis -Altered mental status possibly secondary to acute pulmonary embolism, resolved -hyperammonemia, improved. suspicion for hepatic encephalopathy is low -Respiratory acidosis and acute respiratory failure, hypercapnic respiratory failure acute secondary to COPD exacerbation -elevated D-dimer with bilateral pulmonary emboli with concern for right heart strain as noted on CT, no heart strain noted on echo -Abdominal aortic aneurysm measuring 5 cm -History of lymphoma, in remission -Leukocytosis which is reactive, improving -Acute COPD exacerbation -Nicotine use -Possible syncope, unwitnessed at home possibly secondary to PE -History of etoh abuse -History of prostate cancer Full Code Discharge Disposition Patient is discharged in stable condition on eliquis for positive bilateral pulmonary emboli. He does require home oxygen on discharge 2L nasal cannula, he dropped to 86% saturation while ambulating on room air. Patient recommended to follow up with neurology outpatient in 2 to 3 weeks with close monitoring for seizure activity. Recommending a 2.5 hour EEG outpatient which is being arranged. Patient will require homecare on discharge with home PT. He has improved and does not require subacute rehab at this time. He is given script for outpatient labs BMP and CBC in 2-3 days. Patient also instructed to follow up with pulmonary services. Hospital Course Patient is a 71-year-old male who is a patient of Dr Zaheer Berry with past medical history of COPD, asthma, lymphoma currently in remission, current daily smoker and also reports daily alcohol use. Patient presents to the emergency department with altered mental status patient was found on the floor at home and the family brought him here. On presentation patient is quite a bit agitated and was given at 10 mg dose of Ativan and the morphine after which his mental status has worsened because of which patient was intubated. Patient found to have hypercapnic respiratory failure with pCO2 of around 60 and pH of 7.22 patient appears to be a heavy smoker smoker was wheezing on exam, patient is being treated for COPD exacerbation. Patient had elevated ammonia level up to 125 patient does drink alcohol on a regular basis although liver enzymes are within normal. Within a few hours this ammonia level has come down to less than 9. Patient was given a dose of lactulose. Patient also had leukocytosis. Patient was intubated in the emergency room due to acute agitation and respiratory failure. Patient was monitored in the intensive care unit, on mechanical ventilator and also was on a propofol drip as he was having intermittent episodes of agitation. CT of the brain and did not show any significant abn ormality of the thoracic CT did show 5 cm abdominal aortic aneurysm the size of which increased her from last test which was about 2 years ago from 3.5 cm. There was no evidence of leak or dissection. Neurology was consulted for evaluation of altered mental status. Patient was evaluated and followed by pulmonary clinical safety manager. Patients work up while in the ICU intubated included, carotid doppler showing less than 50% stenosis in bilateral carotid bifurcations EEG showing mild generalized cerebral dysfunction as can be seen with encephalopathy or medication effect. No epileptiform activity noted. Patient also had chest xray follow up showing new pleural reaction and infiltrate lateral right lung base. Echocardiogram showing EF 60% with mild MR, TR, and no pericardial effusion Patient underwent lumbar puncture on 12/08/21 and started on prophylaxis for HSV. He also had repeat brain CT that day showing mild atrophy and chronic small vessel ischemia with no change from prior day. Patient was extubated on 12/10/21 and was weaned down to 6L nasal cannula. There was concern for possible seizure acitivty and patient was started on keppra for prophylaxis. He had repeat EEG again showing mild to moderate encephalopathy with no focal slowing epileptiform discharge, or seizure. Keppra was discontinued prior to discharge and neurology is recommending close follow up outpatient. Patient did have D-Dimer drawn on 12/10/21 which was 9.32 and chest CTA was performed which showed evidence of multiple bilateral pulmonary emboli involving the right main pulmonary artery and bilateral segmental and subsegmental pulmonary arteries with findings concerning for right heart strain. There is also trace bilateral pleural effusions and atelectasis. There is stable pancreatic cystic lesion from 2016. Patient had venous doppler negative for DVT bilaterally. Cardiology was consulted and echocardiogram was reviewed and there is felt to be no evidence for right heart strain, patient was started on oral anticoagulation therapy with eliquis. Patient had MRI completed showing no evidence for acute process to explain patients seizures. No acute subacute CVA. Nonspecific white matter changes likely secondary to small vessel ischemia. Patient was able to be weaned down to 2-3L liters of nasal cannula and his mentation had improved he was transferred out of the ICU evaluated on the medica l floor. He had a KUB for abdominal pain showing non-obstructive bowel gas pattern and also constipation. He did have a bowel movement. 12/13/2021 Patient evaluated today ambulating in room with out difficulty. He does get mildly short of breath with long distances but he recovers. He was found to have oxygen level of 86% on room air and will discharge with home oxygen, homecare and home PT. His labs today are showing white count of 14, hgb 12.2, sodium 140, potassium 4.1, BUN 15.4, creatinine 0.7, blood glucose of 103, calcium 8.5. He is denying chest pain, no palpations, no dizziness or lightheadedness. No nausea, vomiting or diarrhea. Abdominal pain has improved. He did have cholesterol panel completed showing triglycerides 147, cholesterol 146, LDL 87, HDL 29.3. His TSH was 0.181, however T4 was normal at 1.26. He also had negative urinalysis and blood culture, sputum culture and lumbar puncture culture have all come back negative. His lungs are clear, diminished, S1 S2 auscultated, his abdomen is soft and nontender, normoactive bowel sounds. Alert x 3, appropriate, focal neurological exam is negative. No acute events overnight. He is afebrile, heart rate 81, blood pressure 110/67, 98% on 3L nasal cannula. Patient to be discharge with above mentioned recommendations. Total time taken in discharge planning greater than 35 minutes. Please see medication reconciliation for a list of current medication. Thank you for allowing us to participate in the care of this patient. The impression and plan of care has been dictated by Nurse Dejah Olmos as directed. Dr. Allison MD I have performed a history and physical examination and medical decision making of this patient, discussed the same with the dictator, and agree with the dict ators assessment and plan as written, documented as a scribe. Based on total visit time, I have performed more than 50% of this visit. Patient Condition at Discharge: Fair Plan - Discharge Summary New Discharge Prescriptions: New Apixaban [Eliquis Starter Pack (for VTE)] 5 - 10 mg PO DIRECTED 30 Days #1 each Artificial Tears Ointment [Lubrifresh Pm Ointment] 1 applic BOTH EYES Q4HR PRN each PRN Reason: Dry Eye(S) Famotidine [Pepcid] 20 mg PO BID #60 tab Thiamine [Vitamin B-1] 100 mg PO DAILY #30 tab Continue Acetaminophen Tab [Tylenol] 650 mg PO Q6H PRN PRN Reason: Pain Cholecalciferol [Vitamin D3 (25 Mcg = 1000 Iu)] 25 mcg PO DAILY Albuterol Sulfate [Proair Hfa] 2 puff INHALATION RT-Q4H PRN PRN Reason: Shortness Of Breath Ipratropium-Albuterol Nebulize [Duoneb 0.5 mg-3 mg/3 ml Soln] 3 ml INHALATION RT-QID Discharge Medication List Acetaminophen Tab [Tylenol] 650 mg PO Q6H PRN 12/08/21 [History] Albuterol Sulfate [Proair Hfa] 2 puff INHALATION RT-Q4H PRN 12/08/21 [History] Cholecalciferol [Vitamin D3 (25 Mcg = 1000 Iu)] 25 mcg PO DAILY 12/08/21 [History] Ipratropium-Albuterol Nebulize [Duoneb 0.5 mg-3 mg/3 ml Soln] 3 ml INHALATION RT-QID 12/08/21 [History] Apixaban [Eliquis Starter Pack (for VTE)] 5 - 10 mg PO DIRECTED 30 Days #1 each 12/13/21 [Rx] Artificial Tears Ointment [Lubrifresh Pm Ointment] 1 applic BOTH EYES Q4HR PRN each 12/13/21 [Rx] Famotidine [Pepcid] 20 mg PO BID #60 tab 12/13/21 [Rx] Thiamine [Vitamin B-1] 100 mg PO DAILY #30 tab 12/13/21 [Rx] Follow up Appointment(s)/Referral(s): Ranjit Gomez DO [Doctor of Osteopathic Medicine] - 1 Week Zaheer Berry DO [Primary Care Provider] - 1-2 days Luis Max DO [STAFF PHYSICIAN] - 2 Weeks Ambulatory/Diagnostic Orders: Basic Metabolic Panel [LAB.AMB] Time Frame: 3 Days, Location: None Selected Complete Blood Count w/diff [LAB.AMB] Time Frame: 3 Days, Location: None Selected Activity/Diet/Wound Care/Special Instructions: Continue Eliquis 10 mg by mouth twice a day for tonight and 4 more days Beginning on 12/18/21 start eliquis 5 mg by mouth twice a day Continue on pepcid 20 mg by mouth twice a day to prevent GI upset while on blood thinners Monitor for rectal bleeding, vomiting with blood, which can be bright red, maroon, dark, black or tarry. Blood in the vomit can appear as coffee grounds. Notify provider or report to emergency center if you are experienced these symptoms. You are also at higher risk for prolonged bleeding. Follow up with primary care in 1 to 2 days after discharge Follow up with pulmonary team post discharge Follow up with neurologist in 1 to 2 weeks post discharge, one has been recommended for you Dr Max, you may choose to see a different one. Discharge Disposition: HOME WITH HOME HEALTH SERVICES
--- NOTE | 2021-12-17 07:47 | CDI ---
Documentation Clarification Form Date: 12/17/21 From: Sole Lorenzo Admit Date: 12/07/2021 03:07:00 AM Patient Name: Walter De Dios Visit Number: [id number] Discharge Date: 12/13/2021 02:55:00 PM ATTENTION: The Clinical Documentation Specialists (CDI) and [facility] Coding Staff appreciate your assistance in clarifying documentation. Please respond to the clarification below the line at the bottom and electronically sign. The CDI & [facility] Coding staff will review the response and follow-up if needed. Please note: Queries are made part of the Legal Health Record. If you have any questions, please contact the author of this message via ITS. Dr. Ya Cooper, Possible Hepatic and Toxic Encephalopathy is documented in the H&P, Dr Shell's consult and numerous progress notes. Additional clarification regarding the type of encephalopathy is requested. History/Risk Factors: bilateral PE, acute hypercapnia & hypoxic respiratory failure, COPD w acute exacerbation Clinical Indicators: Altered mental status etiology is not clear may be related to marijuana use and may be secondary to hypercapnic respiratory failure as well. It appears to have metabolic encephalopathy. Patient had elevated ammonia level but my suspicion for hepatic encephalopathy is low as the repeat test was less than 9 within few hours and only received 1 dose of lactulose. Labs: ammonia 137, <9 EE/28 - This is an abnormal EEG due to the background disorganization, with mixed frequency activity in bihemispheric region. This is suggestive of mild generalized cerebral dysfunction as can be seen with encephalopathy or medication effect. EE/31- This is an abnormal routine EEG. The background slowing is suggestive of [id number] encephalopathy. Otherwise, there is no focal slowing, epileptiform discharge, or seizure on the EEG. 12/07 CT/MRI Brain: Mild atrophy. No acute intracranial abnormality. Mild chronic small vessel ischemia. Treatment: EEG, carotid doppler, Lactulose then repeat ammonia level, Thiamine Please clarify the type of encephalopathy, if known: [ ] Metabolic Encephalopathy [ x ] Toxic Metabolic Encephalopathy [ ] Hepatic Encephalopathy [ ] Other, please specify [ ] Unable to determine MTDD
== END 2021-12-13 14:55 | disposition home health service (06) | DRG 208 ==
LOC: EC 00:23 → 2SICU 03:07 → 5NMEDONC 12-11 13:02 → 2SICU 12-11 13:04 → 5NMEDONC 12-11 13:37
PROVIDERS: ADMIT Hospitalist; ATTEND Hospitalist
PROC: 5A1945Z Respiratory Ventilation, 24-96 Consecutive Hours (ICD-10-PCS; principal; 2021-12-07)
PROC: 0BH17EZ Insertion of Endotracheal Airway into Trachea, Via Natural or Artificial Opening (ICD-10-PCS; principal; 2021-12-07)
PROC: 0D9670Z Drainage of Stomach with Drainage Device, Via Natural or Artificial Opening (ICD-10-PCS; 2021-12-07)
PROC: 3E043XZ Introduction of Vasopressor into Central Vein, Percutaneous Approach (ICD-10-PCS; 2021-12-07)
PROC: 3E0G76Z Introduction of Nutritional Substance into Upper GI, Via Natural or Artificial Opening (ICD-10-PCS; 2021-12-08)
PROC: 03HY32Z Insertion of Monitoring Device into Upper Artery, Percutaneous Approach (ICD-10-PCS; 2021-12-08)
PROC: 4A133J1 Monitoring of Arterial Pulse, Peripheral, Percutaneous Approach (ICD-10-PCS; 2021-12-08)
PROC: 009U3ZX Drainage of Spinal Canal, Percutaneous Approach, Diagnostic (ICD-10-PCS; 2021-12-08)
PROC: 02HV33Z Insertion of Infusion Device into Superior Vena Cava, Percutaneous Approach (ICD-10-PCS; 2021-12-08)
PROC: 4A133B1 Monitoring of Arterial Pressure, Peripheral, Percutaneous Approach (ICD-10-PCS; 2021-12-08)
DX: J96.02 Acute respiratory failure with hypercapnia (principal); I26.99 Other pulmonary embolism without acute cor pulmonale; G92.8 Other toxic encephalopathy; J44.1 Chronic obstructive pulmonary disease with (acute) exacerbation; E72.20 Disorder of urea cycle metabolism, unspecified; J90 Pleural effusion, not elsewhere classified; K86.3 Pseudocyst of pancreas; I67.89 Other cerebrovascular disease; E87.2 Acidosis; J98.11 Atelectasis; I95.9 Hypotension, unspecified; I71.2 Thoracic aortic aneurysm, without rupture; J96.01 Acute respiratory failure with hypoxia; F10.20 Alcohol dependence, uncomplicated; Z20.822 Contact with and (suspected) exposure to COVID-19; Z28.310 Unvaccinated for COVID-19; D75.89 Other specified diseases of blood and blood-forming organs; S41.112A Laceration without foreign body of left upper arm, initial encounter; S41.111A Laceration without foreign body of right upper arm, initial encounter; R55 Syncope and collapse; I45.10 Unspecified right bundle-branch block; F41.9 Anxiety disorder, unspecified; Y90.0 Blood alcohol level of less than 20 mg/100 ml; D72.829 Elevated white blood cell count, unspecified; K59.00 Constipation, unspecified; M19.90 Unspecified osteoarthritis, unspecified site; F17.210 Nicotine dependence, cigarettes, uncomplicated; Z71.6 Tobacco abuse counseling; Z79.899 Other long term (current) drug therapy; Z85.72 Personal history of non-Hodgkin lymphomas; Z85.46 Personal history of malignant neoplasm of prostate; Z88.6 Allergy status to analgesic agent; W18.30XA Fall on same level, unspecified, initial encounter; Y92.002 Bathroom of unspecified non-institutional (private) residence as the place of occurrence of the external cause
CPT/HCPCS: 31500; 36415; 36600; 70450; 70553; 71045; 71275; 74018; 74174; 80048; 80053; 80061; 80074; 80306; 80320; 81001; 82140; 82607; 82746; 82805; 82945; 83615; 84157; 84439; 84443; 84484; 85025; 85027; 85379; 85610; 85652; 85730; 86140; 87040; 87070; 87205; 87252; 87496; 87498; 87529; 87635; 87798; 89050; 93005; 93306; 93880; 93970; 94002; 94003; 94640; 94760; 95816; 96361; 96374; 96375; 99291

== ENCOUNTER → 2021-12-16 | Outpatient (CLI) | payer MEDICARE | END | disposition home or self-care (01) | LOC: LABWHC1 12:07 | PROVIDERS: ATTEND Nurse Practitioner Family | DX: Z71.2 Person consulting for explanation of examination or test findings (principal) | CPT/HCPCS: 36415; 80048; 85025 ==

== ENCOUNTER → 2021-12-19 | Outpatient (CLI) | payer MEDICARE ==
--- NOTE | 2021-12-20 02:10 | EEG ---
ELECTROENCEPHALOGRAM REPORT ELECTROENCEPHALOGRAM (EEG): TECHNIQUE: This is a report from a prolonged 2.5-hour outpatient digital video EEG performed using the 10/20 international electrode placement system. HISTORY: The patient was brought to the emergency room in respiratory distress. The patient was intubated. The patient had originally been found on the floor of his bathroom. CURRENT MEDICATIONS: Tylenol, vitamin B1, albuterol, Pepcid, vitamin D3, Eliquis, ProAir. FINDINGS: Recording start time: 12/19/2021 at 08:33 a.m. Recording end time: 12/19/2021 at 11:08 am. EVENTS: During this 2.5-hour outpatient video EEG, no clinical or electrographic seizures were recorded. BACKGROUND: The background activity consisted of 9 to 10 hertz rhythmic waveforms symmetrically seen through both posterior quadrants. ACTIVATION: Hyperventilation: Not performed. Photic stimulation: Symmetric driving seen. Sleep: Stages I and II sleep noted. ABNORMALITIES: On rare occasion, approximately 3 or 4 occasions, high amplitude sharp and slow waves were seen over the right frontotemporal region with equipotentiality at F8-T4. IMPRESSION: Abnormal 2.5-hour video EEG. No clinical or electrographic seizures were recorded. On rare occasion, sharp waves were seen over the right frontotemporal region that were epileptiform in nature. These findings suggest the presence of an epileptiform focus involving the corresponding region. Clinical correlation is recommended. [id number] / LISA: [id number] /
== END ==
LOC: NEUROMAIN 07:53
PROVIDERS: ATTEND Student in an Organized Health Care Education/Training Program
DX: R55 Syncope and collapse (principal); Z88.6 Allergy status to analgesic agent; Z87.891 Personal history of nicotine dependence
CPT/HCPCS: 95713

== ENCOUNTER → 2021-12-19 | Outpatient (CLI) | payer MEDICARE ==
[2021-12-19 18:35] LABS: African American GFR (CKD) 102.6 (60.0-200.0); Anion Gap 8.8 mmol/L (10.00-18.00); Blood Urea Nitrogen 16.3 mg/dL (9.0-27.0); Carbon Dioxide 29.6 mmol/L (20.0-27.5); Non-African American GFR(CKD) 88.6 (60.0-200.0); Potassium 5.5 mmol/L (3.5-5.5)
[2021-12-19 19:18] LABS: Basophils # (A) 0.13 X 10*3/uL (0.00-0.10); Basophils % (A) 0.9 %; Eosinophils # (A) 0.18 X 10*3/uL (0.04-0.35); Eosinophils % (A) 1.2 %; HCT 41.8 % (39.6-50.0); HGB 13.3 g/dL (13.0-17.0); Lymphocytes # (A) 1.62 X 10*3/uL (0.90-5.00); Lymphocytes % (A) 11.1 %; MCH 32.4 pg (27.0-32.0); MCHC 31.8 g/dL (32.0-37.0); Monocytes # (A) 1.16 X 10*3/uL (0.20-1.00); Monocytes % (A) 7.9 %; NRBC Per 100 WBC 0 /100 WBCS (0.0-0.0); Neutrophils # (A) 11.43 X 10*3/uL (1.80-7.70); Neutrophils % (A) 77.9 %; Platelet Count 884 X 10*3/uL (140-440); RDW 14.2 % (11.5-14.5); WBC 14.66 X 10*3/uL (4.50-10.00)
== END | disposition home or self-care (01) ==
LOC: LABWHC1 11:29
PROVIDERS: ATTEND Nurse Practitioner Family
DX: Z00.00 Encounter for general adult medical examination without abnormal findings (principal)
CPT/HCPCS: 36415; 80048; 85025

== ENCOUNTER 2022-09-01 22:25 | Observation (INO) | payer MEDICARE ==
[2022-09-01 22:30] LABS: Glucose,Whole Blood 148 mg/dL (70-110)
[2022-09-01] MEDS ORDERED: LORazepam 2 MG/ML INJ IV STA (22:36)
[2022-09-01 22:47] LABS: Basophils # (A) 0.1 k/uL (0-0.2); Basophils % (A) 1 %; Eosinophils # (A) 0.3 k/uL (0-0.7); Eosinophils % (A) 2 %; HCT 47.9 % (39.0-53.0); HGB 15.4 gm/dL (13.0-17.5); Lymphocytes # (A) 3.7 k/uL (1.0-4.8); Lymphocytes % (A) 30 %; MCH 32.3 pg (25.0-35.0); MCHC 32.1 g/dL (31.0-37.0); MCV 100.7 fL (80.0-100.0); Macrocytosis Slight; Mean Platelet Volume 7.7; Monocytes # (A) 0.7 k/uL (0-1.0); Monocytes % (A) 5 %; Neutrophils # (A) 7.4 k/uL (1.3-7.7); Neutrophils % (A) 59 %; Platelet Count 837 k/uL (150-450); RBC 4.75 m/uL (4.30-5.90); RDW 14.1 % (11.5-15.5); VBG PH 7.22 (7.31-7.41); WBC 12.5 k/uL (3.8-10.6)
[2022-09-01] MEDS ORDERED: SODIUM CHLORIDE 0.9% 1,000 ML IV STA (22:49)
[2022-09-01 22:55] LABS: Partial Thromboplastin Time 25.7 sec (22.0-30.0); Prothrombin Time 10.7 sec (9.0-12.0)
--- NOTE | 2022-09-01 23:30 | ED ---
General Adult HPI - General Source: family, RN notes reviewed, old records reviewed Mode of arrival: EMS <Rafael Soto - Last Filed: 09/02/22 00:47> <Ranjit Torrez - Last Filed: 09/02/22 00:58> - General Chief complaint: Altered Mental Status Stated complaint: ALTERED MENTAL STATUS Time Seen by Provider: 09/01/22 22:36 - History of Present Illness Initial comments: Patient is a 72-year-old male with past medical history remarkable for COPD on home oxygen who presents emergency Department with altered mental status. The patient apparently had acute onset altered mental status at home. EMS is the primary historian. He is agitated, and not cooperative with EMS. He is alert and oriented 2-3. Denies any acute complaints at this time but is confused. Presents for further evaluation at this time. Patient does not provide much history. (Rafael Soto) I did obtain further history from the patient's who states he was found unresponsive with suspected seizure activity. He was confused and postictal after this process. I did reevaluate the patient is alert and oriented and return to baseline. No complaints. He had a similar episode one year ago but was not placed on seizure medication. (Ranjit Torrez) - Related Data Home Medications Medication Instructions Recorded Confirmed Acetaminophen Tab [Tylenol] 650 mg PO Q6H PRN 12/08/21 12/08/21 Albuterol Sulfate [Proair Hfa] 2 puff INHALATION RT-Q4H PRN 12/08/21 12/08/21 Cholecalciferol [Vitamin D3 (25 25 mcg PO DAILY 12/08/21 12/08/21 Mcg = 1000 Iu)] Ipratropium-Albuterol Nebulize 3 ml INHALATION RT-QID 12/08/21 12/08/21 [Duoneb 0.5 mg-3 mg/3 ml Soln] Previous Rx's Medication Instructions Recorded Apixaban [Eliquis Starter Pack 5 - 10 mg PO DIRECTED 30 Days 12/13/21 (for VTE)] #1 each Artificial Tears Ointment 1 applic BOTH EYES Q4HR PRN each 12/13/21 [Lubrifresh Pm Ointment] Famotidine [Pepcid] 20 mg PO BID #60 tab 12/13/21 Thiamine [Vitamin B-1] 100 mg PO DAILY #30 tab 12/13/21 Apixaban [Eliquis] 5 mg PO BID 30 Days #60 tab 12/16/21 Allergies Allergy/AdvReac Type Severity Reaction Status Date / Time ibuprofen [From Motrin] Allergy Rash/Hives Verified 12/08/21 13:40 Review of Systems ROS Other: All systems not noted in ROS Statement are negative. <Rafael Soto - Last Filed: 09/02/22 00:47> ROS Other: All systems not noted in ROS Statement are negative. <Ranjit Torrez Buffy - Last Filed: 09/02/22 00:58> ROS Statement: Those systems with pertinent positive or pertinent negative responses have been documented in the HPI. Past Medical History Past Medical History: Asthma, Cancer, COPD Additional Past Medical History / Comment(s): Lymphoma , arthritis History of Any Multi-Drug Resistant Organisms: None Reported Past Surgical History: Tonsillectomy Additional Past Surgical History / Comment(s): mediport(not functioning), Past Anesthesia/Blood Transfusion Reactions: No Reported Reaction Additional Past Anesthesia/Blood Transfusion Reaction / Comment(s): only surg as child Past Psychological History: Anxiety Past Alcohol Use History: None Reported Past Drug Use History: None Reported - Past Family History Father Family Medical History: Cancer Mother Family Medical History: Cancer Sister(s) Family Medical History: Cancer <Rafael Soto - Last Filed: 09/02/22 00:47> General Exam <CharlesRafael - Last Filed: 09/02/22 00:47> - General Exam Comments Initial Comments: General: Patient is agitated, not cooperative. HEAD: Normal with no signs of head trauma. EYES: PERRLA, EOMI, conjunctiva normal, no discharge. Pupils are 3 mm equal bilaterally. ENT: Hearing grossly intact, normal oropharynx. RESPIRATORY: Clear breath sounds bilaterally. No wheezes, rales, or rhonchi. C/V: Tachycardic.. S1 and S2 auscultated, no edema, peripheral pulses 2+ and intact throughout ABD: Abd is soft, nontender, nondistended EXT: Normal range of motion, no obvious deformity SKIN: No rashes or lesions observed on exposed skin. NEURO: Alert and oriented 2.Placed and person. No obvious focal deficits. Exam limited due to mental status. (Rafael Soto) Course Vital Signs 09/01/22 09/01/22 22:26 23:52 Pulse Rate 108 H 89 Respiratory 24 20 Rate Blood Pressure 131/81 131/81 O2 Sat by Pulse 98 94 L Oximetry Medical Decision Making - Lab Data Result diagrams: 09/01/22 22:33 09/01/22 22:33 - EKG Data -: EKG Interpreted by Me <Rafael Soto - Last Filed: 09/02/22 00:47> - Lab Data Result diagrams: 09/01/22 22:33 09/01/22 22:33 <Ranjit Torrez - Last Filed: 09/02/22 00:58> - Medical Decision Making Was pt. sent in by a medical professional or institution (JACOB Gonzalez, PUBL[employer] SUPERVISOR, urgent care, hospital, or group home...) When possible be specific @ -No Did you speak to anyone other than the patient for history (EMS, parent, family, police, friend...)? What history was obtained from this source @ -EMS who provided the recent history for the patient. Did you review nursing and triage notes (agree or disagree)? Why? @ -I reviewed and agree with nursing and triage notes Were old charts reviewed (outside hosp., previous admission, EMS record, old EKG, old radiological studies, urgent care reports/EKG's, group home records)? Report findings @ -Old charts reviewed from November 2021, the patient was admitted and intubated for altered mental status. Differential Diagnosis (chest pain, altered mental status, abdominal pain women, abdominal pain men, vaginal bleeding, weakness, fever, dyspnea, syncope, headache, dizziness, GI bleed, back pain, seizure, CVA, palpatations, mental health, musculoskeletal)? @ -Differential Altered Mental Status: Hypoglycemia, DKA, hypercapnia, ETOH, overdose, CO poisoning, trauma, myxedema coma, HTN encephalopathy, infection, encephalitis, psychosis, intercranial hemorrhage, hepatic encephalopathy, meningitis, CVA, this is not meant to be an all-inclusive list EKG interpreted by me (3pts min.). @ -As above X-rays interpreted by me (1pt min.). @ -Chest x-ray shows possible pulmonary vascular congestion. Correlate with BNP. CT interpreted by me (1pt min.). @ -None done U/S interpreted by me (1pt. min.). @ -None done What testing was considered but not performed or refused? (CT, X-rays, U/S, labs)? Why? @ -None What meds were considered but not given or refused? Why? @ -None Did you discuss the management of the patient with other professionals (professionals i.e. Dr., PA, PUBLICATIONS PRODUCTION SUPERVISOR, lab, RT, psych nurse, licensed clinical social worker, pediatric ophthalmologist, teacher, contracts officer, case packer)? Give summary @ -No Was smoking cessation discussed for >3mins.? @ -No Was critical care preformed (if so, how long)? @ -No Were there social determinants of health that impacted care today? How? (Homelessness, low income, unemployed, alcoholism, drug addiction, transportation, low edu. Level, literacy, decrease access to med. care, fpc, rehab)? @ -No Was there de-escalation of care discussed even if they declined (Discuss DNR or withdrawal of care, Hospice)? DNR status @ -No What co-morbidities impacted this encounter? (DM, HTN, Smoking, COPD, CAD, Cancer, CVA, ARF, Chemo, Hep., AIDS, mental health diagnosis, sleep apnea, morbid obesity)? @ -None Was patient admitted / discharged? Hospital course, mention meds given and route, prescriptions, significant lab abnormalities, going to OR and other pertinent info. @ -Based on the patient's presentation and physical exam, presents with altered mental status. His blows baseline which is a and O 4 per EMS. He was given a small dose of Ativan by myself as he is not cooperative. We will obtain broad workup. Placed on his normal 2 L nasal cannula. This includes CT brain and chest x-ray. He will be symptomatically treated with 1 L fluid bolus at this time. Patient's care will be assumed by the night ER physician, Dr. Torrez at this time. Disposition is pending workup. Undiagnosed new problem with uncertain prognosis? @ -No Drug Therapy requiring intensive monitoring for toxicity (Heparin, Nitro, Insulin, Cardizem)? @ -No Were any procedures done? @ -No (Rafael Soto) I did reevaluate the patient, resting comfortably. History obtained from the that does suggest seizure activity this is consistent with his lactic acid and CO2 levels. Head CT is negative. Urinalysis is pending. Other laboratory testing is unremarkable. Patient's given a dose of Keppra and will be monitored with seizure precautions. He'll be admitted to internal medicine with neurology on consult. (Ranjit Torrez) - Lab Data Lab Results 09/01/22 09/01/22 09/01/22 Range/Units 22:28 22:33 22:33 WBC 12.5 H (3.8-10.6) k/uL RBC 4.75 (4.30-5.90) m/uL Hgb 15.4 (13.0-17.5) gm/dL Hct 47.9 (39.0-53.0) % MCV 100.7 H (80.0-100.0) fL MCH 32.3 (25.0-35.0) pg MCHC 32.1 (31.0-37.0) g/dL RDW 14.1 (11.5-15.5) % Plt Count 837 H (150-450) k/uL MPV 7.7 Neutrophils % 59 % Lymphocytes % 30 % Monocytes % 5 % Eosinophils % 2 % Basophils % 1 % Neutrophils # 7.4 (1.3-7.7) k/uL Lymphocytes # 3.7 (1.0-4.8) k/uL Monocytes # 0.7 (0-1.0) k/uL Eosinophils # 0.3 (0-0.7) k/uL Basophils # 0.1 (0-0.2) k/uL Macrocytosis Slight PT 10.7 (9.0-12.0) sec INR 1.0 (<1.2) APTT 25.7 (22.0-30.0) sec VBG pH (7.31-7.41) VBG pCO2 (37-51) mmHg VBG HCO3 (24-28) mmol/L Sodium (137-145) mmol/L Potassium (3.5-5.1) mmol/L Chloride (98-107) mmol/L Carbon Dioxide (22-30) mmol/L Anion Gap mmol/L BUN (9-20) mg/dL Creatinine (0.66-1.25) mg/dL Est GFR (CKD-EPI)AfAm (>60 ml/min/1.73 sqM) Est GFR (CKD-EPI)NonAf (>60 ml/min/1.73 sqM) Glucose (74-99) mg/dL POC Glucose (mg/dL) 148 H (70-110) mg/dL POC Glu Global Cmo Sravan Perales Plasma Lactic Acid Yonatan (0.7-2.0) mmol/L Calcium (8.4-10.2) mg/dL Total Bilirubin (0.2-1.3) mg/dL AST (17-59) U/L ALT (4-49) U/L Alkaline Phosphatase (38-126) U/L Ammonia (<30) umol/L Troponin I (0.000-0.034) ng/mL Total Protein (6.3-8.2) g/dL Albumin (3.5-5.0) g/dL Serum Alcohol mg/dL Influenza Type A (PCR) (Not Detectd) Influenza Type B (PCR) (Not Detectd) RSV (PCR) (Not Detectd) SARS-CoV-2 (PCR) (Not Detectd) 09/01/22 09/01/22 09/01/22 Range/Units 22:33 22:33 22:33 WBC (3.8-10.6) k/uL RBC (4.30-5.90) m/uL Hgb (13.0-17.5) gm/dL Hct (39.0-53.0) % MCV (80.0-100.0) fL MCH (25.0-35.0) pg MCHC (31.0-37.0) g/dL RDW (11.5-15.5) % Plt Count (150-450) k/uL MPV Neutrophils % % Lymphocytes % % Monocytes % % Eosinophils % % Basophils % % Neutrophils # (1.3-7.7) k/uL Lymphocytes # (1.0-4.8) k/uL Monocytes # (0-1.0) k/uL Eosinophils # (0-0.7) k/uL Basophils # (0-0.2) k/uL Macrocytosis PT (9.0-12.0) sec INR (<1.2) APTT (22.0-30.0) sec VBG pH 7.22 L (7.31-7.41) VBG pCO2 48 (37-51) mmHg VBG HCO3 19 L (24-28) mmol/L Sodium 138 (137-145) mmol/L Potassium 4.9 (3.5-5.1) mmol/L Chloride 102 (98-107) mmol/L Carbon Dioxide 13 L (22-30) mmol/L Anion Gap 23 mmol/L BUN 13 (9-20) mg/dL Creatinine 0.85 (0.66-1.25) mg/dL Est GFR (CKD-EPI)AfAm >90 (>60 ml/min/1.73 sqM) Est GFR (CKD-EPI)NonAf 88 (>60 ml/min/1.73 sqM) Glucose 144 H (74-99) mg/dL POC Glucose (mg/dL) (70-110) mg/dL POC Glu Global Cmo ID Plasma Lactic Acid Yonatan (0.7-2.0) mmol/L Calcium 9.6 (8.4-10.2) mg/dL Total Bilirubin 1.1 (0.2-1.3) mg/dL AST 40 (17-59) U/L ALT 24 (4-49) U/L Alkaline Phosphatase 78 (38-126) U/L Ammonia (<30) umol/L Troponin I <0.012 (0.000-0.034) ng/mL Total Protein 7.7 (6.3-8.2) g/dL Albumin 4.6 (3.5-5.0) g/dL Serum Alcohol <10 mg/dL Influenza Type A (PCR) (Not Detectd) Influenza Type B (PCR) (Not Detectd) RSV (PCR) (Not Detectd) SARS-CoV-2 (PCR) (Not Detectd) 09/01/22 09/01/22 Range/Units 23:18 23:52 WBC (3.8-10.6) k/uL RBC (4.30-5.90) m/uL Hgb (13.0-17.5) gm/dL Hct (39.0-53.0) % MCV (80.0-100.0) fL MCH (25.0-35.0) pg MCHC (31.0-37.0) g/dL RDW (11.5-15.5) % Plt Count (150-450) k/uL MPV Neutrophils % % Lymphocytes % % Monocytes % % Eosinophils % % Basophils % % Neutrophils # (1.3-7.7) k/uL Lymphocytes # (1.0-4.8) k/uL Monocytes # (0-1.0) k/uL Eosinophils # (0-0.7) k/uL Basophils # (0-0.2) k/uL Macrocytosis PT (9.0-12.0) sec INR (<1.2) APTT (22.0-30.0) sec VBG pH (7.31-7.41) VBG pCO2 (37-51) mmHg VBG HCO3 (24-28) mmol/L Sodium (137-145) mmol/L Potassium (3.5-5.1) mmol/L Chloride (98-107) mmol/L Carbon Dioxide (22-30) mmol/L Anion Gap mmol/L BUN (9-20) mg/dL Creatinine (0.66-1.25) mg/dL Est GFR (CKD-EPI)AfAm (>60 ml/min/1.73 sqM) Est GFR (CKD-EPI)NonAf (>60 ml/min/1.73 sqM) Glucose (74-99) mg/dL POC Glucose (mg/dL) (70-110) mg/dL POC Glu Global Cmo ID Plasma Lactic Acid Yonatan 5.1 H* (0.7-2.0) mmol/L Calcium (8.4-10.2) mg/dL Total Bilirubin (0.2-1.3) mg/dL AST (17-59) U/L ALT (4-49) U/L Alkaline Phosphatase (38-126) U/L Ammonia 30 H (<30) umol/L Troponin I (0.000-0.034) ng/mL Total Protein (6.3-8.2) g/dL Albumin (3.5-5.0) g/dL Serum Alcohol mg/dL Influenza Type A (PCR) Not Detected (Not Detectd) Influenza Type B (PCR) Not Detected (Not Detectd) RSV (PCR) Not Detected (Not Detectd) SARS-CoV-2 (PCR) Not Detected (Not Detectd) - EKG Data EKG Comments: 12-lead Electrocardiogram Interpretation Note EKG was reviewed and interpreted by myself. 12-lead ECG performed at 2244 is interpreted by me as revealing sinus tachycardia at a rate of 108 beats per minute. Left axis deviation. UT intervals 132 ms, QRS duration is 129 ms, QTc is 420 ms. Right bundle branch block pathology.. There were no ST or T wave abnormalities to suggest myocardial ischemia or injury. R wave progression across the precordium was satisfactory. By my interpretation this EKG is non- diagnostic for acute ischemia. (Rafael Soto) Disposition <Rafael Soto - Last Filed: 09/02/22 00:47> Is patient prescribed a controlled substance at d/c from ED?: No Time of Disposition: 00:58 <Ranjit Torrez - Last Filed: 09/02/22 00:58> Clinical Impression: New onset seizure Disposition: ADMITTED IP TO THIS HOSP Condition: Stable Instructions (If sedation given, give patient instructions): Seizure/Epilepsy Discharge Instructions & Follow-Up Referrals: Zaheer Berry DO [Primary Care Provider] - 1-2 days
--- NOTE | 2022-09-01 23:42 | XR ---
EXAMINATION TYPE: XR chest 1V portable DATE OF EXAM: 09/01/2022 COMPARISON: 12/10/2021 INDICATION: Altered mental status TECHNIQUE: Single frontal view of the chest is obtained. FINDINGS: The heart size is normal. The pulmonary vasculature is somewhat prominent. The lungs are clear. IMPRESSION: 1. Correlated for early volume overload.
--- NOTE | 2022-09-01 23:45 | CT ---
EXAMINATION TYPE: CT brain wo con DATE OF EXAM: 09/01/2022 COMPARISON: 12/08/2021 INDICATION: AMS DLP: 1189.4 mGycm, Automated exposure control for dose reduction was used. CONTRAST: None CT of the brain is performed utilizing 3 mm thick sections through the posterior fossa and 3 mm thick sections through the remaining calvarium. Study is performed within 24 hours of arrival to the hosp ital. No abnormal hyperdensity is present to suggest an acute intracranial hemorrhage. No mass lesion is evident. No acute infarcts are evident. Mild periventricular white matter hypodensity is present, likely on th e basis of chronic white matter ischemic changes. No significant interval change is evident. Ventricles and sulci are appropriate for the patient age. Paranasal sinuses and mastoid air cells within the [id number] are clear. IMPRESSIONS: 1. Mild periventricular white matter ischemic type changes with some age related atrophy. 2. No acute intracranial process. Follow-up MRI can be performed as clinically indicated.
[2022-09-02 00:28] LABS: Lactic Acid, Venous 5.1 mmol/L (0.7-2.0)
[2022-09-02 00:41] LABS: ALT 24 U/L (4-49); AST 40 U/L (17-59); African American GFR (CKD) >90 (>60 ml/min/1.73 sqM); Albumin 4.6 g/dL (3.5-5.0); Alcohol <10 mg/dL; Alkaline Phosphatase 78 U/L (38-126); Anion Gap 23 mmol/L; Blood Urea Nitrogen 13 mg/dL (9-20); Calcium 9.6 mg/dL (8.4-10.2); Carbon Dioxide 13 mmol/L (22-30); Chloride 102 mmol/L (98-107); Glucose 144 mg/dL (74-99); Non-African American GFR(CKD) 88 (>60 ml/min/1.73 sqM); Potassium 4.9 mmol/L (3.5-5.1); Sodium 138 mmol/L (137-145); Total Bilirubin 1.1 mg/dL (0.2-1.3); Total Protein 7.7 g/dL (6.3-8.2)
[2022-09-02] MEDS ORDERED: NALOXONE 0.4 MG/ML 1 ML VIAL IV PRN (00:54)
[2022-09-02] MEDS ORDERED: levETIRAcetam IV 1,500 MG in SODIUM CHLORIDE 0.9% 250 ML IVPB ONE (00:54)
[2022-09-02] MEDS ORDERED: LORazepam 2 MG/ML INJ IV PRN (00:56)
[2022-09-02 04:06] LABS: Appearance,Urine Clear (Clear); Bilirubin,Urine Negative (Negative); Blood,Urine Trace (Negative); Color,Urine Yellow; Glucose,Urine (UA) Negative (Negative); Hyaline Casts,Urine 4 /lpf (0-2); Ketones,Urine 1+ (Negative); Leukocyte Esterase,Urine Negative (Negative); Mucus,Urine Rare /hpf; Nitrite,Urine Negative (Negative); PH, Urine 5.5 (5.0-8.0); Protein,Urine Trace (Negative); RBC,Urine 8 /hpf (0-5); Squamous Epithelial Cell,Urine <1 /hpf (0-4); Urobilinogen,Urine <2.0 mg/dL (<2.0); WBC,Urine 6 /hpf (0-5)
[2022-09-02 04:07] LABS: Amphetamine Screen,Urine Not Detected (NotDetected); Barbiturate Screen,Urine Not Detected (NotDetected); Benzodiazepines Screen,Urine Detected (NotDetected); Cocaine Screen,Urine Not Detected (NotDetected); Methadone Screen, Urine Not Detected (NotDetected); Opiate Screen,Urine Not Detected (NotDetected); Oxycodone Screen, Urine Not Detected (NotDetected); Phencyclidine Screen,Urine Not Detected (NotDetected); Tricyclic Antidepressant,Urine Not Detected (NotDetected); Urn Cannabinoid Scrn Detected (NotDetected)
[2022-09-02] MEDS: APIXABAN 5 MG TAB PO SCH ×2 (11:25→20:26)
[2022-09-02] MEDS: levETIRAcetam 500 MG TAB PO SCH ×2 (11:26→20:26)
[2022-09-02] MEDS: METOPROLOL SUCCINATE (ER) 25 MG TAB.ER.24H PO SCH (11:26)
--- NOTE | 2022-09-02 13:31 | P.CNNES ---
History of Present Illness Consult date: 09/02/22 Requesting physician: Ranjit Torrez Reason for Consult: new onset seizure History of Present Illness: This is a 72-year-old gentleman who presented emergency department because altered mental status. Some of the history is obtained from medical record. Since the patient the per the ED note was found unresponsive with suspected seizure activity and he was confused and postictal while in the ED. He was reevaluated and the patient was alert oriented to return to baseline. Patient stated that he lives with a with his and he remembers going to the bed around 11 PM yesterday and all he remembers is waking up in the hospital. He does not recall what transpired that. He cannot tell me if he had urinary bowel incontinence. He denies of any headache, focal weakness any nausea vomiting. It seems that patient had a head trauma and had bruises over on the right frontal and the bilateral forearms head region. Of note she is known to our neurology team and he was seen in late November 2021 to December 2021. At that time he had a syncopal episode with severe agitation and confusion and it was felt that could not exclude a postictal state since on repeat routine EEG of November 2021 patient had possible left temporal sharps. He also had possible hepatic encephalopathy which the ammonia was slightly elevated at. And he had acute pulmonary embolism at that time. At that time the patient and his wanted the Keppra to be discontinued seizures the patient did not have any seizures and it was felt he had questionable temporal sharps. Patient had MRI of the brain in 12/11/2021 and it's reported as no evidence for acute intracranial process to explain the patient's seizure. No abnormal postcontrast enhancement. No acute or subacute stroke. I ordered a 2-1/2 hour EEG as an outpatient the patient had a performed in November 2021. It is reported as no clinical or graphic seizure. Patient had the rare occasional sharp was seen over the right frontal temporal region there were epileptiform in nature. The findings suggest the presence or epileptiform focus involving the corresponding region. Please refer to our notes for further details. Some other workup during his hospital visit consisted of: Initial white blood cells 12.5K without any neutrophilic lymphocytic predominance. Plasma lactic acid vein is 5. 1 repeat his 0.8. His glucose was in the 140s. The sodium, calcium, AST ALT, urine creatinine are within normal limits Ammonia level is 30 which is is at the borderline of considered abnormal Drug screen is negative for benzos and marijuana. Otherwise rest is not detect ed in the serum alcohol was less than 10. CT head is reported as mild. Ventricular white matter ischemic type changes with some age-related atrophy. No acute intracranial process. Follow-up MRI can be perform is contraindicated. I personally reviewed the CT agree with report. Review of Systems Review of system: The 12 point system was reviewed and apparent positive and negative per HPI. Past Medical History Past Medical History: Asthma, Cancer, COPD Additional Past Medical History / Comment(s): Lymphoma , arthritis History of Any Multi-Drug Resistant Organisms: None Reported Past Surgical History: Tonsillectomy Additional Past Surgical History / Comment(s): mediport(not functioning), Past Anesthesia/Blood Transfusion Reactions: No Reported Reaction Additional Past Anesthesia/Blood Transfusion Reaction / Comment(s): only surg as child Past Psychological History: Anxiety Past Alcohol Use History: None Reported Past Drug Use History: None Reported - Past Family History Father Family Medical History: Cancer Mother Family Medical History: Cancer Sister(s) Family Medical History: Cancer Medications and Allergies Home Medications Medication Instructions Recorded Confirmed Type Apixaban [Eliquis] 5 mg PO BID 30 Days #60 tab 12/16/21 09/02/22 Rx Metoprolol Succinate (ER) [Toprol 25 mg PO DAILY 09/02/22 09/02/22 History Xl] Rosuvastatin Calcium 5 mg PO DAILY 09/02/22 09/02/22 History Allergies Allergy/AdvReac Type Severity Reaction Status Date / Time ibuprofen [From Motrin] Allergy Rash/Hives Verified 09/02/22 07:39 Physical Examination - Vital Signs Vital Signs: Vital Signs Temp Pulse Pulse Resp BP BP Pulse Ox 09/02/22 13:00 97.8 F 77 16 104/67 97 09/02/22 11:26 81 18 103/63 95 09/02/22 05:21 98.1 F 60 17 107/71 96 09/02/22 03:46 68 18 129/83 95 09/02/22 01:03 96.4 F L 68 18 131/81 95 09/01/22 23:52 89 20 131/81 94 L 09/01/22 22:26 108 H 24 131/81 98 Intake and Output 09/01/22 09/02/22 09/02/22 22:59 06:59 14:59 Other: Weight 77.111 kg GENERAL: The patient is lying in bed and is not in acute distress. HENT: Bruise over the right frontal region. CHEST: No edema in lowers. LUNG: Not labored breathing. NEUROLOGICAL: Higher mental function: The patient is awake, alert, oriented to self, place and time. Patient is following commands. No aphasia and no neglect. Cranial nerves: The pupils are round, equal and reactive to light and accommodation. Visual seals are full to confrontation throughout. Extraocular movement is intact no nystagmus is noted. Facial sensation is normal to touch throughout. The facial strength is normal throughout. Hearing is normal bilaterally to hand rub. Tongue is midline and moved [id number] without any difficulty. No dysarthria is noted. Shoulder shrug is normal bilaterally. Motor: The strength is 5 over 5 throughout. Normal tone and bulk. Cerebellum: Normal finger to nose bilaterally. Sensation: Sensation is normal to touch throughout. Reflexes (right/left): 2+ throughout. Plantars are mute bilaterally. Results - Laboratory Findings CBC and BMP: 09/01/22 22:33 09/01/22 22:33 Abnormal Lab Findings: Abnormal Labs 09/01/22 09/01/22 09/01/22 22:28 22:33 22:33 WBC 12.5 H MCV 100.7 H Plt Count 837 H VBG pH VBG HCO3 Carbon Dioxide 13 L Glucose 144 H POC Glucose (mg/dL) 148 H Plasma Lactic Acid Yonatan Ammonia Urine Protein Urine Ketones Urine Blood Urine RBC Urine WBC Hyaline Casts Urine Mucus U Benzodiazepines Scrn U Marijuana (THC) Screen 09/01/22 09/01/22 09/02/22 22:33 23:18 03:45 WBC MCV Plt Count VBG pH 7.22 L VBG HCO3 19 L Carbon Dioxide Glucose POC Glucose (mg/dL) Plasma Lactic Acid Yonatan 5.1 H* Ammonia 30 H Urine Protein Trace H Urine Ketones 1+ H Urine Blood Trace H Urine RBC 8 H Urine WBC 6 H Hyaline Casts 4 H Urine Mucus Rare H U Benzodiazepines Scrn Detected H U Marijuana (THC) Screen Detected H Assessment and Plan Assessment: New-onset seizure (patient had 2.5 hr EEG on 12/2021 and revealed right frontotemporal sharp that increases seizures as outpatient but no active seizure. In 11/2021 routine EEG showed possible left temporal sharp but patient and his declined for antiseizure medication since it was suspected and he did not have seizure) Slight leukocytosis likely reactive Elevated lactic acid that was transient and resolved due to reactive from the seizures History of COPD History of lymphoma Plan: I started the patient on Keppra 500 mg every 12 hours. In the ED the patient was loaded with Keppra 1500 mg once. She does not need at any EEG since he had 2 routine EEG as well as a prolonged EEG in our facility and it reveals that he has discharges which is not going to knife changer. He also had MRI of the brain in 12/11/2021 and was negative for any intracranial process suggestive for seizures. No need to repeat the MRI. She is on seizure precaution seizure pads Will defer rest of the medical management to the primary team Per the [place] DM because of the seizure, to avoid driving for 6 month until seizure-free, to avoid using heavy machinery, swimming unassisted and avoid heights. This was notified to the patient. Upon discharge the patient needs to follow-up with a neurologist outpatient within 1-2 weeks. The plan discussed with the patient. There is no family member at bedside and the patient stated that his got a new number so once the or any family members visit the patient will be more than happy to update them. Thank you for the consultation Time with Patient: Greater than 30
[2022-09-03 08:58] LABS: Basophils # (A) 0.1 k/uL (0-0.2); Basophils % (A) 1 %; Eosinophils # (A) 0.2 k/uL (0-0.7); Eosinophils % (A) 2 %; HCT 44.7 % (39.0-53.0); HGB 14.3 gm/dL (13.0-17.5); Lymphocytes # (A) 1.3 k/uL (1.0-4.8); Lymphocytes % (A) 14 %; MCH 31.7 pg (25.0-35.0); Mean Platelet Volume 7.3; Monocytes # (A) 0.6 k/uL (0-1.0); Monocytes % (A) 7 %; Neutrophils # (A) 7.4 k/uL (1.3-7.7); Neutrophils % (A) 75 %; Platelet Count 682 k/uL (150-450); RBC 4.52 m/uL (4.30-5.90); RDW 13.8 % (11.5-15.5); WBC 9.8 k/uL (3.8-10.6)
[2022-09-03] MEDS ORDERED: ATORVASTATIN 10 MG TAB PO SCH (09:00)
[2022-09-03] MEDS: levETIRAcetam 500 MG TAB PO SCH (09:02)
[2022-09-03] MEDS: METOPROLOL SUCCINATE (ER) 25 MG TAB.ER.24H PO SCH (09:02)
[2022-09-03] MEDS: APIXABAN 5 MG TAB PO SCH (09:02)
[2022-09-03 09:33] LABS: African American GFR (CKD) >90 (>60 ml/min/1.73 sqM); Anion Gap 6 mmol/L; Blood Urea Nitrogen 11 mg/dL (9-20); Calcium 8.7 mg/dL (8.4-10.2); Carbon Dioxide 30 mmol/L (22-30); Chloride 103 mmol/L (98-107); Glucose 98 mg/dL (74-99); Non-African American GFR(CKD) >90 (>60 ml/min/1.73 sqM); Potassium 4.2 mmol/L (3.5-5.1); Sodium 139 mmol/L (137-145)
[2022-09-03 09:35] VITALS: RESP 17
[2022-09-03] MEDS ORDERED: LACTULOSE 20 GM/30 ML CUP PO ONE (10:26)
--- NOTE | 2022-09-03 10:30 | P.HPIM ---
History of Present Illness H&P Date: 09/02/22 Chief Complaint: Seizures Patient is a 72-year-old male with a known history of asthma/COPD on home oxygen, history of DVT on anticoagulation,, history of lymphoma and arthritis, anxiety was brought to the hospital due to altered mental status and seizures at home. EMS was called and patient was brought to ER. Patient was agitated and was not cooperative with EMS. Currently patient is awake alert and oriented 2- 3. On home oxygen. Denied any complaints of chest pain or shortness of breath. Patient states that he did not remember having seizures and by the time he woke up he is in the hospital. No prior history of seizures. Currently not on any A pleasant medications. Denied any complaints of fever chills no neck stiffness. No headache.. No other recent illnesses. No cough or sputum production. X chest x-ray showed correlate for early volume overload. CT head showed mild periventricular white matter ischemic type changes with some is related to atrophy. No acute intracranial process. Laboratory data WBC 12.5 hemoglobin 15.4 and platelets 337 Sodium 138 potassium 4.921-2 bicarb is 13 BUN 13 and creatinine 0.85, lactic acid 5.1 troponin 1 negative ammonia level is 30 Review of Systems Constitutional: Patient denies any fever or chills . No generalized weakness or weight loss. Abdomen: Patient denied nausea vomiting and diarrhea and abdominal pain. Cardiovascular: Patient denies any chest pain or short of breath no palpitations. Respiratory: patient denied any cough is from production. No shortness of breath Neurologic: Patient denied any numbness or tingling headache. Musculoskeletal: Patient denies any complaints of joint swelling or deformity. Skin: Negative Psychiatric: Negative Endocrine: No heat or cold intolerance. No recent weight gain. Genitourinary: No dysuria or hematuria. All other 14 point ROS negative except the above Past Medical History Past Medical History: Asthma, Cancer, COPD Additional Past Medical History / Comment(s): Lymphoma , arthritis History of Any Multi-Drug Resistant Organisms: None Reported Past Surgical History: Tonsillectomy Additional Past Surgical History / Comment(s): mediport(not functioning), Past Anesthesia/Blood Transfusion Reactions: No Reported Reaction Additional Past Anesthesia/Blood Transfusion Reaction / Comment(s): only surg as child Past Psychological History: Anxiety Past Alcohol Use History: None Reported Past Drug Use History: None Reported - Past Family History Father Family Medical History: Cancer Mother Family Medical History: Cancer Sister(s) Family Medical History: Cancer Medications and Allergies Home Medications Medication Instructions Recorded Confirmed Type Apixaban [Eliquis] 5 mg PO BID 30 Days #60 tab 12/16/21 09/02/22 Rx Metoprolol Succinate (ER) [Toprol 25 mg PO DAILY 09/02/22 09/02/22 History Xl] Rosuvastatin Calcium 5 mg PO DAILY 09/02/22 09/02/22 History Allergies Allergy/AdvReac Type Severity Reaction Status Date / Time ibuprofen [From Motrin] Allergy Rash/Hives Verified 09/02/22 07:39 Physical Exam Vitals: Vital Signs Temp Pulse Pulse Resp BP BP Pulse Ox 09/02/22 05: 98.1 F 60 17 107/71 96 09/02/22 03:46 68 18 129/83 95 09/02/22 01:03 96.4 F L 68 18 131/81 95 09/01/22 23:52 89 20 131/81 94 L 09/01/22 22:26 108 H 24 131/81 98 Intake and Output 09/01/22 09/02/22 09/02/22 22:59 06:59 14:59 Other: Weight 77.111 kg PHYSICAL EXAMINATION: Patient is lying in the bed comfortably, no acute distress, awake alert and oriented.. HEENT: Normocephalic. Neck is supple. Pupils reactive. Nostrils clear. Oral cavity is moist. Neck reveals no JVD, carotid bruits, or thyromegaly. CHEST EXAMINATION: Trachea is central. Symmetrical expansion. Lung seals clear to auscultation and percussion. CARDIAC: Normal S1, S2 with no gallops. No murmurs ABDOMEN: Soft. Bowel sounds normal. No organomegaly. No abdominal bruits. Extremities: reveal no edema. No clubbing or cyanosis Neurologically awake, alert, oriented x2-3 with well-coordinated movements. No focal deficits noted Skin: No rash or skin lesions. Psychiatric: Coperative. Nonsuicidal Musculoskeletal: No joint swelling or deformity. Normal range of motion. Results CBC & Chem 7: 09/03/22 08:36 09/03/22 08:36 Labs: Abnormal Lab Results - Last 24 Hours (Table) 09/01/22 09/01/22 09/01/22 Range/Units 22:28 22:33 22:33 WBC 12.5 H (3.8-10.6) k/uL MCV 100.7 H (80.0-100.0) fL Plt Count 837 H (150-450) k/uL VBG pH (7.31-7.41) VBG HCO3 (24-28) mmol/L Carbon Dioxide 13 L (22-30) mmol/L Glucose 144 H (74-99) mg/dL POC Glucose (mg/dL) 148 H (70-110) mg/dL Plasma Lactic Acid Yonatan (0.7-2.0) mmol/L Ammonia (<30) umol/L Urine Protein (Negative) Urine Ketones (Negative) Urine Blood (Negative) Urine RBC (0-5) /hpf Urine WBC (0-5) /hpf Hyaline Casts (0-2) /lpf Urine Mucus (None) /hpf U Benzodiazepines Scrn (NotDetected) U Marijuana (THC) Screen (NotDetected) 09/01/22 09/01/22 09/02/22 Range/Units 22:33 23:18 03:45 WBC (3.8-10.6) k/uL MCV (80.0-100.0) fL Plt Count (150-450) k/uL VBG pH 7.22 L (7.31-7.41) VBG HCO3 19 L (24-28) mmol/L Carbon Dioxide (22-30) mmol/L Glucose (74-99) mg/dL POC Glucose (mg/dL) (70-110) mg/dL Plasma Lactic Acid Yonatan 5.1 H* (0.7-2.0) mmol/L Ammonia 30 H (<30) umol/L Urine Protein Trace H (Negative) Urine Ketones 1+ H (Negative) Urine Blood Trace H (Negative) Urine RBC 8 H (0-5) /hpf Urine WBC 6 H (0-5) /hpf Hyaline Casts 4 H (0-2) /lpf Urine Mucus Rare H (None) /hpf U Benzodiazepines Scrn Detected H (NotDetected) U Marijuana (THC) Screen Detected H (NotDetected) Thrombosis Risk Factor Assmnt - DVT/VTE Prophylaxis DVT/VTE Prophylaxis: Pharmacologic Prophylaxis ordered Assessment and Plan Assessment: New onset seizures. Patient was started on antiplatelet medications. Mild leukocytosis, lactic acidosis likely due to see this COPD on home oxygen History of lymphoma History of DVT on anticoagulation Plan: Patient will be continued on telemetry monitoring, seizure precautions and fall precautions. Patient was IV Keppra in the ER. Continue with antiplatelet medications. Continue with home medications. Patient had tolerating EEG as well as prolonged EEG during recent admission showed discharges. Neurology is on board. Patient had MRI of the brain in December 2021 which showed no acute intracranial process.. Continue to follow closely. Time with Patient: Greater than 30
[2022-09-03 12:47] VITALS: BP 116/67; PULSE 68; TEMP 98
--- NOTE | 2022-09-03 13:29 | P.PN ---
Subjective Progress Note Date: 09/03/22 The patient seen at bedside and he feels he is doing the better. No further seizure like episodes. He feels is back to baseline. Objective - Vital Signs Vital signs: Vital Signs Temp 98 F 09/03/22 12:00 Pulse 68 09/03/22 12:00 Resp 17 09/03/22 12:00 BP 116/67 09/03/22 12:00 Pulse Ox 96 09/03/22 12:00 FiO2 Intake & Output 09/02/22 09/03/22 09/03/22 18:59 06:59 18:59 Intake Total 120 Balance 120 Weight 77.111 kg Intake: Oral 120 Other: Voiding Method Toilet Toilet # Voids 2 - Exam GENERAL: The patient is lying in bed and is not in acute distress. NEUROLOGICAL: Higher mental function: The patient is awake, alert, oriented to self, place and time. Patient is following commands. No aphasia and no neglect. Cranial nerves: The pupils are round, equal and reactive to light and accommodation. Visual seals are full to confrontation throughout. Extraocular movement is intact no nystagmus is noted. Facial sensation is normal to touch throughout. The facial strength is normal throughout. Hearing is normal bi laterally to hand rub. Tongue is midline and moved [id number] without any difficulty. No dysarthria is noted. Shoulder shrug is normal bilaterally. Motor: The strength is 5 over 5 throughout. Normal tone and bulk. Cerebellum: Normal finger to nose bilaterally. Sensation: Sensation is normal to touch throughout. Reflexes (right/left): 2+ throughout. Plantars are mute bilaterally. Some other workup during his hospital visit consisted of: Initial white blood cells 12.5K without any neutrophilic lymphocytic predominance. Plasma lactic acid vein is 5. 1 repeat his 0.8. His glucose was in the 140s. The sodium, calcium, AST ALT, urine creatinine are within normal limits Ammonia level is 30 which is is at the borderline of considered abnormal Drug screen is negative for benzos and marijuana. Otherwise rest is not detected in the serum alcohol was less than 10. CT head is reported as mild. Ventricular white matter ischemic type changes with some age-related atrophy. No acute intracranial process. Follow-up MRI can be perform is contraindicated. I personally reviewed the CT agree with report. - Labs CBC & Chem 7: 09/03/22 08:36 09/03/22 08:36 Labs: Abnormal Lab Results - Last 24 Hours (Table) 09/03/22 Range/Units 08:36 Plt Count 682 H (150-450) k/uL Assessment and Plan Assessment: New-onset seizure (patient had 2.5 hr EEG on 12/2021 and revealed right frontotemporal sharp that increases seizures as outpatient but no active se izure. In 11/2021 routine EEG showed possible left temporal sharp but patient and his declined for antiseizure medication since it was suspected and he did not have seizure) Slight leukocytosis likely reactive Elevated lactic acid that was transient and resolved due to reactive from the seizures History of COPD History of lymphoma Plan: Continue Keppra 500 mg every 12 hours. He was notified of side-effects of Keppra. He does not need at any EEG since he had 2 routine EEG as well as a prolonged EEG in our facility and it reveals that he has discharges which is not going to private branch exchange service advisor. He also had MRI of the brain in 12/11/2021 and was negative for any intracranial process suggestive for seizures. No need to repeat the MRI. He is on seizure precaution seizure pads Will defer rest of the medical management to the primary team Per the [facility] because of the seizure, to avoid driving for 6 month until seizure-free, to avoid using heavy machinery, swimming unassisted and avoid heights. This was notified to the patient. Upon discharge the patient needs to follow-up with a neurologist outpatient within 1-2 weeks. The plan discussed with the patient and primary team. No additional neurological work-up. Time with Patient: Less than 30
== END 2022-09-03 13:20 | disposition home or self-care (01) ==
LOC: EC 22:25 → 3SCARD 09-02 00:55 → INTOOBSV 09-02 00:55 → 3SCARD 09-02 02:22
PROVIDERS: ADMIT Hospitalist; ATTEND Hospitalist
DX: R56.9 Unspecified convulsions (principal); D72.829 Elevated white blood cell count, unspecified; R74.02 Elevation of levels of lactic acid dehydrogenase [LDH]; J44.9 Chronic obstructive pulmonary disease, unspecified; F41.9 Anxiety disorder, unspecified; I45.10 Unspecified right bundle-branch block; Z99.81 Dependence on supplemental oxygen; Z79.899 Other long term (current) drug therapy; Z79.01 Long term (current) use of anticoagulants; Z88.8 Allergy status to other drugs, medicaments and biological substances; Z85.72 Personal history of non-Hodgkin lymphomas; Z80.9 Family history of malignant neoplasm, unspecified; Z20.822 Contact with and (suspected) exposure to COVID-19; Z86.718 Personal history of other venous thrombosis and embolism; Z86.711 Personal history of pulmonary embolism
CPT/HCPCS: 96361; 96374; 96375; 99285; 36415 ×2; 93005; 83880; 80053; 80048; 82140; 82803; 83605 ×2; 84484; 85025 ×2; 85610; 85730; 81001; 80306; 87636; 71045; 70450; G0378 ×2; G0480; J2060; J1953; 80320

== ENCOUNTER → 2022-09-10 | Outpatient (CLI) | payer MEDICARE ==
[2022-09-11 02:17] LABS: Basophils # (A) 0.09 X 10*3/uL (0.00-0.10); Eosinophils # (A) 0.17 X 10*3/uL (0.04-0.35); Eosinophils % (A) 1.9 %; HCT 45.2 % (39.6-50.0); HGB 14.3 g/dL (13.0-17.0); Immature Grans, Automated 0.3 %; Lymphocytes # (A) 1.48 X 10*3/uL (0.90-5.00); Lymphocytes % (A) 16.5 %; MCH 32.3 pg (27.0-32.0); MCHC 31.6 g/dL (32.0-37.0); Mean Platelet Volume 9.5 fL (9.5-12.2); Monocytes # (A) 0.84 X 10*3/uL (0.20-1.00); Monocytes % (A) 9.4 %; NRBC Per 100 WBC 0 /100 WBCS (0.0-0.0); Neutrophils # (A) 6.37 X 10*3/uL (1.80-7.70); Neutrophils % (A) 70.9 %; Platelet Count 660 X 10*3/uL (140-440); RBC 4.43 X 10*6/uL (4.40-5.60); RDW 13.8 % (11.5-14.5); WBC 8.98 X 10*3/uL (4.50-10.00)
== END | disposition home or self-care (01) ==
LOC: LABWHC1 15:15
PROVIDERS: ATTEND Family Medicine
DX: D72.829 Elevated white blood cell count, unspecified (principal); T59.891D Toxic effect of other specified gases, fumes and vapors, accidental (unintentional), subsequent encounter
CPT/HCPCS: 36415; 82140; 85025

== ENCOUNTER → 2023-06-08 | Outpatient (CLI) | payer MEDICARE ==
--- NOTE | 2023-06-09 12:48 | MR ---
EXAMINATION TYPE: MR Prostate wo/w con DATE OF EXAM: 06/08/2023 9:05 AM COMPARISON: None. CLINICAL INDICATION:Male, 72 years old with history of C61 Prostate ca; Elevated PSA TECHNIQUE: Multi-planar, multi-sequence imaging of the pelvis is performed prior to and following the uncomplicated administration of bolus intravenous gadolinium. CONTRAST: 7.5 Gadavist Interpretive Criteria: PI-RADS v2.1 SERUM PSA: 7.6 on February 2022. 6.1 on November 2022. SURGICAL PATHOLOGY: No data available. FINDINGS: Prostatic dimensions: 5.1 x 7.1 x 4 point to cm. Ellipsoid Volume:79.63 (PSA density=0.08 ng/mL/mL) CENTRAL GLAND (Central and Transition Zones/CZ+TZ): Multiple bilateral, heterogenous appearing hypertrophic stromal nodules, without suspicious lesion. M edian lobe hypertrophy with protrusion into the base of the bladder. (PI-RADS 2) PERIPHERAL ZONE (PZ): Bilateral linear, indistinct wedgelike areas of low ADC, and low T2 signal, No evidence of masslike a bnormality, or localized perfusional hypervascularity, to further suggest a focus of clinically signi ficant prostate cancer. (PI-RADS 2) SEMINAL VESICLES (SV): Symmetric and unremarkable. PERIPROSTATIC TISSUES: Unremarkable. LYMPH NODES: No enlarged pelvic lymph node. REMAINING PELVIS: Trabeculated bladder wall likely secondary to chronic bladder outlet obstruction. No abnormal free or organized intrapelvic fluid collection. No pathologic bowel dilation or mural thickening. Colonic diverticula are present. Bilateral fat containing inguinal hernias. OSSEOUS STRUCTURES: No suspicious osseous abnormality. Heterogenous bone marrow with scattered low T1-T2 signal. IMPRESSION: 1. No specific features for high-risk prostate cancer. Maximum PI-RADS score: 2. 2. Moderate BPH, estimated gland volume 79.63 mL. 3. No suspicious osseous lesion. No lymphadenopathy. No evidence of prostate adenocarcinoma involving the periprostatic tissues. 4. Red marrow reconversion changes.
== END | disposition home or self-care (01) ==
LOC: RADMRIMAIN 08:10
PROVIDERS: ATTEND Urology
DX: C61 Malignant neoplasm of prostate (principal); N40.0 Benign prostatic hyperplasia without lower urinary tract symptoms
CPT/HCPCS: 72197; A9585

== ENCOUNTER → 2023-12-10 | Outpatient (CLI) | payer MEDICARE ==
--- NOTE | 2023-12-10 17:48 | XR ---
EXAMINATION TYPE: XR chest 2V DATE OF EXAM: 12/10/2023 1:03 PM CLINICAL INDICATION: Male, 73 years old with history of F17.210 Nicotine depend. J44.9 COPD; [facility] COMPARISON: Chest radiographs from 09/01/2022 TECHNIQUE: XR chest 2V Frontal view of the chest. FINDINGS: Lungs/Pleura: There is flattening of the diaphragm with increased lucency of the lungs. No evidence o f pneumothorax, pleural effusion or focal consolidation. Pulmonary vascularity: Unremarkable. Heart/mediastinum: Cardiomediastinal silhouette is unremarkable. Musculoskeletal: No acute osseous pathology. IMPRESSION: 1. No acute cardiopulmonary disease process. 2. COPD changes.
== END | disposition home or self-care (01) ==
LOC: RADXRMAIN 12:49
PROVIDERS: ATTEND Internal Medicine Sleep Medicine
DX: J44.9 Chronic obstructive pulmonary disease, unspecified (principal); F17.210 Nicotine dependence, cigarettes, uncomplicated
CPT/HCPCS: 71046

== ENCOUNTER → 2024-03-21 | Outpatient (CLI) | payer MEDICARE ==
[2024-03-21 15:17] LABS: African American GFR (CKD) >90 (>60 ml/min/1.73 sqM); Blood Urea Nitrogen 22 mg/dL (9-20); Non-African American GFR(CKD) >90 (>60 ml/min/1.73 sqM)
--- NOTE | 2024-03-21 22:27 | CT ---
EXAMINATION TYPE: CT abdomen w con DATE OF EXAM: 03/21/2024 3:52 PM COMPARISON: 11/29/2021 CLINICAL INDICATION: Male, 73 years old with history of R16.0 HEPATOMEGALY, NOT ELSEWHERE CLASSIFIED; Hepatomegaly, Pt was a poor historian TECHNIQUE: Axial CT abdomen w con;Sagittal and coronal reformats were created on a separate workstat ion. Contrast used:100ml mL of Isovue 300 with IV Contrast, (none if empty) Oral contrast used: with Oral Contrast (none if empty) CT DLP: 464.7 mGycm, Automated exposure control for dose reduction was used. FINDINGS: LOWER CHEST: Scarring changes bilaterally centrilobular emphysema changes. Coronary artery atheroscle rosis. ABDOMEN LIVER: r liver measures up to 17.6 cm in caudocranial dimension. Few scattered probable cysts present focal fatty infiltration near the falciform ligament GALLBLADDER AND BILE DUCTS: Unremarkable. PANCREAS: Pancreatic tail cyst measuring up to 16 mm and 13 Hounsfield units. No definitive evaluatio n. Marciano solid masses identified. SPLEEN: Unremarkable. ADRENAL GLANDS: Unremarkable. KIDNEYS AND URETERS: No evidence of hydronephrosis or renal calculus. The ureters are unremarkable. ABDOMEN & PELVIS STOMACH AND BOWEL: No evidence of bowel obstruction. PERITONEUM/RETROPERITONEUM: No evidence of pneumoperitoneum or free fluid. VASCULATURE: Infrarenal abdominal aortic aneurysm measuring 45 mm previously 42 mm 11/29/2021 with mur al thrombus. No evidence for dissection. MUSCULOSKELETAL: No acute osseous abnormalities. Moderate disc degeneration changes are present throu ghout the thoracolumbar spine. Inferior endplate Schmorl's node at the L1 vertebral body LYMPH NODES: No gross evidence for lymphadenopathy. SOFT TISSUE/ABDOMINAL WALL: Unremarkable IMPRESSION: 1. No evidence for acute abdominal process. 2. Infrarenal abdominal aortic aneurysm measuring 45 mm. Vascular surgical consultation recommended. 3. The liver is rather unremarkable with a few scattered cysts and measuring up to 17.6 cm in caudoc ranial dimension. 4. 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 [facility], , 03/21/2024 10:25 PM
== END | disposition home or self-care (01) ==
LOC: RADCTMAIN 14:33
PROVIDERS: ATTEND Family Medicine
DX: R16.0 Hepatomegaly, not elsewhere classified (principal); K86.2 Cyst of pancreas; I25.10 Atherosclerotic heart disease of native coronary artery without angina pectoris; J43.2 Centrilobular emphysema
CPT/HCPCS: 82565; 84520; 74160; 36415; Q9967